=== PATIENT | female | born 1960 | race African-American/Black ===

== ENCOUNTER 2018-12-19 09:01 | Day surgery (SDC) | payer OTHER ==
--- OUTSIDE RECORDS SUMMARY | 2018-12-19 09:10 | XMS REPORT | Continuity of Care Document ---
:1960 Author Organization Interface Problems Problem Status Onset Classification Date Comments Source Date Reported FLU LIKE SYMPTOMS Active 018 [place] Discharge Diagnosis: 12/20/2016 Chest pain, 017 [facility] unspecified Discharge Diagnosis: 12/20/2016 Viral infection, 017 [facility] unspecified CHEST PAIN Active [place] [place] M54.12 - Active OPID "RADICULOPATHY, 016 [facility] CERVICAL REGION CHEST PAIN, ARMS Active [place] Final: Radiculopathy, 11/25/2015 [facility] cervical [facility] Final: Radiculopathy, 11/25/2015 [facility] lumbar region [facility] Chest pain Resolved Problem 12/20/2016 [facility] [place] Diabetes Resolved Problem 12/20/2016 [facility] FH: Resolved Problem 12/20/2016 [facility] Hypercholesterolemia [facility] Acid reflux Resolved Problem 12/20/2016 [facility] [place] History of stroke Resolved Problem 12/20/2016 [facility] HTN - Hypertension Resolved Problem 12/20/2016 [facility] Morbid obesity Active Problem 12/20/2016 [facility] [place] Neuropathy Resolved Problem 12/20/2016 [facility] [place] Sleep apnea Resolved Problem 12/20/2016 [facility] [place] Diabetes Resolved Problem 06/18/2016 [facility] [place] FH: Resolved Problem 06/18/2016 [facility] Hypercholesterolemia [facility] [place] History of stroke Resolved Problem 06/18/2016 [facility] [place] HTN - Hypertension Resolved Problem 06/18/2016 [facility] [place] Medications Medication Details Route Status Patient Ordering Order Source Instructions Provider Date Ketorolac 30 mg, 1 mL, Inactive Route: IVP, Drug 2016 form: INJ, ONCE, Dosing Weight 115.909, kg, Priority: STAT, Start date: 12/16/16 23:27:00 CDT, Stop date: 12/16/16 23:27:00 CDTNotes: (Same as:Toradol) IV bolus must be given >15 seconds. Give IM administration slowly and deeply into the muscle. Not for use > 4 days MEDICATION WASTE Product Size: 30 mg Product Wasted: ___ mg Aspirin 81 mg, 1 tab, No Longer [place] Route: PO, Drug Active 2015 [place] form: ECTAB, Daily, Dosing Weight 113.778, kg, Start date: 06/16/16 9:00:00 GAUGE MACHINE OPERATOR, Duration: 30 day, Stop date: 07/15/16 9:00:00 CSTNotes: Do not crush or chew. (Same As: Ecotrin) pantoprazole 40 40 mg=1 tab, PO, Active [place] MG Enteric Daily, # 30 tab, 2015 [place] Coated Tablet 0 Refill(s), [Protonix] Pharmacy: [facility] [id number] Aspirin 81 MG 81 mg, PO, Active [place] Enteric Coated Daily, # 30 tab, 2016 [place] Tablet 0 Refill(s), Pharmacy: [facility] [id number] amLODIPine 5 mg 5 mg=1 tab, PO, Active [place] oral tablet Daily, # 30 tab, 2015 [place] 0 Refill(s), Pharmacy: [facility] [id number] Nitroglycerin 0.4 mg, 1 tab, Inactive [place] 0.4 MG Route: SL, Drug 2015 [place] Sublingual form: TAB, Tablet Q5Min, Dosing Weight 113.778, kg, PRN Chest Pain, Start date: 06/15/16 14:11:00 GAUGE MACHINE OPERATOR, Duration: 30 day, Stop date: 07/15/16 14:10:00 GAUGE MACHINE OPERATOR Amlodipine 5 mg, 1 tab, Inactive [place] Route: PO, Drug 2015 [place] form: TAB, Daily, Dosing Weight 113.778, kg, Start date: 06/15/16 12:00:00 GAUGE MACHINE OPERATOR, Duration: 30 day, Stop date: 07/15/16 9:00:00 CSTNotes: (Same as: Norvasc) GI cocktail 30 ml, Route: Inactive [place] PO, Drug Form: 2016 [place] SUSP, Dosing Weight 113.778, kg, ONCE, Routine, Start date: 06/15/16 10:41:00 GAUGE MACHINE OPERATOR, Stop date: 06/15/16 10:41:00 CSTNotes: G.I. Cocktail=antacid with simethicone 22.5 mL - lidocaine viscous 7.5 mL Aspirin 325 MG 325 mg, 1 tab, Inactive [place] Enter[place] Coated Route: PO, Drug 2015 Tablet form: ECTAB, Daily, Dosing Weight 115.909, kg, Start date: 06/15/16 9:00:00 GAUGE MACHINE OPERATOR, Duration: 30 day, Stop date: 07/14/16 9:00:00 CSTNotes: (Do Not Crush) Do not crush or chew. Acetaminophen 1 tab, PO, Q6H, Active [place] 325 MG / PRN for pain, # 2016 [place] Hydrocodone 24 tab, 0 Bitartrate 10 Refill(s) MG Oral Tablet [[place] [address]] baclofen 20 mg 20 mg=1 tab, PO, Active [place] oral tablet BID, PRN Spasms, 2015 [place] # 60 tab, 0 Refill(s) dapagliflozin 1 TABLET, PO, Active [place] propanediol 5 Daily, 0 2015 [place] MG Oral Tablet Refill(s) [Farxiga] Alprazolam 1 MG 1 mg=1 tab, PO, Active [place] Oral Tablet TID, PRN 2016 [place] Anxiety, 0 Refill(s) gabapentin 600 600 mg=1 tab, Active [place] MG Oral Tablet PO, TID, # 270 2015 [place] tab, 0 Refill(s) solifenacin 5 mg=1 tab, PO, Active [place] succinate 5 MG Daily, # 90 tab, 2015 [place] Oral Tablet 0 Refill(s) [VESICARE] Saline Flush 10 ml, Route: No Longer [place] 0.9% IVP, Drug Form: Active [place] INJ, Dosing Weight 115.909, kg, Q12H, Start date: 06/14/16 21:00:00 GAUGE MACHINE OPERATOR, Duration: 30 day, Stop date: 07/14/16 9:00:00 CSTNotes: (Same as: BD Posiflush) Insulin, 6 unit, 0.06 mL, No Longer [place] Aspart, Human Route: SUB-Q, Active 2015 [facility] Drug form: SOLN, TID-Before Meals, Dosing Weight 115.909, kg, PRN Blood Glucose Results, Start date: 06/14/16 18:45:00 GAUGE MACHINE OPERATOR, Duration: 30 day, Stop date: 07/14/16 18:44:00 CSTNotes: Roll in palms of hands gently; Do not shake vigorously. (Same as: NovoLOG) "single patient use only" WASTE: F/P - Black; E - Municipal Trash Bin Stable for 28 days at room temperature. Expires in days from Da te Glucagon 1 mg, Route: IM, No Longer [place] Drug form: Active 2015 [place] PDR/INJ, PRN, Dosing Weight 115.909, kg, PRN Blood Glucose Results, Start date: 06/14/16 18:45:00 GAUGE MACHINE OPERATOR, Duration: 30 day, Stop date: 07/14/16 18:44:00 GAUGE MACHINE OPERATOR Dextrose 50% 25 gm, 50 mL, No Longer [place] Syringe Route: IVP, Drug Active 2015 [place] Form: INJ, Dosing Weight 115.909, kg, PRN, PRN Blood Glucose Results, Start date: 06/14/16 18:45:00 GAUGE MACHINE OPERATOR, Duration: 30 day, Stop date: 07/14/16 18:44:00 GAUGE MACHINE OPERATOR Saline Flush 10 ml, Route: No Longer [place] 0.9% IVP, Drug Form: Active 2015 [place] INJ, Dosing Weight 115.909, kg, PRN, PRN Line Flush, Start date: 06/14/16 18:41:00 GAUGE MACHINE OPERATOR, Duration: 30 day, Stop date: 07/14/16 18:40:00 CSTNotes: (Same as: BD Posiflush) Nitroglycerin 0.4 mg, 1 tab, No Longer [place] Route: SL, Drug Active 2015 [place] form: TAB, Q5Min, Dosing Weight 115.909, kg, PRN Chest Pain, Start date: 06/14/16 18:41:00 GAUGE MACHINE OPERATOR, Duration: 3 doses or times, Stop date: Limited # of timesNotes: (Same as:Nitroquick, Nitrostat) "Do Not Crush" Sublingual tablet Acetaminophen 650 mg, 2 tab, No Longer [place] Route: PO, Drug Active 2015 [place] form: TAB, Q4H, Dosing Weight 115.909, kg, PRN Pain 1-3/Temp > 100.4 F, Start date: 06/14/16 18:38:00 GAUGE MACHINE OPERATOR, Duration: 30 day, Stop date: 07/14/16 18:37:00 CSTNotes: Do not exceed 4 gm/day. (Same as: Tylenol) Ondansetron 4 mg, 2 mL, No Longer [place] Route: IVP, Drug Active 2015 [place] form: INJ, Q6H, Dosing Weight 115.909, kg, PRN Nausea & Vomiting, Start date: 06/14/16 18:38:00 GAUGE MACHINE OPERATOR, Duration: 30 day, Stop date: 07/14/16 18:37:00 CSTNotes: (Same as: Dariela) MEDICATION WASTE Product Size: 4 mg Product Wasted: ___ mg Morphine 2 mg, 1 mL, No Longer [place] Route: IVP, Drug Active 2015 [place] form: INJ, Q4H, Dosing Weight 115.909, kg, PRN Pain Score 7-10, Start date: 06/14/16 18:38:00 GAUGE MACHINE OPERATOR, Duration: 30 day, Stop date: 07/14/16 18:37:00 CSTNotes: (Same as:MORPhine Sulfate) Morphine 2 mg, 1 mL, Inactive [place] Route: IVP, Drug 2015 [place] form: INJ, ONCE, Dosing Weight 115.909, kg, Priority: STAT, Start date: 06/14/16 16:09:00 GAUGE MACHINE OPERATOR, Stop date: 06/14/16 16:09:00 CSTNotes: (Same as:MORPhine Sulfate) Nitroglycerin 0.4 mg, 1 tab, No Longer [place] Route: SL, Drug Active 2015 [place] form: TAB, Q5Min, Dosing Weight 115.909, kg, PRN Chest Pain, Start date: 06/14/16 16:09:00 GAUGE MACHINE OPERATOR, Duration: 3 doses or times, Stop date: Limited # of timesNotes: (Same as:Nitroquick, Nitrostat) "Do Not Crush" Sublingual tablet Saline Flush 10 mL, Route: No Longer [place] 0.9% IVP, Drug Form: Active [place] INJ, Dosing Weight 115.909, kg, PRN, PRN Line Flush, Start date: 06/14/16 16:09:00 GAUGE MACHINE OPERATOR, Duration: 30 day, Stop date: 07/14/16 16:08:00 CSTNotes: (Same as: BD Posiflush) Aspirin 324 mg, 4 tab, Inactive [place] Route: PO, Drug 2015 [place] form: CHEWTAB, ONCE, Dosing Weight 115.909, kg, Priority: STAT, Start date: 06/14/16 16:09:00 GAUGE MACHINE OPERATOR, Stop date: 06/14/16 16:09:00 CSTNotes: Take with food. Allergies, Adverse Reactions, Alerts Substance Category Reaction Severity Reaction Status Date Comments Source type Reported Immunizations Immunization Date Given Site Status Last Updated Comments Source Results Order Name Results Value Reference Date Interpretation Comments Source Range Chest 2 Chest 2 CHEST TWO VIEW 08/29 - views DX views - [facility] INDICATION: Cough and congestion. Patient having difficulty swallowing and breathing. Patient complains of a sore throat since yesterday Read by: Reyes Vail MD Dictated Date/time: 08/29/17 11:56 Electronically Signed by: Reyes Vail MD 08/29/17 11:57 FINAL REPORT COMPARISON: 06/14/2016 chest x-ray FINDINGS: The lungs are clear. The pleura, cardiomediastinal silhouette and bony thorax are normal. IMPRESSION: Negative. END IMPRESSION SL: [id number] CARDIAC BNP <2 pg/mL <=100 12/17 ENZYMES pg/mL /2016 [facility] ELECTROLYT Sodium Lvl 140 meq/L 135 - 145 12/17 ES [facility] ELECTROLYT Potassium 3.6 meq/L 3.5 - 5.1 12/17 ES Lvl [facility] ELECTROLYT Chloride Lvl 105 meq/L 95 - 109 12/17 [facility] ELECTROLYT CO2 26 meq/L 24 - 32 12/17 [facility] ELECTROLYT AGAP 12.6 meq/L 10.0 - 12/17 ES 20.0 [facility] ELECTROLYT Calcium Lvl 8.9 mg/dL 8.5 - 10.5 12/17 ES [facility] ELECTROLYT eGFR 115 12/17 Result Comment: The eGFR is calculated using the CKD-EPI formula. In most young, healthy individuals the eGFR will be >90 mL/ min/1.73m2. The eGFR declines with age. An eGFR of 60-89 may be normal in ES mL/min/1. some populations, particularly the elderly, for whom the CKD-EPI formula has not been extensively validated. Use of the eGFR is not recommended in the following populations: [place] [id number] Individuals with unstable creatinine concentrations, including patients and those with serious co-morbid conditions. Patients with extremes in muscle mass or diet. The data above are obtained from the National Kidney Disease Education Program (NKDEP) which additionally recommends that when the eGFR is used in patients with extremes of body mass index for purposes of drug dosing, the eGFR should be multiplied by the estimated BMI. ELECTROLYT Glucose Lvl 160 mg/dL 70 - 99 12/17 [facility] ELECTROLYT BUN 20 mg/dL 7 - 22 12/17 [facility] ELECTROLYT Creatinine 0.61 mg/dL 0.50 - 12/17 ES Lvl 1.40 [facility] CARDIAC Troponin-I null 0.00 - 12/17 EN[place]YMES 0.40 [facility] CHEM PANEL eGFR 97 12/17 Result Comment: The eGFR is calculated using the CKD-EPI formula. In most young, healthy individuals the eGFR will be >90 mL/ min/1.73m2. The eGFR declines with age. An eGFR of 60-89 may be normal in mL/min/1. some populations, particularly the elderly, for whom the CKD-EPI formula has not been extensively validated. Use of the eGFR is not recommended in the following populations: [place] [address] Individuals with unstable creatinine concentrations, including patients and those with serious co-morbid conditions. Patients with extremes in muscle mass or diet. The data above are obtained from the National Kidney Disease Education Program (NKDEP) which additionally recommends that when the eGFR is used in patients with extremes of body mass index for purposes of drug dosing, the eGFR should be multiplied by the estimated BMI. CHEM PANEL Potassium 5.2 meq/L 3.5 - 5.1 12/17 Result Lvl /2017 Comment: [facility] Specimen is hemolyzed. Recommend recollect if a more accurate quantificatio n of potassium is desired. SK at 12/16/2016 23:13 CHEM PANEL Sodium Lvl 137 meq/L 135 - 145 12/17 [facility] CHEM PANEL Creatinine 0.78 mg/dL 0.50 - 12/17 MH Lvl 1.40 [facility] CHEM PANEL BUN 19 mg/dL 7 - 22 12/17 [facility] CHEM PANEL Glucose Lvl 144 mg/dL 70 - 99 12/17 [facility] CHEM PANEL CO2 26 meq/L 24 - 32 12/17 [facility] CHEM PANEL AGAP 12.2 meq/L 10.0 - 12/17 MH 20.0 [facility] CHEM PANEL Chloride Lvl 104 meq/L 95 - 109 12/17 [facility] CHEM PANEL Calcium Lvl 9.1 mg/dL 8.5 - 10.5 12/17 [facility] HEMATOLOGY MCV 84.8 fL 80.0 - 12/17 98.0 /2016 [facility] HEMATOLOGY MCH 27.3 pg 27.0 - 12/17 31.0 /2016 [facility] HEMATOLOGY Platelet 211 K/CMM 133 - 450 12/17 [facility] HEMATOLOGY MPV 9.8 fL 7.4 - 10.4 12/17 [facility] HEMATOLOGY MCHC 32.2 g/dL 32.0 - 12/17 36.0 /2016 [facility] HEMATOLOGY RDW 14.2 % 11.5 - 12/17 MH 14.5 [facility] HEMATOLOGY Hgb 12.9 g/dL 12.0 - 12/17 16.0 [facility] HEMATOLOGY Hct 40.1 % 36.0 - 12/17 48.0 /2017 [facility] HEMATOLOGY RBC 4.73 M/CMM 4.20 - 12/17 MH 5.40 /2017 [facility] HEMATOLOGY WBC 11.4 K/CMM 3.7 - 10.4 12/17 [facility] HEMATOLOGY Eosinophils 0.1 K/CMM 0.0 - 0.5 12/17 MH # /2016 [facility] HEMATOLOGY Monocytes # 0.7 K/CMM 0.0 - 0.8 12/17 [facility] HEMATOLOGY Segs-Bands # 6.5 K/CMM 1.5 - 8.1 12/17 [facility] HEMATOLOGY Basophils 0.3 % 0.0 - 1.0 12/17 [facility] HEMATOLOGY Lymphocytes 3.7 K/CMM 1.0 - 5.5 12/17 # /2016 [facility] HEMATOLOGY Eosinophils 0.5 % 0.0 - 4.0 12/17 [facility] HEMATOLOGY Monocytes 6.6 % 2.0 - 12.0 12/17 [facility] HEMATOLOGY Segs 58.8 % 45.0 - 12/17 75.0 [facility] HEMATOLOGY Plt Morph Normal 12/17 [facility] (12/16/16 10:40 PM) HEMATOLOGY Lymphocytes 33.8 % 20.0 - 12/17 40.0 [facility] HEMATOLOGY RBC Morph Normal 12/17 [facility] (12/16/16 10:40 PM) Chest Chest 1view Clinical Indication: Dyspnea - sob cp 12/16 - 1view DX - [facility] Comparison: None Read by: Song Stevenson MD Dictated Date/time: 12/16/16 23:17 FINDINGS: Electronically Signed by: Song Stevenson MD 12/16/16 23:19 FINAL REPORT The frontal chest radiograph shows decreased lung volumes without interstitial or airspace opacities, pleural effusions or pneumothorax. The cardiomediastinal contours are borderline in size with mild pulmonary vascular congestion and with aortic tortuosity. There are postoperative changes in the cervical region. IMPRESSION: There is borderline cardiac enlargement with mild pulmonary vascular engorgement but no definite congestive failure is identified. SL: 82 CHEM PANEL Calcium Lvl 8.8 mg/dL 8.5 - 10.5 06/15 [place] CHEM PANEL Chloride Lvl 103 meq/L 95 - 109 06/15 [place] CHEM PANEL Sodium Lvl 140 meq/L 135 - 145 06/15 [place] CHEM PANEL Potassium 4.1 meq/L 3.5 - 5.1 06/15 [place] CHEM PANEL CO2 28 meq/L 24 - 32 06/15 [place] CHEM PANEL eGFR 108 06/15 Result Comment: The eGFR is calculated using the CKD-EPI formula. In most young, healthy individuals the eGFR will be >90 mL/ min/1.73m2. The eGFR declines with age. An eGFR of 60-89 may be normal in [place] mL/min/1.7 some populations, particularly the elderly, for whom the CKD-EPI formula has not been extensively validated. Use of the eGFR is not recommended in the following populations: [place] 3m2 Individuals with unstable creatinine concentrations, including patients and those with serious co-morbid conditions. Patients with extremes in muscle mass or diet. The data above are obtained from the National Kidney Disease Education Program (NKDEP) which additionally recommends that when the eGFR is used in patients with extremes of body mass index for purposes of drug dosing, the eGFR should be multiplied by the estimated BMI. CHEM PANEL BUN 25 mg/dL 7 - 22 06/15 MH [facility] CHEM PANEL Creatinine 0.72 mg/dL 0.50 - 06/15 [place] Lvl 1.40 [facility] CHEM PANEL Glucose Lvl 146 mg/dL 70 - 99 06/15 [place] CHEM PANEL AGAP 13.1 meq/L 10.0 - 06/15 MH [place] 20.0 [place] HEMATOLOGY WBC 9.3 K/CMM 3.7 - 10.4 06/15 [place] HEMATOLOGY Hgb 12.6 g/dL 12.0 - 06/15 MH [place] 16.0 [place] HEMATOLOGY Hct 39.8 % 36.0 - 06/15 MH [place] 48.0 /2015 [place] HEMATOLOGY RBC 4.69 M/CMM 4.20 - 06/15 MH [place] 5.40 [place] HEMATOLOGY MCH 26.9 pg 27.0 - 06/15 MH [place] 31.0 [place] HEMATOLOGY MCV 84.8 fL 80.0 - 06/15 MH [place] 98.0 /2015 [place] HEMATOLOGY MCHC 31.7 g/dL 32.0 - 06/15 MH [place] 36.0 [place] HEMATOLOGY RDW 14.7 % 11.5 - 06/15 MH [place] 14.5 [place] HEMATOLOGY Platelet 242 K/CMM 133 - 450 06/15 [place] HEMATOLOGY MPV 9.6 fL 7.4 - 10.4 06/15 [place] HEMATOLOGY Segs 54.6 % 45.0 - 06/15 MH [place] 75.0 /2015 [place] HEMATOLOGY Segs-Bands # 5.1 K/CMM 1.5 - 8.1 06/15 [place] HEMATOLOGY Basophils 0.6 % 0.0 - 1.0 11/11 MH [place] /2016 [place] HEMATOLOGY Monocytes 6.7 % 2.0 - 12.0 06/15 [place] /2016 [place] HEMATOLOGY Lymphocytes 37.6 % 20.0 - 06/15 [place] 40.0 /2016 [place] HEMATOLOGY Eosinophils 0.5 % 0.0 - 4.0 06/15 [place] /2016 [place] HEMATOLOGY Monocytes # 0.6 K/CMM 0.0 - 0.8 06/15 [place] /2016 [place] HEMATOLOGY Basophils # 0.1 K/CMM 0.0 - 0.2 06/15 [place] /2016 [place] HEMATOLOGY Eosinophils 0.0 K/CMM 0.0 - 0.5 06/15 [place] # /2016 [place] HEMATOLOGY Lymphocytes 3.5 K/CMM 1.0 - 5.5 06/15 [place] # /2016 [place] CARDIAC Troponin-I null 0.00 - 06/15 [place] 0.40 [place] CARDIAC Total CK 35 unit/L 12 - 191 06/15 [place] /2016 [place] CARDIAC Troponin-I null 0.00 - 06/15 [place] EN[place] 0.40 [place] CARDIAC Total CK 69 unit/L 12 - 191 06/15 [place] /2016 [place] LIPIDS HDL 53 mg/dL >=61 mg/dL 06/15 [place] /2016 [place] LIPIDS Chol 232 mg/dL <=199 06/15 [place] mg/dL /2016 [place] LIPIDS CHD Risk 4.38 3.90 - 06/15 [place] 5.80 /2015 [place] LIPIDS LDL 111 mg/dL <=99 mg/dL 06/15 [place] (Calculated) /2015 [place] LIPIDS VLDL 68 06/15 [place] /2015 [place] LIPIDS Trig 340 mg/dL <=149 06/15 [place] mg/dL /2016 [place] URINE AND UA RBC 1 /HPF 0 - 2 06/14 [place] STOOL /2016 [place] URINE AND UA Sq Epi Many /LPF Few /LPF 06/14 [place] STOOL 2016 [place] URINE AND UA Mucus Few /LPF None Seen 06/14 [place] STOOL /LPF /2015 [place] URINE AND UA WBC 6 /HPF 0 - 5 06/14 [place] STOOL /2016 [place] URINE AND UA Leuk Est Negative Negative 06/14 [place] STOOL /2016 [place] (06/14/16 5:36 PM) URINE AND UA Blood Negative Negative 06/14 [place] STOOL /2015 [place] (06/14/16 5:36 PM) URINE AND UA Nitrite Negative Negative 06/14 [place] (06/14/16 5:36 PM) URINE AND UA <=1.0 0.1 - 1.0 06/14 [place] STOOL Urobilinogen mg/dL [facility] URINE AND UA Ketones Negative Negative 06/14 [place] mg/dL mg/dL [facility] URINE AND UA Bili Negative Negative 06/14 [place] *NA* (06/14/16 5:36 PM) URINE AND UA Color Light Yellow Yellow 06/14 [place] *NA* (06/14/16 5:36 PM) URINE AND UA Turbidity Slight Clear 06/14 [place] *ABN* (06/14/16 5:36 PM) URINE AND UA Spec Grav 1.029 <=1.030 06/14 [place] STOOL [facility] URINE AND UA Glucose 500 mg/dL Negative 06/14 [place] STOOL mg/dL [facility] URINE AND UA pH 5.0 5.0 - 8.0 06/14 [place] STOOL [facility] URINE AND UA Protein Negative Negative 06/14 [place] STO[place] mg/dL mg/dL [facility] VIRAL - Influ A Negative Negative 06/14 [place] SEROLOGY [facility] (06/14/16 5:23 PM) VIRAL - Influ B Negative Negative 06/14 [place] SEROLOGY [facility] (06/14/16 5:23 PM) CARDIAC Total CK 81 unit/L 12 - 191 06/14 [place] ENZYMES [facility] CARDIAC Troponin-I null 0.00 - 06/14 [place] ENZYMES 0.40 [facility] CARDIAC CK MB 0.7 ng/mL 0.5 - 3.6 06/14 [place] ENZYMES [facility] CARDIAC CK MB Index 0.9 0.0 - 2.5 06/14 [place] ELECTROLYT AGAP 16.3 meq/L 10.0 - 06/14 [place] ES 20.0 /2015 [place] ELECTROLYT B/C Ratio 28 6 - 25 06/14 [place] ELECTROLYT eGFR 83 06/14 Result Comment: The eGFR is calculated using the CKD-EPI formula. In most young, healthy individuals the eGFR will be >90 mL/ min/1.73m2. The eGFR declines with age. An eGFR of 60-89 may be normal in [place] mL/min/1.7 /2016 some populations, particularly the elderly, for whom the CKD-EPI formula has not been extensively validated. Use of the eGFR is not recommended in the following populations: [place] 3m2 Individuals with unstable creatinine concentrations, including patients and those with serious co-morbid conditions. Patients with extremes in muscle mass or diet. The data above are obtained from the National Kidney Disease Education Program (NKDEP) which additionally recommends that when the eGFR is used in patients with extremes of body mass index for purposes of drug dosing, the eGFR should be multiplied by the estimated BMI. ELECTROLYT Alk Phos 104 unit/L 39 - 136 06/14 MH [place] ELECTROLYT Bili Total 0.2 mg/dL 0.2 - 1.3 06/14 [place] ELECTROLYT ALT 28 unit/L 0 - 65 06/14 [place] ELECTROLYT AST 18 unit/L 0 - 37 06/14 [place] ELECTROLYT A/G Ratio 0.9 0.7 - 1.6 06/14 [place] ELECTROLYT Globulin 4.3 g/dL 2.7 - 4.2 06/14 [place] ELECTROLYT Potassium 4.3 meq/L 3.5 - 5.1 06/14 [place] ES Lvl [place] ELECTROLYT Chloride Lvl 102 meq/L 95 - 109 06/14 [place] ELECTROLYT BUN 25 mg/dL 7 - 22 06/14 [place] ELECTROLYT Sodium Lvl 143 meq/L 135 - 145 06/14 [place] ELECTROLYT Creatinine 0.89 mg/dL 0.50 - 06/14 [place] ES Lvl 1.40 [place] ELECTROLYT Total 8.0 g/dL 6.4 - 8.4 06/14 [place] ES Protein [place] ELECTROLYT Albumin Lvl 3.7 g/dL 3.5 - 5.0 06/14 [place] ELECTROLYT Glucose Lvl 166 mg/dL 70 - 99 06/14 [place] ELECTROLYT CO2 29 meq/L 24 - 32 06/14 [place] ELECTROLYT Calcium Lvl 9.9 mg/dL 8.5 - 10.5 06/14 [place] HEMATOLOGY MCH 26.6 pg 27.0 - 06/14 [place] 31.0 /2015 [place] HEMATOLOGY WBC 12.1 K/CMM 3.7 - 10.4 06/14 [place] /2015 [place] HEMATOLOGY Hgb 14.4 g/dL 12.0 - 06/14 [place] 16.0 /2015 [place] HEMATOLOGY RBC 5.40 M/CMM 4.20 - 06/14 [place] 5.40 /2015 [place] HEMATOLOGY Hct 45.8 % 36.0 - 06/14 [place] 48.0 /2015 [place] HEMATOLOGY MCV 84.7 fL 80.0 - 06/14 [place] 98.0 /2015 [place] HEMATOLOGY MCHC 31.4 g/dL 32.0 - 06/14 [place] 36.0 /2015 [place] HEMATOLOGY Platelet 289 K/CMM 133 - 450 06/14 [place] HEMATOLOGY MPV 10.1 fL 7.4 - 10.4 06/14 /2015 [place] HEMATOLOGY RDW 15.0 % 11.5 - 06/14 [place] 14.5 /2015 [place] HEMATOLOGY Eosinophils 0.0 K/CMM 0.0 - 0.5 06/14 [place] # /2015 [place] HEMATOLOGY Basophils # 0.1 K/CMM 0.0 - 0.2 06/14 [place] HEMATOLOGY Large Plt Slight 06/14 [place] HEMATOLOGY Basophils 0.6 % 0.0 - 1.0 06/14 [place] HEMATOLOGY Segs-Bands # 7.6 K/CMM 1.5 - 8.1 06/14 [place] HEMATOLOGY Monocytes 5.7 % 2.0 - 12.0 06/14 [place] HEMATOLOGY Eosinophils 0.3 % 0.0 - 4.0 06/14 [place] HEMATOLOGY Lymphocytes 3.7 K/CMM 1.0 - 5.5 06/14 [place] # /2016 [place] HEMATOLOGY Lymphocytes 30.6 % 20.0 - 06/14 [place] 40.0 /2016 [place] HEMATOLOGY Monocytes # 0.7 K/CMM 0.0 - 0.8 06/14 [place] HEMATOLOGY Segs 62.8 % 45.0 - 06/14 [place] 75.0 /2015 [place] HEMATOLOGY Plt Morph Normal 06/14 [place] (06/14/16 4:29 PM) HEMATOLOGY RBC Morph Normal 06/14 [place] (06/14/16 4:29 PM) Chest Chest 1view Exam: Chest x-ray, one view 06/14 [place] 1[place] DX Reason for Exam: Chest pain Read by: Raj Enriquez MD Dictated Date/time: 06/14/16 16:47 Electronically Signed by: Raj Enriquez MD 06/14/16 16:47 FINAL REPORT Comparison Exam: Mid chest pain Discussion: Cardiomediastinal silhouette is within normal limits. Both hemidiaphragms well visualized. No pulmonary edema or pleural effusions. No focal lung consolidations. No acute bony abnormalities. Impression: 1. No acute cardiopulmonary abnormalities. Spine Spine lumbar MRI LUMBAR SPINE WITHOUT AND WITH CONTRAST 11/21 OPI lumbar w/ [facility] w/ contrast MRI [place] contrast MRI TECHNIQUE: Sagittal T1, sagittal T2 with fat saturation, axial T1 and axial T2 images were obtained. Intravenous gadolinium was given. Read by : Gregg Yoder MD Dictated Date/time: 11/23/15 09:48 Electronically Signed by: Gregg Yoder MD 11/23/15 09:56 FINAL REPORT COMPARISON: No prior exam. FINDINGS: The paravertebral soft tissues are normal. The conus medullaris terminates at the L1-L2 level. T11-T12 moderate facet osteoarthritis is seen with moderate right foraminal stenosis and mild central canal stenosis. T12-L1: Unremarkable. L1-L2: Unremarkable. L2-L3: Unremarkable. L3-L4: 2.4 mm right paracentral shallow disc protrusion is present with small annular fissure with mild central canal stenosis. No foraminal stenosis. L4-L5: Moderate facet osteoarthritis and ligamenta flava redundancy is present. Left intracanalicular subligamentous synovial cyst measuring 4 mm is present. Mild central canal stenosis is present. No significant foraminal stenosis. L5-S1: Severe bilateral facet osteoarthritis is present with facet joint fluid. No intracanalicular synovial cyst is seen. Left posterior extracanalicular 7 mm synovial cyst is present. There is desicca tion is seen with 3.5 mm disc bulge and mild thecal sac stenosis. There is severe right foraminal stenosis and moderate left foraminal stenosis due to the facet osteoarthritis and foraminal osteophytes. No abnormal enhancement is seen. IMPRESSION: 1. Multilevel disc degenerative disease and spondylosis. 2. T11-T12 moderate right foraminal stenosis and mild central canal stenosis due to posterior element degenerative changes. 3. L3-L4 mild central canal stenosis 4. L4-L5 mild central canal stenosis. Left intracanalicular synovial cyst is present as above. 5. L5-S1 severe facet osteoarthritis with mild central canal stenosis, severe right foraminal stenosis, moderate left foraminal stenosis. Spine Spine MRI CERVICAL SPINE WITHOUT AND WITH CONTRAST 11/21 - [facility] cervical cervical /2015 - [facility] w/wo w/ [place] contrast contrast MRI MRI TECHNIQUE: Multiplanar multisequence imaging of the cervical spine was performed without and with administration of intravenous gadolinium. Read by: Gregg Yoder MD Dictated Date/time: 11/23/15 09:26 Electronically Signed by: Gregg Yoder MD 11/23/15 09:45 FINAL REPORT COMPARISON: No prior exam. FINDINGS: Multilevel disc desiccation is seen.Mild cervical spine kyphosis is present , likely due to muscle spasm or patient positioning. C3-C7 laminectomies have been performed. No pseudomeningocele is identified. C2-C3: Unremarkable. C3-C4: Left paracentral broad base 3 mm disc protrusion is seen, without central canal stenosis due to the laminectomy. Mild indentation of the left anterior cord margin is present. No foraminal stenosis. C4-C5: Left asymmetric posterior disc osteophyte complex measuring 3.6 mm is present. No central canal stenosis due to the laminectomy. Mild cord indentation is present. Bilateral foraminal osteophytes and uncovertebral joint arthrosis are present with mild bilateral foraminal stenosis. C5-C6: Left paracentral broad-based 5 mm disc protrusion is present. No central canal stenosis. Mild cord indentation is present. Severe left foraminal stenosis is present due to left foraminal osteophy vinod and UVJ arthrosis. Mild right foraminal stenosis is present. C6-C7: 2.8 mm posterior disc osteophyte complex is seen. No central canal stenosis or cord indentation due to the laminectomy. Eoki-po-[id number] bilateral foraminal stenosis is present. C7-T1: Unremarkable. The cervical cord signal is unremarkable without MRI evidence of myelomalacia. No abnormal enhancement is identified. IMPRESSION: 1. Multilevel disc degenerative disease and spondylosis. C3-C7 laminectomies. No pseudomeningocele. 2. Multiple level left paracentral or central disc osteophyte complexes or protrusions with mild cord indentation. No MRI evidence of cervical cord myelomalacia or edema. No central canal stenosis due to the laminectomies. 3. C5-C6 severe left foraminal stenosis. C6-C7 mild to moderate bilateral foraminal stenosis. Other levels of mild mild foraminal stenosis are present. Lung Lung NUCLEAR MEDICINE VENTILATION PERFUSION SCAN 03/03 [facility] ventilatio ventilation/ /2014 n/perfusio perfusion n scan NM scan NM DATE: March 03, 2015 11:12:45 AM Read by: Alex Oropeza MD Dictated Date/time: 03/03/15 11:22 Electronically Signed by: Alex Oropeza MD 03/03/15 12:02 FINAL REPORT INDICATION:Chest pain rule out PE COMPARISON: The single view chest and nondiagnostic CTA of the chest as well as lower extremity Doppler from yesterday TECHNIQUE: After the inhalation of 12 mCi of xenon-133, initial single breath image followed by equilibrium and washout images were obtained of the chest in the anterior-posterior projections. After the intravenous administration of 6.3 mCi of Tc 99m MAA, images of the thorax were obtained in the anterior, posterior, anterior oblique, posterior oblique, and lateral projections. FINDINGS: PERFUSION: There is homogeneous radiotracer activity in both lungs. There are no segmental or subsegmental defects. The cardiac silhouette is normal in size. VENTILATION: Normal homogeneous radiotracer activity in both lungs. The wash out is normal. No evidence of air trapping. IMPRESSION: Very low probability for acute pulmonary embolism. Findings and evaluation discussed with Dr. Vero Wood of nuclear medicine, who concurred. Knee 1-2 Knee 1-2 EXAM: Left Knee AP and lateral 03/03 [facility] Views Views /2014 unilateral unilateral HISTORY: Pain and swelling DX DX COMPARISON: None Read by: Alvin Crabtree MD Dictated Date/time: 03/03/15 01:22 Electronically Signed by: Alvin Crabtree MD 03/03/15 01:22 FINAL REPORT FINDINGS: There is no fracture or dislocation. There is tricompartmental joint space narrowing with subchondral sclerosis and marginal osteophytes. There is no significant joint effusion. IMPRESSION: No fracture or dislocation Ext Lower Ext Lower LOWER EXTREMITY VENOUS DOPPLER 03/02 [facility] Venous Venous /2014 Doppler Doppler Unilat US Unilat US CLINICAL HISTORY: Read by: Alvin Crabtree MD Dictated Date/time: 03/02/15 23:45 Lower extremity pain and swelling. Electronically Signed by: Alvin Crabtree MD 03/02/15 23:45 FINAL REPORT TECHNIQUE: The left deep venous system was evaluated with membreno scale, color Doppler, and spectral Doppler sonography. FINDINGS: The veins of the left lower extremity show no evidence of filling defect. There is normal respiratory phasicity on spectral doppler imaging and normal compressibility. IMPRESSION: No evidence of DVT. Brain wo Brain wo CT BRAIN WITHOUT CONTRAST 03/02 [facility] contrast contrast CT /2014 CT COMPARISON: No prior exam. Read by: Alvin Crabtree MD Dictated Date/time: 03/02/15 23:38 Electronically Signed by: Alvin Crabtree MD 03/02/15 23:39 FINAL REPORT COMMENTS: Coronal and sagittal reformatted images are also submitted for interpretation. The DLP is 777 mGy - cm. There is no acute infarct, hemorrhage, mass, edema, hydrocephalus, or extra -axial fluid collection. The paranasal sinuses and mastoid air cells are clear. There is no fracture. IMPRESSION: No acute intracranial abnormality. Chest Chest CHEST CTA 03/02 [facility] Pulmonary Pulmonary /2014 Embolism Embolism CTA CTA CLINICAL HISTORY: Read by: Alvin Crabtree MD Dictated Date/time: 03/02/15 23:40 Chest pain. Electronically Signed by: Alvin Crabtree MD 03/02/15 23:43 FINAL REPORT TECHNIQUE: A volumetric CT was acquired with IV contrast and displayed in multiplanar reconstructions. Data were acquired during maximal opacification of the main pulmonary artery. DLP is 745 mGy-cm. COMPARISON IMAGING: None. FINDINGS: Pulmonary Arteries: Please note that the quality of this study's contrast bolus for the detection of emboli is nondiagnostic due to poor opacification of the pulmonary arteries (145 tonsil units). Mediastinum: Visualized lymph nodes are within normal limits for CT size criteria. No acute aortic abnormality, pericardial effusion, or mediastinal mass. Upper Abdomen: Visualized segments of the abdominal organs are unremarkable. Lungs: Pleural surfaces are unremarkable. There is no suspicious pulmonary nodularity, consolidation, or interstitial thickening. Bones: No suspicious bone lesion is seen. IMPRESSION: The exam is nondiagnostic for the evaluation of pulmonary embolisms due to poor opacification of the pulmonary arteries. No acute findings. Chest Chest [facility] Clinical History: See Clinic Indication 03/02 - [facility] DX /2014 - [place] Exam: CHEST Mar 02, 2015 10:34:00 PM Read by: Alvin Crabtree MD Dictated Date/time: 03/02/15 22:56 Electronically Signed by: Alvin Crabtree MD 03/02/15 22:56 FINAL REPORT Comparison: No previous exam. Findings: The lungs are clear. The heart is normal in size. There is no pneumothorax or pleural effusion. There is no acute fracture. IMPRESSION: No acute cardiopulmonary abnormality. Vital Signs Vital Sign Value Date Comments Source Heart Rate 80 12/17/2016 [facility] [place] Oral (F) 98.2 F 12/17/2016 [facility] [place] Systolic (mm Hg) 125 12/17/2016 [facility] [place] Diastolic (mm Hg) 70 12/17/2016 [facility] [place] Respitory Rate 15 12/17/2016 [facility] [place] Heart Rate 77 12/17/2016 [facility] [place] Systolic (mm Hg) 129 12/17/2016 [facility] [place] Diastolic (mm Hg) 73 12/17/2016 [facility] [place] Temperature Oral (F) 98.3 F 12/17/2016 [facility] [place] Respitory Rate 17 12/17/2016 [facility] [place] Heart Rate 84 12/17/2016 [facility] [place] Systolic (mm Hg) 129 12/17/2016 [facility] [place] Diastolic (mm Hg) 69 12/17/2016 [facility] [place] Temperature Oral (F) 98.2 F 12/17/2016 [facility] [place] Respitory Rate 18 12/17/2016 [facility] [place] BMI Calculated 42.52 12/17/2016 [facility] [place] Weight 115.909 12/17/2016 [facility] [place] Height 165.1 cm 12/17/2016 [facility] [place] Respitory Rate 18 06/15/2016 [place] Heart Rate 74 06/15/2016 [place] Temperature Oral (F) 97.7 F 06/15/2016 [place] Systolic (mm Hg) 113 06/15/2016 [place] Diastolic (mm Hg) 76 06/15/2016 [place] Systolic (mm Hg) 106 06/15/2016 [place] Diastolic (mm Hg) 68 06/15/2016 [place] Respitory Rate 18 06/15/2016 [place] Heart Rate 95 06/15/2016 [place] Temperature Oral (F) 98.0 F 06/15/2016 [place] Respitory Rate 19 06/15/2016 [place] Heart Rate 97 06/15/2016 [place] Systolic (mm Hg) 109 06/15/2016 [place] Diastolic (mm Hg) 66 06/15/2016 [place] Temperature Oral (F) 97.6 F 06/15/2016 [place] Weight 113.778 06/15/2016 [place] BMI Calculated 41.74 06/15/2016 [place] Height 165.1 cm 06/15/2016 [place] Height 165.1 cm 06/14/2016 [place] Weight 115.909 06/14/2016 [place] BMI Calculated 42.52 06/14/2016 [place] Encounters Location Location Encounter Encounter Reason Attending ADM DC Status Source Details Type Number For Provider Date Date Visit [facility] Outpt Diag [id number] Apollo Raygoza 11/21 11/22 [facility] [id number] No 06/14 06/16 [place] 1 Abdelhamid /2015 [facility] [place] [facility] [id number] LAYNE 08/17 [facility] 0 [facility] Emergency [id number] Shawna 12/17 12/17 [place] 0 [facility] /2016 [facility] Outpatient [id number] LAY[place] 12/18 [facility] 1 [place] Procedures Procedure Code Date Perfomer Comments Source Hysterectomy [id number] [facility] Operative procedure [id number] [facility] on spine [facility] Tonsillectomy [id number] [facility] Hysterectomy [id number] [place] replacement [id number] [place] Operative procedure [id number] [place] T[facility]lectomy [id number] [place] Hyste[place] [id number] [place] Knee replacement [id number] [place] Operative procedure [id number] [place] Tonsillectomy [id number] [place]
--- OUTSIDE RECORDS SUMMARY | 2018-12-19 09:11 | XMS REPORT ---
:1960 Author Organization [employer] Care Team Providers Name Role Phone Gely, Sia Provider Role Unavailable Allergies No Known Allergies Problems Problem Type Condition Code Onset Dates Condition Status Problem DDD (degenerative disc disease), M51.37 Active lumbosacral Problem Osteoarthritis of knee, unspecified M17.10 Active laterality, unspecified osteoarthritis type Problem Incontinence R32 Active Problem Candidiasis of vagina B37.3 Active Problem Osteoarthritis of multiple joints M15.9 Active Problem Unsteady gait R26.81 Active Assessment Seasonal allergies J30.2 Active Problem Rheumatoid arthritis M06.9 Active Problem Diabetes E11.9 Active Problem Benign essential HTN I10 Active Problem Back pain M54.9 Active Problem Mixed hyperlipidemia E78.2 Active Problem Hyperglycemia R73.9 Active Problem Morbid obesity E66.01 Active Problem Acute vaginitis N76.0 Active Problem Uncontrolled type 2 diabetes E11.65 Active mellitus without complication, without long-term current use of insulin Problem Other specified bacterial agents as B96.89 Active the cause of diseases classified elsewhere Problem Neuropathy G62.9 Active Problem Primary osteoarthritis of knee, M17.10 Active unspecified laterality Problem History of fall Z91.81 Active Problem Pain in left shoulder M25.512 Active Problem Vitamin D deficiency E55.9 Active Problem Seasonal allergies J30.2 Active Problem Other chronic pain G89.29 Active Problem Bronchitis J40 Active Problem Daytime somnolence R40.0 Active Problem Chest pain, unspecified type R07.9 Active Assessment Pharyngitis, unspecified etiology J02.9 Active Problem 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 Assessment Yeast UTI B37.49 Active Problem Obstructive sleep apnea G47.33 Active Problem Encounter for screening for Z12.31 Active malignant neoplasm of breast Problem Itching with irritation L29.9 Active Problem Obesity due to excess calories E66.09 Active Problem Scabies B86 Active Problem Chills with fever R50.9 Active Problem Acute pain of left shoulder M25.512 Active Problem Influenza-like illness R69 Active Problem Arthritis M19.90 Active Problem Anxiety F41.9 Active Problem Primary osteoarthritis of both M17.0 Active knees Problem Nephrolithiasis N20.0 Active Problem Abnormal urine odor R82.90 Active Problem Gastroesophageal reflux disease K21.0 Active with esophagitis Problem Controlled type 2 diabetes mellitus E11.9 Active without complication, without long-term current use of insulin Medications Medication Code Code Instructions Start End Status Dosage System Date Date Metoprolol [facility] 96756026108 25 Orally once Active 1 tablet with Tartrate a day food Tradjenta [facility] 38901408951 5 MG Orally Active 1 tablet Once a day Fluconazole [facility] 63928390895 150 MG Orally Active 1 tablet one tab a week today and december repeat one tab in 1 week if no improvement Amlodipine ND 40669753507 10 Orally Once Active 1 tablet Besylate a day Ventolin HFA [facility] 78184919578 108 (90 Base) Active 2 puffs as MCG/ACT needed Inhalation every 6 hrs Protonix [facility] 02925029720 40 MG Active 1 TAB(S) ONCE A DAY ORALLY Nystatin [facility] 53241962112 278867 UNIT/GM Active APPLY TO AFFTED AREA TWICE A DAY Cetirizine HCl [facility] 15651937730 10 MG Orally February Active 1 tablet Once a day 2017 Omeprazole ND 92956228644 40 Orally Once Active 1 capsule a day Ripplemead [facility] 49320173200 10-325 MG Active 1 tablet as Orally every 6 needed hrs Victoza [facility] 26993900997 18 MG/3ML February Active as directed Subcutaneous 26, 0.6mg x 3 2017 days, then 1.2mg x 3 days, then 1.8 mg daily Fluconazole [facility] 96918519935 150 MG Orally February Active 1 tablet one tab a week , , and december 20172018 repeat one tab in 1 week if no improvement Saxenda [facility] 91736079338 18 MG/3ML Active not defined Subcutaneous Norvasc [facility] 41726881059 5 MG Active 1 EACH ONCE A DAY ORALLY Xanax [facility] 39685269357 1 MG Orally Active 1 tablet Twice a day Gabapentin ND 56906603428 300 MG Orally Active 1 capsule Twice a day Amlodipine [facility] 22323695363 10 MG Orally Active 1 tablet Besylate Once a day Lipitor [facility] 33446706676 40 MG Orally Active 1 tablet Once a day Amlodipine [facility] 80548555381 5 MG Orally Active 1 tablet Besylate Once a day Clonidine HCl ND 98451409576 0.1 MG Orally Active one tablet Once a day every 8 hours hold if BP less than 150/90 Flomax ND 95099988913 0.4 MG Orally Active 1 capsule Once a day Augmentin [facility] 02942714225 875-125 MG Jun 24, Active 1 tablet Orally every 2017 12 hrs Triamcinolone ND 79916863735 0.1 % Aug 20, Active 1 application Acetonide Externally 2019 to affected Twice a day area Losartan ND 74658343164 100 MG Orally Active 1 tablet Potassium Once a day Metformin HCl ND 01966548638 1000 MG Orally Mar 05, Active 1 tablet with twice a day 2018 a meal Losartan ND 87605282298 100 Orally Active 1 tablet Potassium Once a day Augmentin [facility] 65160362794 875-125 MG Aug 20, Active 1 tablet Orally every 2018 12 hrs Tradjenta [facility] 30146612213 5 Orally Once Active 1 tablet a day Tamiflu [facility] 34250381609 75 MG Orally Sep 05, Active 1 capsule Twice a day 2017 Tamiflu [facility] 77444345317 75 MG Orally Active 1 capsule Twice a day Omeprazole ND 88317079480 40 MG Orally Active 1 capsule Once a day Augmentin [facility] 09281997784 500-125 MG Active not defined Orally Zithromax [place] ND 88815997155 250 MG Orally October Active 2 tablets on Once a day , 25, the first 20182018, then 1 tablet daily for 4 days Cheratussin AC [facility] 28304903329 100-10 MG/5ML Active 5 ml Orally every 6 hrs Augmentin [facility] 65724464914 875-125 MG Active 1 tablet Orally every 12 hrs Combivent [facility] 52221093958 20-100 MCG/ACT Active 1 puff Respimat Inhalation Four times a day Clonidine HCl [facility] 09054969351 0.1 MG Orally Active one tablet Once a day every 8 hours hold if BP less than 150/90 Macrobid [facility] 76796398984 100 MG Orally Active 1 capsule every 12 hrs with food VESIcare [facility] 68009011532 10 MG Orally Active 1 tablet Once a day Metoprolol [facility] 30292881946 25 MG Orally Active 1 tablet with Tartrate once a day food Results No Known Results Summary Purpose [employer] Submission
--- OUTSIDE RECORDS SUMMARY | 2018-12-19 09:12 | XMS REPORT ---
:1960 Author Organization [employer] Care Team Providers Name Role Phone Erika Eaton Provider Role Unavailable Allergies, Adverse Reactions, Alerts Substance Reaction Event Type Ibuprofen Info Not Available Drug Allergy Problems Problem Type Condition Code Onset Dates Condition Status Problem Unsteady gait R26.81 Active Problem Osteoarthritis of multiple joints M15.9 Active Problem Diabetes E11.9 Active Problem Rheumatoid arthritis M06.9 Active Assessment Stress incontinence N39.3 Active Assessment Kidney stone N20.0 Active Problem Benign essential HTN I10 Active Problem Back pain M54.9 Active Problem Bronchitis J40 Active Problem Morbid obesity E66.01 Active Problem Pain in left shoulder M25.512 Active Problem Other chronic pain G89.29 Active Problem History of fall Z91.81 Active Problem Uncontrolled type 2 diabetes E11.65 Active mellitus without complication, without long-term current use of insulin Problem Chest pain, unspecified type R07.9 Active Problem Acute pain of left shoulder M25.512 Active Problem 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 Problem Obstructive sleep apnea G47.33 Active Problem Daytime somnolence R40.0 Active Problem Seasonal allergies J30.2 Active Problem Kidney stone N20.0 Active Problem Gastroesophageal reflux disease K21.0 Active with esophagitis Problem Scabies B86 Active Problem Influenza-like illness R69 Active Problem Stress incontinence N39.3 Active Problem Arthritis M19.90 Active Problem Chills with fever R50.9 Active Problem Primary osteoarthritis of knee, M17.10 Active unspecified laterality Problem Nephrolithiasis N20.0 Active Problem Neuropathy G62.9 Active Problem Anxiety F41.9 Active Problem Type 2 diabetes, controlled, with E11.40 Active neuropathy Problem Vitamin D deficiency E55.9 Active Problem Screening for malignant neoplasm of Z12.11 Active colon Problem Incontinence R32 Active Problem Primary osteoarthritis of both M17.0 Active knees Problem Obesity due to excess calories E66.09 Active Problem Abnormal urine odor R82.90 Active Problem DDD (degenerative disc disease), M51.37 Active lumbosacral Problem Controlled type 2 diabetes mellitus E11.9 Active without complication, without long-term current use of insulin Problem Candidiasis of vagina B37.3 Active Problem Itching with irritation L29.9 Active Problem Encounter for screening for Z12.31 Active malignant neoplasm of breast Problem Acute vaginitis N76.0 Active Problem Osteoarthritis of knee, unspecified M17.10 Active laterality, unspecified osteoarthritis type Problem Other specified bacterial agents as B96.89 Active the cause of diseases classified elsewhere Problem Hyperglycemia R73.9 Active Problem Mixed hyperlipidemia E78.2 Active Medications Medication Code Code Instructions Start End Status Dosage System Date Date Omeprazole [facility] 00545576595 40 Orally Once Active 1 capsule a day Lipitor ND 99416854414 40 MG Orally Active 1 tablet Once a day Losartan [facility] 62974089261 100 Orally Once Active 1 tablet Potassium a day Triamcinolone [facility] 06214911139 0.1 % Aug 20, Active 1 application Acetonide Externally 2018 to affected Twice a day area Tamiflu [facility] 20063925354 75 MG Orally Active 1 capsule Twice a day [place] [facility] 02147909142 10-325 MG Active 1 tablet as Orally every 6 needed hrs Tamiflu [facility] 42334550987 75 MG Orally Sep 05, Active 1 capsule Twice a day 2017 Metoprolol [facility] 75117907820 25 MG Orally Active 1 tablet with Tartrate once a day food Augmentin [facility] 08531848941 500-125 MG Active not defined Orally Tradjenta [facility] 57634779952 5 Orally Once a Active 1 tablet day Augmentin [facility] 42807111772 875-125 MG Aug 20, Active 1 tablet Orally every 12 2019 hrs Flomax [facility] 78101834845 0.4 MG Orally Active 1 capsule Once a day Nystatin [facility] 65812636144 430171 UNIT/GM Active APPLY TO AFFTED AREA TWICE A DAY Amlodipine [facility] 89529940145 10 Orally Once Active 1 tablet Besylate a day Clonidine HCl [facility] 88521953461 0.1 MG Orally Active one tablet Once a day every 8 hours hold if BP less than 150/90 Fluconazole [facility] 77271612595 150 MG Orally Active 1 tablet one tab a week today and may repeat one tab in 1 week if no improvement Norvasc [facility] 27174271106 5 MG Active 1 EACH ONCE A DAY ORALLY Protonix [facility] 43189378336 40 MG Active 1 TAB(S) ONCE A DAY ORALLY VESIcare [facility] 45887754455 10 MG Orally Oct Active 1 tablet Once a day 2018 Omeprazole ND 75477168736 40 MG Orally Active 1 capsule Once a day Augmentin [facility] 25269798793 875-125 MG Active 1 tablet Orally every 12 hrs Gabapentin ND 63702837182 300 MG Orally Active 1 capsule Twice a day FreeStyle Jonatan [facility] 06556586708 - [place] daily November Active as directed 14 Day Sensor 2018 Clonidine HCl [facility] 87927357162 0.1 MG Orally Active one tablet Once a day every 8 hours hold if BP less than 150/90 Saxenda ND 98036386282 18 MG/3ML Active not defined Subcutaneous Cheratussin AC [facility] 44031880338 100-10 MG/5ML Active 5 ml Orally every 6 hrs Augmentin [facility] 14867269073 875-125 MG Jun 24, Active 1 tablet Orally every 12 2018 hrs Amlodipine [facility] 43526477133 10 MG Orally Active 1 tablet Besylate Once a day Flonase [facility] 09688707496 50 MCG/ACT November Active 2 spray in Nasally Once a , each nostril 2018 Ventolin HFA [facility] 64487927003 108 (90 Base) Active 2 puffs as MCG/ACT needed Inhalation every 6 hrs FreeStyle Jonatan [facility] 95730585318 - daily November Active as directed 14 Day [place] 2018 Cetirizine HCl ND 57292061997 10 MG Orally Active 1 tablet Once a day Metformin HCl ND 56807429308 1000 MG Orally Mar 05, Active 1 tablet with twice a day 2018 a meal Metoprolol ND 16780742421 25 Orally once Active 1 tablet with Tartrate a day food Losartan ND 97897731075 100 MG Orally Active 1 tablet Potassium Once a day Combivent ND 18134428215 20-100 MCG/ACT Active 1 puff Respimat Inhalation Four times a day Silvadene [facility] 64076699620 1 % Externally November Active 1 application twice a day , to affected 2019 area Xanax [facility] 42358752381 1 MG Orally Active 1 tablet Twice a day Amlodipine ND 51233867768 5 MG Orally Active 1 tablet Besylate Once a day Tradjenta ND 90253150230 5 MG Orally Active 1 tablet Once a day Victoza [facility] 20249579795 18 MG/3ML February Active as directed Subcutaneous 26, 0.6mg x 3 days, 2017 then 1.2mg x 3 days, then 1.8 mg daily Macrobid [facility] 54625414189 100 MG Orally Active 1 capsule every 12 hrs with food Results No Known Results Summary Purpose [employer]Works Submission
--- OUTSIDE RECORDS SUMMARY | 2018-12-19 09:12 | XMS REPORT ---
:1960 Author Organization [employer] Care Team Providers Name Role Phone Hong, Sia Provider Role Unavailable Allergies, Adverse Reactions, Alerts Substance Reaction Event Type Ibuprofen Info Not Available Drug Allergy Problems Problem Type Condition Code Onset Dates Condition Status Problem Unsteady gait R26.81 Active Problem Osteoarthritis of multiple joints M15.9 Active Problem Diabetes E11.9 Active Problem Rheumatoid arthritis M06.9 Active Problem Benign essential HTN I10 Active Problem Back pain M54.9 Active Problem Morbid obesity E66.01 Active Problem Pain in left shoulder M25.512 Active Problem Other chronic pain G89.29 Active Problem History of fall Z91.81 Active Problem Acute pain of left shoulder M25.512 Active Problem Gastroesophageal reflux disease K21.0 Active with esophagitis Problem Scabies B86 Active Problem Arthritis M19.90 Active Problem Primary osteoarthritis of both M17.0 Active knees Problem Abnormal urine odor R82.90 Active Problem Controlled type 2 diabetes E11.9 Active mellitus without complication, without long-term current use of insulin Problem Itching with irritation L29.9 Active Problem Acute vaginitis N76.0 Active Problem Other specified bacterial agents B96.89 Active as the cause of diseases classified elsewhere Problem Hyperglycemia R73.9 Active Problem Mixed hyperlipidemia E78.2 Active Assessment Screening for malignant neoplasm Z12.11 Active of colon Assessment Mixed hyperlipidemia E78.2 Active Assessment Tachycardia R00.0 Active Assessment Anxiety F41.9 Active Assessment Nephrolithiasis N20.0 Active Assessment Neuropathy G62.9 Active Assessment Superficial burn of left thigh, T24.112A Active initial encounter Assessment Obstructive sleep apnea G47.33 Active Assessment Primary osteoarthritis of knee, M17.10 Active unspecified laterality Assessment Benign essential HTN I10 Active Assessment Type 2 diabetes, controlled, with E11.40 Active neuropathy Problem Bronchitis J40 Active Problem Uncontrolled type 2 diabetes E11.65 Active mellitus without complication, without long-term current use of insulin Assessment Seasonal allergies J30.2 Active Problem Chest pain, unspecified type R07.9 Active Problem 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 Problem Obstructive sleep apnea G47.33 Active Problem Daytime somnolence R40.0 Active Problem Seasonal allergies J30.2 Active Problem Kidney stone N20.0 Active Problem Stress incontinence N39.3 Active Problem Influenza-like illness R69 Active Problem Primary osteoarthritis of knee, M17.10 Active unspecified laterality Problem Chills with fever R50.9 Active Problem Neuropathy G62.9 Active Problem Nephrolithiasis N20.0 Active Problem Type 2 diabetes, controlled, with E11.40 Active neuropathy Problem Anxiety F41.9 Active Problem Screening for malignant neoplasm Z12.11 Active of colon Problem Vitamin D deficiency E55.9 Active Problem Incontinence R32 Active Problem Obesity due to excess calories E66.09 Active Problem DDD (degenerative disc disease), M51.37 Active lumbosacral Problem Candidiasis of vagina B37.3 Active Problem Encounter for screening for Z12.31 Active malignant neoplasm of breast Problem Osteoarthritis of knee, M17.10 Active unspecified laterality, unspecified osteoarthritis type Medications Medication Code Code Instructions Start End Status Dosage System Date Date Tamiflu [facility] 83726201562 75 MG Orally Active 1 capsule Twice a day Augmentin [facility] 57927310013 500-125 MG Active not defined Orally Saxenda [facility] 58815110152 18 MG/3ML Active not defined Subcutaneous Amlodipine ND 15723615167 5 MG Orally Active 1 tablet Besylate Once a day Cetirizine HCl ND 42089032184 10 MG Orally Active 1 tablet Once a day Silvadene [facility] 59643367315 1 % Externally November Active 1 application twice a day , to affected 2018 area Amlodipine [facility] 70765450927 10 MG Orally Active 1 tablet Besylate Once a day Triamcinolone ND 91588795482 0.1 % Aug 20, Active 1 application Acetonide Externally 2019 to affected Twice a day area Gabapentin [facility] 19925446329 300 MG Orally Active 1 capsule Twice a day VESIcare [facility] 63602859823 10 MG Orally Active 1 tablet Once a day Fluconazole ND 05182273596 150 MG Orally Active 1 tablet one tab a week today and may repeat one tab in 1 week if no improvement Omeprazole ND 54248430509 40 Orally Once Active 1 capsule a day Cheratussin AC [facility] 28187639268 100-10 MG/5ML Active 5 ml Orally every 6 hrs Protonix [facility] 70966829054 40 MG Active 1 TAB(S) ONCE A DAY ORALLY Metoprolol ND 66576658113 25 MG Orally Active 1 tablet with Tartrate once a day food Xanax [facility] 49189736493 1 MG Orally Active 1 tablet Twice a day Losartan ND 83800148863 100 MG Orally Active 1 tablet Potassium Once a day Flomax ND 14028477268 0.4 MG Orally Active 1 capsule Once a day Losartan ND 33228694191 100 Orally Once Active 1 tablet Potassium a day Macrobid [facility] 73696493215 100 MG Orally Active 1 capsule every 12 hrs with food [place] [facility] 28616944527 10-325 MG Active 1 tablet as Orally every 6 needed hrs Omeprazole ND 07288378602 40 MG Orally Active 1 capsule Once a day Metformin HCl ND 94757123060 1000 MG Orally Mar 05, Active 1 tablet with twice a day 2018 a meal Augmentin [facility] 31811659962 875-125 MG Jun 24, Active 1 tablet Orally every 12 2017 hrs Combivent [facility] 30099960246 20-100 MCG/ACT Active 1 puff Respimat Inhalation Four times a day Clonidine HCl ND 30381944336 0.1 MG Orally Active one tablet Once a day every 8 hours hold if BP less than 150/90 Tradjenta [facility] 27956411595 5 MG Orally Active 1 tablet Once a day Augmentin [facility] 39925530561 875-125 MG Active 1 tablet Orally every 12 hrs Victoza [facility] 92813092263 18 MG/3ML February Active as directed Subcutaneous 26, 0.6mg x 3 days, 2017 then 1.2mg x 3 days, then 1.8 mg daily FreeStyle Jonatan [facility] 09492191271 - daily November Active as directed 14 Day [place] 2018 Lipitor ND 03619896407 40 MG Orally Active 1 tablet Once a day Amlodipine ND 94532645838 10 Orally Once Active 1 tablet Besylate a day Norvasc [facility] 85483470234 5 MG Active 1 EACH ONCE A DAY ORALLY Metoprolol ND 31201408214 25 Orally once Active 1 tablet with Tartrate a day food Tradjenta [facility] 23189313957 5 Orally Once a Active 1 tablet day Nystatin [facility] 47441869160 998293 UNIT/GM Active APPLY TO AFFTED AREA TWICE A DAY Ventolin HFA ND 51283141862 108 (90 Base) Active 2 puffs as MCG/ACT needed Inhalation every 6 hrs Augmentin ND 41784491763 875-125 MG Aug 20, Active 1 tablet Orally every 12 2019 hrs Flonase ND 02679431028 50 MCG/ACT November Active 2 spray in Nasally Once a 11, each nostril day 2018 Tamiflu ND 42167017462 75 MG Orally Sep 05, Active 1 capsule Twice a day 2017 FreeStyle Jonatan [facility] 24747041766 - [place] daily November Active as directed 14 Day Sensor 2018 Clonidine HCl [facility] 86517924890 0.1 MG Orally Active one tablet Once a day every 8 hours hold if BP less than 150/90 Results No Known Results Summary Purpose eClinicalWorks Submission
--- OUTSIDE RECORDS SUMMARY | 2018-12-19 09:12 | XMS REPORT ---
:1960 Author Organization [employer] Care Team Providers Name Role Phone Erika Eaton Provider Role Unavailable Allergies, Adverse Reactions, Alerts Substance Reaction Event Type Ibuprofen Info Not Available Drug Allergy Problems Problem Type Condition Code Onset Dates Condition Status Problem Rheumatoid arthritis M06.9 Active Problem Osteoarthritis of knee, unspecified M17.10 Active laterality, unspecified osteoarthritis type Problem Incontinence R32 Active Problem Candidiasis of vagina B37.3 Active Problem DDD (degenerative disc disease), M51.37 Active lumbosacral Problem Unsteady gait R26.81 Active Problem Diabetes E11.9 Active Problem Benign essential HTN I10 Active Problem Back pain M54.9 Active Problem Morbid obesity E66.01 Active Problem Hyperglycemia R73.9 Active Problem Other specified bacterial agents as B96.89 Active the cause of diseases classified elsewhere Problem Other chronic pain G89.29 Active Problem Acute vaginitis N76.0 Active Problem Chest pain, unspecified type R07.9 Active Problem Uncontrolled type 2 diabetes E11.65 Active mellitus without complication, without long-term current use of insulin Problem Kidney stone N20.0 Active Problem Neuropathy G62.9 Active Problem Acute pain of left shoulder M25.512 Active Problem History of fall Z91.81 Active Problem Anxiety F41.9 Active Problem Seasonal allergies J30.2 Active Problem Pain in left shoulder M25.512 Active Problem Vitamin D deficiency E55.9 Active Problem Daytime somnolence R40.0 Active Problem Bronchitis J40 Active Problem Obstructive sleep apnea G47.33 Active Problem Primary osteoarthritis of knee, M17.10 Active unspecified laterality Assessment Kidney stone N20.0 Active Problem 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 Problem Osteoarthritis of multiple joints M15.9 Active Problem Gastroesophageal reflux disease K21.0 Active with esophagitis Problem Obesity due to excess calories E66.09 Active Problem Controlled type 2 diabetes mellitus E11.9 Active without complication, without long-term current use of insulin Problem Influenza-like illness R69 Active Problem Arthritis M19.90 Active Problem Encounter for screening for Z12.31 Active malignant neoplasm of breast Problem Scabies B86 Active Problem Nephrolithiasis N20.0 Active Problem Primary osteoarthritis of both M17.0 Active knees Problem Chills with fever R50.9 Active Problem Mixed hyperlipidemia E78.2 Active Problem Itching with irritation L29.9 Active Problem Abnormal urine odor R82.90 Active Medications Medication Code Code Instructions Start End Status Dosage System Date Date [facility] [place] 82052954629 10-325 MG Active 1 tablet as Orally every 6 needed hrs Tamiflu [facility] 79308373469 75 MG Orally Active 1 capsule Twice a day Cheratussin AC [facility] 22764215284 100-10 MG/5ML Active 5 ml Orally every 6 hrs Metoprolol [facility] 12737879777 25 Orally once Active 1 tablet with Tartrate a day food Gabapentin [facility] 48252587153 300 MG Orally Active 1 capsule Twice a day Lipitor [facility] 63719964177 40 MG Orally Active 1 tablet Once a day Clonidine HCl [facility] 64711207025 0.1 MG Orally Active one tablet Once a day every 8 hours hold if BP less than 150/90 [address]ro[address] [facility] 79334919476 100 MG Orally Active 1 capsule every 12 hrs with food Fluconazole [facility] 16814223301 150 MG Orally Active 1 tablet one tab a week today and may repeat one tab in 1 week if no improvement Zithromax [place] [facility] 58190658983 250 MG Orally October Active 2 tablets on Once a day , the first 20182018, then 1 tablet daily for 4 days Omeprazole [facility] 00664464182 40 Orally Once Active 1 capsule a day Amlodipine [facility] 60929391070 5 MG Orally Active 1 tablet Besylate Once a day Omeprazole [facility] 66190213709 40 MG Orally Active 1 capsule Once a day Tradjenta [facility] 26768938585 5 Orally Once Active 1 tablet a day Losartan [facility] 03262492292 100 Orally Active 1 tablet Potassium Once a day Ventolin HFA [facility] 00065167713 108 (90 Base) Active 2 puffs as MCG/ACT needed Inhalation every 6 hrs Tradjenta [facility] 56452817266 5 MG Orally Active 1 tablet Once a day Losartan [facility] 89428260919 100 MG Orally Active 1 tablet Potassium Once a day Fluconazole [facility] 15952590868 150 MG Orally February Active 1 tablet one tab a week , 21, and december 20172018 repeat one tab in 1 week if no improvement Cetirizine HCl ND 13514858125 10 MG Orally February Active 1 tablet Once a day [address] [facility] 74901887898 40 MG Active 1 TAB(S) ONCE A DAY ORALLY Metoprolol ND 73059401700 25 MG Orally Active 1 tablet with Tartrate once a day food Norvasc [facility] 31474715263 5 MG Active 1 EACH ONCE A DAY ORALLY Metformin HCl ND 83916088089 1000 MG Orally Mar 05, Active 1 tablet with twice a day 2018 a meal Nystatin [facility] 89439708962 875032 UNIT/GM Active APPLY TO AFFTED AREA TWICE A DAY Amlodipine [facility] 32754775594 10 MG Orally Active 1 tablet Besylate Once a day Tamiflu ND 14875826187 75 MG Orally Sep 05, Active 1 capsule Twice a day 2017 Xanax ND 56992188055 1 MG Orally Active 1 tablet Twice a day Triamcinolone [facility] 06723194158 0.1 % Aug 20, Active 1 application Acetonide Externally 2018 to affected Twice a day area Combivent [facility] 35827791149 20-100 MCG/ACT Active 1 puff Respimat Inhalation Four times a day Clonidine HCl [facility] 13782470641 0.1 MG Orally Active one tablet Once a day every 8 hours hold if BP less than 150/[address] [facility] 38653544946 875-125 MG Jun 24, Active 1 tablet Orally every 2017 12 hrs Saxenda ND 26698916457 18 MG/3ML Active not defined Subcutaneous Augmentin [facility] 25257261411 500-125 MG Active not defined Orally Flomax [facility] 05727199750 0.4 MG Orally Active 1 capsule Once a day VESIcare [facility] 96025099182 10 MG Orally Active 1 tablet Once a day Victoza ND 32200651237 18 MG/3ML February Active as directed Subcutaneous , 0.6mg x 3 2017 days, then 1.2mg x 3 days, then 1.8 mg daily Augmentin [facility] 99422485495 875-125 MG Aug 20, Active 1 tablet Orally every 2018 12 hrs Augmentin [facility] 33156014590 875-125 MG Active 1 tablet Orally every 12 hrs Amlodipine ND 97792617150 10 Orally Once Active 1 tablet Besylate a day Results Name Result Date Reference Range Unit Abnormality Flag URINALYSIS AUTO W/O SCOPE (87701) ----NIT neg 20181023 ----URO 0.2 20181023 ----PROTEIN 1+ 20181023 ----pH 5.5 20181023 ----BLO neg 20181023 ----GLUCOSE 2+ 20181023 ----YESENIA 1+ 20181023 ----BILIRUBIN neg 20181023 ----KETONES 1+ 20181023 ----SPECIFIC GRAVITY 1.020 20181023 PVR ----PVR 0 20181023 Summary Purpose eClinicalWorks Submission
--- OUTSIDE RECORDS SUMMARY | 2018-12-19 09:13 | XMS REPORT ---
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 Problem Obstructive [...] Start End Status Dosage System Date Date Cheratussin AC [facility] 65556326414 100-10 MG/5ML Active 5 ml Orally every 6 hrs VESIcare [facility] 42805234815 10 MG Orally Active 1 tablet Once a day Macrobid [facility] 64278005072 100 MG Orally Active 1 capsule every 12 hrs with food Ventolin HFA [facility] 39136699853 108 (90 Base) Active 2 puffs as MCG/ACT needed Inhalation every 6 hrs Clonidine HCl [facility] 62518238826 0.1 MG Orally Active one tablet Once a day every 8 hours hold if BP less than 150/90 Gabapentin [facility] 05130810960 300 MG Orally Active 1 capsule Twice a day Flonase [facility] 70601699411 50 MCG/ACT November Active 2 spray in Nasally Once a , each nostril 2018 Metoprolol [facility] 01888984784 25 Orally once Active 1 tablet with Tartrate a day food Silvadene [facility] 45087735260 1 % Externally November Active 1 application twice a day , to affected 2018 area Saxenda [facility] 08055997942 18 MG/3ML Active not defined Subcutaneous Tradjenta [facility] 04649194852 5 MG Orally Active 1 tablet Once a day Combivent [facility] 63673661014 20-100 MCG/ACT Active 1 puff Respimat Inhalation Four times a day Nystatin [facility] 87858011508 135930 UNIT/GM Active APPLY TO AFFTED AREA TWICE A DAY Protonix [facility] 07702275779 40 MG Active 1 TAB(S) ONCE A DAY ORALLY Amlodipine [facility] 51072204121 10 MG Orally Active 1 tablet Besylate Once a day Metoprolol [facility] 31439416085 25 MG Orally Active 1 tablet with Tartrate once a day food Cetirizine HCl [facility] 21709851066 10 MG Orally Active 1 tablet Once a day FreeStyle Jonatan [facility] 96053420326 - daily November Active as directed 14 Day Eustis 2018 Lipitor ND 18739344022 40 MG Orally Active 1 tablet Once a day Amlodipine ND 25981729451 5 MG Orally Active 1 tablet Besylate Once a day [place] [facility] 63018560612 10-325 MG Active 1 tablet as Orally every 6 needed hrs Augmentin ND 01793510185 875-125 MG Jun 24, Active 1 tablet Orally every 12 2018 hrs Losartan ND 76967230046 100 Orally Once Active 1 tablet Potassium a day Augmentin [facility] 50437023674 875-125 MG Aug 20, Active 1 tablet Orally every 12 2018 hrs FreeStyle Jonatan [facility] 29856281175 - [place] daily November Active as directed 14 Day Sensor 2018 Metformin HCl ND 57152163423 1000 MG Orally Mar 05, Active 1 tablet with twice a day 2018 a meal Fluconazole ND 41448980379 150 MG Orally Active 1 tablet one tab a week today and may repeat one tab in 1 week if no improvement Triamcinolone [facility] 85700007082 0.1 % Aug 20, Active 1 application Acetonide Externally 2019 to affected Twice a day area Amlodipine ND 60980400206 10 Orally Once Active 1 tablet Besylate a day Tamiflu ND 67706625006 75 MG Orally Sep 05, Active 1 capsule Twice a day 2017 Omeprazole ND 04444999560 40 MG Orally Active 1 capsule Once a day Tradjenta ND 63862453601 5 Orally Once a Active 1 tablet day Norvasc [facility] 75153073289 5 MG Active 1 EACH ONCE A DAY ORALLY Tamiflu [facility] 05578158522 75 MG Orally Active 1 capsule Twice a day Augmentin [facility] 16765006764 875-125 MG Active 1 tablet Orally every 12 hrs Flomax ND 90570582092 0.4 MG Orally Active 1 capsule Once a day Victoza ND 62497061959 18 MG/3ML February Active as directed Subcutaneous 26, 0.6mg x 3 days, 2018 then 1.2mg x 3 days, then 1.8 mg daily Omeprazole ND 86621615230 40 Orally Once Active 1 capsule a day Clonidine HCl ND 58571759662 0.1 MG Orally Active one tablet Once a day every 8 hours hold if BP less than 150/90 Augmentin [facility] 85504923468 500-125 MG Active not defined Orally Xanax [facility] 24416254969 1 MG Orally Active 1 tablet Twice a day Losartan [facility] 41709956781 100 MG Orally Active 1 tablet Potassium Once a day Results Name Result Date Reference Range Unit Abnormality Flag URINALYSIS AUTO W/O SCOPE (21407) ----NIT neg [id number] ----URO 0.2 [id number] ----PROTEIN neg [id number] ----pH 5.5 [id number] ----BLO neg [id number] ----GLUCOSE 2+ [id number] ----YESENIA neg [id number] ----BILIRUBIN neg [id number] ----KETONES neg [id number] ----SPECIFIC GRAVITY 1.025 [id number] Summary Purpose [employer] Submission
[2018-12-19] MEDS ORDERED: NA CHLORIDE 0.9% 1,000 ML ONE (09:39)
[2018-12-19] MEDS ORDERED: PROPOFOL 200 MG/20 ML VIAL IV ONE ×2 (09:55→09:57)
[2018-12-19] MEDS ORDERED: LIDOCAINE 1% MPF 5 ML VIAL ONE (09:55)
--- NOTE | 2018-12-19 10:19 | ENDO RPT ---
[address], [address] COLONOSCOPY PROCEDURE REPORT EXAM DATE: 12/19/2018 PATIENT NAME: Walt Nguyễn MR #: [id number] BIRTHDATE: 1960 ATTENDING: Jerson Chow DR STATUS: outpatient OIL CHANGER: Anna Duque and Yahaira Lomeli RN INDICATIONS: The patient is a 58 yr old Female here for a colonoscopy due to family history of colon polyps and colon cancer screening PROCEDURE PERFORMED: Colonoscopy with biopsy MEDICATIONS: Per Anesthesia. ESTIMATED BLOOD LOSS: None CONSENT: The patient understands the risks and benefits of the procedure and understands that these risks include, but are not limited to: sedation, allergic reaction, infection, perforation and/or bleeding. Alternative means of evaluation and treatment include, among others: physical exam, x-rays, and/or surgical intervention. The patient elects to proceed with this endoscopic procedure. DESCRIPTION OF PROCEDURE: During intra-op preparation period all mechanical medical equipment was checked for proper function. Hand hygiene and appropriate measures for infection prevention was taken. Procedure, possible complications, alternatives including, but not limited to possibility of bleeding, perforation, tear, infection, sepsis, need for surgery, need for blood transfusion, were explained to the patient. After the risks, benefits and alternatives of the procedure were thoroughly explained, Informed consent was verified, confirmed and timeout was successfully executed by the treatment team. The patient was placed in the left lateral position. A digital rectal exam was performed and revealed internal hemorrhoids, A digital rectal exam was performed and revealed external hemorrhoids, and A digital rectal exam was performed and revealed several skin tags. After appropriate level of anesthesia, the scope was passed. The [id number] ([id number]) endoscope was introduced through the anus and advanced to the cecum, which was identified by both the appendix and ileocecal valve. The quality of the prep was poor. The instrument was then slowly withdrawn as the colon was fully examined. Scope withdrawal time was 10 minutes. COLON FINDINGS: Multiple small non-bleeding, round and punctate erosions and shallow ulcers were found throughout the entire examined colon, the rectum was spared however of any erosions or ulceration. Biopsies were taken at the center of the ulcers. Mild diverticulosis was noted in the sigmoid colon. No bleeding was noted from the diverticulosis. Moderate sized internal and external hemorrhoids were found. Retroflexed views revealed no abnormalities. The scope was then completely withdrawn from the patient and the procedure terminated. ADVERSE EVENTS: There were no complications. IMPRESSIONS: 1. Multiple small ulcers were found throughout the entire examined colon; biopsies were taken 2. Mild diverticulosis was noted in the sigmoid colon 3. Moderate sized internal and external hemorrhoids RECOMMENDATIONS: 1. avoid NSAIDS for 2 weeks 2. await biopsy results 3. follow-up: office 2 week(s) 4. Monitor for any evidence of rectal bleeding. 5. hemorrhoidal hygiene 6. yearly hemoquant 7. increase dietary water 8. low fiber / diverticular diet RECALL: for Colonoscopy, pending biopsy results. Jerson Chow DR eSigned: Jerson Chow DR 12/19/2018 10:19 AM cc: CPT CODES: ICD9 CODES: PATIENT NAME: Walt Nguyễn MR#: [id number]
== END 2018-12-19 11:30 | disposition home health service (06) ==
LOC: OR 09:01
PROVIDERS: ATTEND Surgery
PROC: 0DBH8ZX Excision of Cecum, Via Natural or Artificial Opening Endoscopic, Diagnostic (ICD-10-PCS; principal; 2018-12-19 10:00)
DX: Z12.11 Encounter for screening for malignant neoplasm of colon (principal); K52.9 Noninfective gastroenteritis and colitis, unspecified; K63.3 Ulcer of intestine; K64.8 Other hemorrhoids; K64.4 Residual hemorrhoidal skin tags; K57.30 Diverticulosis of large intestine without perforation or abscess without bleeding; E11.9 Type 2 diabetes mellitus without complications; I10 Essential (primary) hypertension; M15.9 Polyosteoarthritis, unspecified; M51.37 Other intervertebral disc degeneration, lumbosacral region; M06.9 Rheumatoid arthritis, unspecified; Z79.899 Other long term (current) drug therapy
CPT/HCPCS: 45380; 82962 ×2; 88305; J2704 ×2; J7030

== ENCOUNTER 2019-01-15 06:25 | Day surgery (SDC) | payer OTHER ==
[2019-01-13 14:51] LABS: Absolute Lymphocytes (CBC) 2.7 K/uL (0.7-4.9); Absolute Monocytes 0.7 K/uL (0.1-1.3); Absolute Neutrophil 8.1 K/uL (1.8-8.0); Basophils % 0.7 % (0-1.3); Hematocrit 42.1 % (36.0-45.0); Lymphocytes % 23.2 % (15.3-44.8); MPV 10.1 fL (7.6-11.3); RBC Red Blood Cell Count 4.79 M/uL (3.86-4.86)
[2019-01-13 14:56] LABS: BUN Blood Urea Nitrogen 20 mg/dL (7-18); Bicarbonate 26 mmol/L (21-32); Glucose Level 275 mg/dL (74-106); Potassium 3.6 mmol/L (3.5-5.1); Sodium Level 141 mmol/L (136-145)
[2019-01-13 15:01] LABS: Protime INR 0.99
--- NOTE | 2019-01-13 15:17 | RAD REPORT ---
EXAM DESCRIPTION: RAD - Chest Pa And Lat (2 Views) - 01/13/2019 2:36 pm CLINICAL HISTORY: Preop chest, pending cardiac catheterization COMPARISON: None. TECHNIQUE: PA and lateral views of the chest were obtained. FINDINGS: The lungs are clear. Heart size is normal and central vasculature is within normal limit s. No pleural effusion or pneumothorax seen. No acute bony finding noted. No aortic abnormality. IMPRESSION: No acute cardiopulmonary process.
--- OUTSIDE RECORDS SUMMARY | 2019-01-15 06:30 | XMS REPORT | Continuity of Care Document ---
:1960 Author Organization Interface Problems Problem Status Onset Classification Date Comments Source Date Reported FLU LIKE SYMPTOMS Active 018 [place] Discharge Diagnosis: 12/20/2016 Chest pain, 017 [place] unspecified Discharge Diagnosis: 12/20/2016 Viral infection, 017 [facility] unspecified CHEST PAIN Active [place] 017 [place],[facility] M54.12 - Active [facility] "RADICULOPATHY, 016 [facility] CERVICAL REGION CHEST PAIN, ARMS Active [place] Final: Radiculopathy, 11/25/2015 [facility] cervical [facility] Final: Radiculopathy, 11/25/2015 [facility] lumbar region [facility] Chest pain Resolved Problem 12/20/2016 [facility], [facility] Diabetes Resolved Problem 12/20/2016 [facility] FH: Resolved Problem 12/20/2016 [facility] Hypercholesterolemia [facility] Acid reflux Resolved Problem 12/20/2016 [facility] History of stroke Resolved Problem 12/20/2016 [facility] HTN - Hypertension Resolved Problem 12/20/2016 [facility] Morbid obesity Active Problem 12/20/2016 [facility] Neuropathy Resolved Problem 12/20/2016 [facility] Sleep apnea Resolved Problem 12/20/2016 [facility] Diabetes Resolved Problem 06/18/2016 [facility] Centre FH: Resolved Problem 06/18/2016 [facility] Hypercholesterolemia [facility] History of stroke Resolved Problem 06/18/2016 [facility] HTN - Hypertension Resolved Problem 06/18/2016 [facility] Medications Medication Details Route Status Patient Ordering [...] Weight 113.778, kg, Start date: 06/16/16 9:00:00 STUDY LEAD, Duration: 30 day, Stop date: 07/15/16 9:00:00 CSTNotes: Do not crush or chew. (Same As: Ecotrin) pantoprazole 40 40 mg=1 tab, PO, Active Sugar MG Enteric Daily, # 30 tab, 2015 [place] Coated Tablet 0 Refill(s), [Protonix] Pharmacy: [facility] [id number] Aspirin 81 MG 81 mg, PO, Active Sugar Enteric Coated Daily, # 30 tab, 2016 [place] Tablet 0 Refill(s), Pharmacy: [facility] [id number] amLODIPine 5 mg 5 mg=1 tab, PO, Active Sugar oral tablet Daily, # 30 tab, 2015 [place] 0 Refill(s), Pharmacy: [facility] [id number] Nitroglycerin 0.4 mg, 1 tab, Inactive Sugar 0.4 MG Route: SL, Drug 2015 [place] Sublingual form: TAB, Tablet Q5Min, Dosing Weight 113.778, kg, PRN Chest Pain, Start date: 06/15/16 14:11:00 STUDY LEAD, Duration: 30 day, Stop date: 07/15/16 14:10:00 STUDY LEAD Amlodipine 5 mg, 1 tab, Inactive [place] Route: PO, Drug 2015 [place] form: TAB, Daily, Dosing Weight 113.778, kg, Start date: 06/15/16 12:00:00 STUDY LEAD, Duration: 30 day, Stop date: 07/15/16 9:00:00 CSTNotes: (Same as: Norvasc) GI cocktail 30 ml, Route: Inactive [place] PO, Drug Form: 2016 [place] SUSP, Dosing Weight 113.778, kg, ONCE, Routine, Start date: 06/15/16 10:41:00 STUDY LEAD, Stop date: 06/15/16 10:41:00 CSTNotes: G.I. Cocktail=antacid with simethicone 22.5 mL - lidocaine viscous 7.5 mL Aspirin 325 MG 325 mg, 1 tab, Inactive [place] Enteric Coated Route: PO, Drug 2015 Tablet form: ECTAB, Daily, Dosing Weight 115.909, kg, Start date: 06/15/16 9:00:00 STUDY LEAD, Duration: 30 day, Stop date: 07/14/16 9:00:00 CSTNotes: (Do Not Crush) Do not crush or chew. Acetaminophen 1 tab, PO, Q6H, Active [place] 325 MG / PRN for pain, # 2016 [place] Hydrocodone 24 tab, 0 Bitartrate 10 Refill(s) MG Oral Tablet [[place] [address]] baclofen 20 mg 20 mg=1 tab, [...] 115.909, kg, Q12H, Start date: 06/14/16 21:00:00 STUDY LEAD, Duration: 30 day, Stop date: 07/14/16 9:00:00 CSTNotes: (Same as: BD Posiflush) Insulin, 6 unit, 0.06 mL, No Longer Sugar Aspart, Human Route: SUB-Q, Active 2015 [facility] Drug form: SOLN, TID-Before Meals, Dosing Weight 115.909, kg, PRN Blood Glucose Results, Start date: 06/14/16 18:45:00 STUDY LEAD, Duration: 30 day, Stop date: 07/14/16 18:44:00 [...] Blood Glucose Results, Start date: 06/14/16 18:45:00 STUDY LEAD, Duration: 30 day, Stop date: 07/14/16 18:44:00 STUDY LEAD Dextrose 50% 25 gm, 50 mL, No Longer Sugar Syringe Route: IVP, Drug Active 2015 [place] Form: INJ, Dosing Weight 115.909, kg, PRN, PRN Blood Glucose Results, Start date: 06/14/16 18:45:00 STUDY LEAD, Duration: 30 day, Stop date: 07/14/16 18:44:00 STUDY LEAD Saline Flush 10 ml, Route: No Longer Sugar 0.9% IVP, Drug Form: Active 2015 [place] INJ, Dosing Weight 115.909, kg, PRN, PRN Line Flush, Start date: 06/14/16 18:41:00 STUDY LEAD, Duration: 30 day, Stop date: 07/14/16 18:40:00 CSTNotes: (Same as: BD Posiflush) Nitroglycerin 0.4 mg, 1 tab, No Longer Sugar Route: SL, Drug Active 2015 [place] form: TAB, Q5Min, Dosing Weight 115.909, kg, PRN Chest Pain, Start date: 06/14/16 18:41:00 STUDY LEAD, Duration: 3 doses or times, Stop date: Limited # of timesNotes: (Same as:Nitroquick, Nitrostat) "Do Not Crush" Sublingual tablet Acetaminophen 650 mg, 2 tab, No Longer [place] Route: PO, Drug Active 2015 [place] form: TAB, Q4H, Dosing Weight 115.909, kg, PRN Pain 1-3/Temp > 100.4 F, Start date: 06/14/16 18:38:00 STUDY LEAD, Duration: 30 day, Stop date: 07/14/16 18:37:00 CSTNotes: Do not exceed 4 gm/day. (Same as: Tylenol) Ondansetron 4 mg, 2 mL, No Longer Sugar Route: IVP, Drug Active 2015 [place] form: INJ, Q6H, Dosing Weight 115.909, kg, PRN Nausea & Vomiting, Start date: 06/14/16 18:38:00 STUDY LEAD, Duration: 30 day, Stop date: 07/14/16 18:37:00 CSTNotes: (Same as: Dariela) MEDICATION WASTE Product Size: 4 mg Product Wasted: ___ mg Morphine 2 mg, 1 mL, No Longer [place] Route: IVP, Drug Active 2015 [place] form: INJ, Q4H, Dosing Weight 115.909, kg, PRN Pain Score 7-10, Start date: 06/14/16 18:38:00 STUDY LEAD, Duration: 30 day, Stop date: 07/14/16 18:37:00 CSTNotes: (Same as:MORPhine Sulfate) Morphine 2 mg, 1 mL, Inactive [place] Route: IVP, Drug 2015 [place] form: INJ, ONCE, Dosing Weight 115.909, kg, Priority: STAT, Start date: 06/14/16 16:09:00 STUDY LEAD, Stop date: 06/14/16 16:09:00 CSTNotes: (Same as:MORPhine Sulfate) Nitroglycerin 0.4 mg, 1 tab, No Longer Sugar Route: SL, Drug Active 2015 [place] form: TAB, Q5Min, Dosing Weight 115.909, kg, PRN Chest Pain, Start date: 06/14/16 16:09:00 STUDY LEAD, Duration: 3 doses or times, Stop date: Limited # of timesNotes: (Same as:Nitroquick, Nitrostat) "Do Not Crush" Sublingual tablet Saline Flush 10 mL, Route: No Longer Sugar 0.9% IVP, Drug Form: Active 2015 [place] INJ, Dosing Weight 115.909, kg, PRN, PRN Line Flush, Start date: 06/14/16 16:09:00 STUDY LEAD, Duration: 30 day, Stop date: 07/14/16 16:08:00 CSTNotes: (Same as: BD Posiflush) Aspirin 324 mg, 4 tab, Inactive Sugar Route: PO, Drug 2015 [place] form: CHEWTAB, ONCE, Dosing Weight 115.909, kg, Priority: STAT, Start date: 06/14/16 16:09:00 STUDY LEAD, Stop date: 06/14/16 16:09:00 CSTNotes: Take with food. Allergies, Adverse Reactions, Alerts Substance Category Reaction Severity Reaction Status Date Comments Source type Reported Immunizations Immunization Date Given Site Status Last Updated Comments Source Results Order Name Results Value Reference Date Interpretation Comments Source Range Chest 2 Chest 2 CHEST TWO VIEW 08/29 - views DX views - [facility] INDICATION: Cough and congestion. Patient having difficulty swallowing and breathing. Patient complains of a sore throat since yesterday Read by: Reyes Vail MD Dictated Date/time: 08/29/17 11:56 Electronically Signed by: Reyes Vail MD 08/29/17 11:57 FINAL REPORT COMPARISON: 06/14/2016 chest x-ray FINDINGS: The lungs are clear. The pleura, cardiomediastinal silhouette and bony thorax are normal. IMPRESSION: Negative. END IMPRESSION SL: [id number] CARDIAC BNP <2 pg/mL <=100 12/17 ENZYMES pg/mL /2016 [facility] ELECTROLYT Sodium Lvl 140 meq/L 135 - 145 12/17 ES [facility] ELECTROLYT Potassium 3.6 meq/L 3.5 - 5.1 12/17 ES Lvl [facility] ELECTROLYT Chloride Lvl 105 meq/L 95 - 109 12/17 [facility] ELECTROLYT CO2 26 meq/L 24 - 32 12/17 [facility] ELECTROLYT AGAP 12.6 meq/L 10.0 - 12/17 ES 20.0 [facility] ELECTROLYT Calcium Lvl 8.9 mg/dL 8.5 - 10.5 12/17 ES [facility] ELECTROLYT eGFR 115 12/17 Result Comment: The [...] is not recommended in the following populations: [place] [id number] Individuals with unstable creatinine concentrations, including patients [...] Lvl 160 mg/dL 70 - 99 12/17 [facility] ELECTROLYT BUN 20 mg/dL 7 - 22 12/17 [facility] ELECTROLYT Creatinine 0.61 mg/dL 0.50 - 12/17 ES Lvl 1.40 [facility] CARDIAC Troponin-I null 0.00 - 12/17 ENZYMES 0.40 [facility] CHEM PANEL eGFR 97 12/17 Result Comment: [...] is not recommended in the following populations: [place] [address] Individuals with unstable creatinine concentrations, including patients [...] - 5.1 12/17 Result Lvl /2017 Comment: [facility] Specimen is hemolyzed. Recommend recollect if a more accurate quantificatio n of potassium is desired. SK at 12/16/2016 23:13 CHEM PANEL Sodium Lvl 137 meq/L 135 - 145 12/17 [facility] CHEM PANEL Creatinine 0.78 mg/dL 0.50 - 12/17 MH Lvl 1.40 [facility] CHEM PANEL BUN 19 mg/dL 7 - 22 12/17 [facility] CHEM PANEL Glucose Lvl 144 mg/dL 70 - 99 12/17 [facility] CHEM PANEL CO2 26 meq/L 24 - 32 12/17 [facility] CHEM PANEL AGAP 12.2 meq/L 10.0 - 12/17 MH 20.0 [facility] CHEM PANEL Chloride Lvl 104 meq/L 95 - 109 12/17 [facility] CHEM PANEL Calcium Lvl 9.1 mg/dL 8.5 - 10.5 12/17 [facility] HEMATOLOGY MCV 84.8 fL 80.0 - 12/17 98.0 /2016 [facility] HEMATOLOGY MCH 27.3 pg 27.0 - 12/17 31.0 /2016 [facility] HEMATOLOGY Platelet 211 K/CMM 133 - 450 12/17 [facility] HEMATOLOGY MPV 9.8 fL 7.4 - 10.4 12/17 [facility] HEMATOLOGY MCHC 32.2 g/dL 32.0 - 12/17 36.0 /2016 [facility] HEMATOLOGY RDW 14.2 % 11.5 - 12/17 MH 14.5 [facility] HEMATOLOGY Hgb 12.9 g/dL 12.0 - 12/17 16.0 [facility] HEMATOLOGY Hct 40.1 % 36.0 - 12/17 48.0 /2017 [facility] HEMATOLOGY RBC 4.73 M/CMM 4.20 - 12/17 MH 5.40 /2017 [facility] HEMATOLOGY WBC 11.4 K/CMM 3.7 - 10.4 12/17 [facility] HEMATOLOGY Eosinophils 0.1 K/CMM 0.0 - 0.5 12/17 MH # /2016 [facility] HEMATOLOGY Monocytes # 0.7 K/CMM 0.0 - 0.8 12/17 [facility] HEMATOLOGY Segs-Bands # 6.5 K/CMM 1.5 - 8.1 12/17 [facility] HEMATOLOGY Basophils 0.3 % 0.0 - 1.0 12/17 [facility] HEMATOLOGY Lymphocytes 3.7 K/CMM 1.0 - 5.5 12/17 # /2016 [facility] HEMATOLOGY Eosinophils 0.5 % 0.0 - 4.0 12/17 [facility] HEMATOLOGY Monocytes 6.6 % 2.0 - 12.0 12/17 [facility] HEMATOLOGY Segs 58.8 % 45.0 - 12/17 75.0 [facility] HEMATOLOGY Plt Morph Normal 12/17 [facility] (12/16/16 10:40 PM) HEMATOLOGY Lymphocytes 33.8 % 20.0 - 12/17 40.0 [facility] HEMATOLOGY RBC Morph Normal 12/17 [facility] (12/16/16 10:40 PM) Chest Chest 1view Clinical Indication: Dyspnea - sob cp 12/16 - 1view DX - [facility] Comparison: None Read by: Song Stevenson MD [...] 25 mg/dL 7 - 22 06/15 MH [facility] CHEM PANEL Creatinine 0.72 mg/dL 0.50 - 06/15 [place] Lvl 1.40 [facility] CHEM PANEL Glucose Lvl 146 mg/dL 70 [...] - 1.0 06/14 [place] STOOL Urobilinogen mg/dL [facility] URINE AND UA Ketones Negative Negative 06/14 [place] STOOL mg/dL mg/dL [facility] URINE AND UA Bili Negative Negative 06/14 [place] *NA* (06/14/16 5:36 PM) URINE AND UA Color Light Yellow Yellow 06/14 [place] *NA* (06/14/16 5:36 PM) URINE AND UA Turbidity Slight Clear 06/14 [place] *ABN* (06/14/16 5:36 PM) URINE AND UA Spec Grav 1.029 <=1.030 06/14 [place] STOOL [facility] URINE AND UA Glucose 500 mg/dL Negative 06/14 [place] STOOL mg/dL [facility] URINE AND UA pH 5.0 5.0 - 8.0 06/14 [place] STOOL [facility] URINE AND UA Protein Negative Negative 06/14 [place] STOOL mg/dL mg/dL [facility] VIRAL - Influ A Negative Negative 06/14 [place] SEROLOGY [facility] (06/14/16 5:23 PM) VIRAL - Influ B Negative Negative 06/14 [place] SEROLOGY [facility] (06/14/16 5:23 PM) CARDIAC Total CK 81 unit/L 12 - 191 06/14 [place] ENZYMES [facility] CARDIAC Troponin-I null 0.00 - 06/14 [place] ENZYMES 0.40 [facility] CARDIAC CK MB 0.7 ng/mL 0.5 - 3.6 06/14 [place] ENZYMES [facility] CARDIAC CK MB Index 0.9 0.0 - [...] AND WITH CONTRAST 11/21 OPI lumbar w/ [facility] w/ contrast MRI [place] contrast MRI [...] 11/21 - [facility] cervical cervical /2015 - [facility] w/wo w/ [place] contrast contrast MRI [...] or cord indentation due to the laminectomy. [id number] bilateral foraminal stenosis is present. C7-T1: Unremarkable. [...] Ext Lower LOWER EXTREMITY VENOUS DOPPLER 03/02 [facility] Venous Venous /2014 Doppler Doppler Unilat US [...] Brain wo CT BRAIN WITHOUT CONTRAST 03/02 [facility] contrast contrast CT /2014 CT COMPARISON: No [...] intracranial abnormality. Chest Chest CHEST CTA 03/02 [facility] Pulmonary Pulmonary /2014 Embolism Embolism CTA CTA [...] Date Comments Source Heart Rate 80 12/17/2016 [facility] Temperature Oral (F) 98.2 F 12/17/2016 [facility] Systolic (mm Hg) 125 12/17/2016 [facility] Diastolic (mm Hg) 70 12/17/2016 [facility] Respitory Rate 15 12/17/2016 [facility] Heart Rate 77 12/17/2016 [facility] Systolic (mm Hg) 129 12/17/2016 [facility] Diastolic (mm Hg) 73 12/17/2016 [facility] Temperature Oral (F) 98.3 F 12/17/2016 [facility] Respitory Rate 17 12/17/2016 [facility] Heart Rate 84 12/17/2016 [facility] Systolic (mm Hg) 129 12/17/2016 [facility] Diastolic (mm Hg) 69 12/17/2016 [facility] Temperature Oral (F) 98.2 F 12/17/2016 [facility] Respitory Rate 18 12/17/2016 [facility] BMI Calculated 42.52 12/17/2016 [facility] Weight 115.909 12/17/2016 [facility] Height 165.1 cm 12/17/2016 [facility] Respitory Rate 18 06/15/2016 [facility] Heart Rate 74 06/15/2016 [facility] Temperature Oral (F) 97.7 F 06/15/2016 [facility] Systolic (mm Hg) 113 06/15/2016 [facility] Diastolic (mm Hg) 76 06/15/2016 [facility] Systolic (mm Hg) 106 06/15/2016 [facility] Diastolic (mm Hg) 68 06/15/2016 [facility] Respitory Rate 18 06/15/2016 [facility] Heart Rate 95 06/15/2016 [facility] Temperature Oral (F) 98.0 F 06/15/2016 [facility] Respitory Rate 19 06/15/2016 [facility] Heart Rate 97 06/15/2016 [facility] Systolic (mm Hg) 109 06/15/2016 [facility] Diastolic (mm Hg) 66 06/15/2016 [facility] Temperature Oral (F) 97.6 F 06/15/2016 [facility] Weight 113.778 06/15/2016 [facility] BMI Calculated 41.74 06/15/2016 [facility] Height 165.1 cm 06/15/2016 [facility] Height 165.1 cm 06/14/2016 [facility] Weight 115.909 06/14/2016 [facility] BMI Calculated 42.52 06/14/2016 [facility] Encoun[facility] Location Location Encounter Encounter Reason Attending ADM DC Status Source Details Type Number For Provider Date Date Visit [facility] Outpt Diag [id number] Apolol Raygoza 11/21 11/22 [facility] Outpatient Services [facility] Observation [id number] No 06/14 06/16 [place] 1 Abdelhamid /2015 [facility] Outpatient [id number] LAYNE 08/17 [facility] 0 [facility] Emergency [id number] Shawna 12/17 12/17 [place] 0 [place] /2016 [facility] Outpatient [id number] LAYNE 12/18 [facility] 1 [place] Procedures Procedure Code Date Perfomer Comments Source Hysterectomy [id number] OP[facility] Operative procedure [id number] [facility] on spine [facility] Tonsillectomy [id number] [facility] Hysterectomy [id number] [place] Knee replacement [id number] [facility] Operative procedure [id number] [place] on spine Tonsillectomy [id number] [place] Hysterectomy [id number] [facility] Knee replacement [id number] [facility] Operative procedure [id number] [facility] on spine Tonsillectomy [id number] [facility]
--- OUTSIDE RECORDS SUMMARY | 2019-01-15 06:31 | XMS REPORT ---
:1960 Author Organization [employer] Care Team Providers Name Role Phone Hong, Na Provider Role Unavailable Allergies, Adverse Reactions, Alerts Substance Reaction Event Type Ibuprofen Info Not Available Drug Allergy Problems Problem Type Condition Code Onset Dates Condition Status Problem Vitamin D deficiency E55.9 Active Problem Anxiety F41.9 Active Problem Chills with fever R50.9 Active Problem Nephrolithiasis N20.0 Active Problem Influenza-like illness R69 Active Problem Encounter for screening for Z12.31 Active malignant neoplasm of breast Problem Osteoarthritis of knee, unspecified M17.10 Active laterality, unspecified osteoarthritis type Problem Osteoarthritis of multiple joints M15.9 Active Problem Obesity due to excess calories E66.09 Active Problem Arthritis M19.90 Active Problem DDD (degenerative disc disease), M51.37 Active lumbosacral Problem Scabies B86 Active Problem Unsteady gait R26.81 Active Problem Controlled type 2 diabetes mellitus E11.9 Active without complication, without long-term current use of insulin Problem Gastroesophageal reflux disease K21.0 Active with esophagitis Problem Itching with irritation L29.9 Active Problem Mixed hyperlipidemia E78.2 Active Problem Other specified bacterial agents as B96.89 Active the cause of diseases classified elsewhere Problem Benign essential HTN I10 Active Problem Incontinence R32 Active Assessment Anxiety F41.9 Active Problem Hyperglycemia R73.9 Active Problem Candidiasis of vagina B37.3 Active Assessment Acute vaginitis N76.0 Active Problem Abnormal urine odor R82.90 Active Assessment Gastroesophageal reflux disease K21.0 Active with esophagitis Problem Primary osteoarthritis of both M17.0 Active knees Problem Acute vaginitis N76.0 Active Problem Uncontrolled type 2 diabetes E11.65 Active mellitus without complication, without long-term current use of insulin Problem Back pain M54.9 Active Problem Bronchitis J40 Active Problem Morbid obesity E66.01 Active Assessment Hyperglycemia R73.9 Active Problem Rheumatoid arthritis M06.9 Active Assessment Uncontrolled type 2 diabetes E11.65 Active mellitus without complication, without long-term current use of insulin Problem Diabetes E11.9 Active Assessment Benign essential HTN I10 Active Problem Acute pain of left shoulder M25.512 Active Assessment Mixed hyperlipidemia E78.2 Active Problem History of fall Z91.81 Active Problem Other chronic pain G89.29 Active Problem Pain in left shoulder M25.512 Active Medications Medication Code Code Instructions Start End Status Dosage System Date Date Tradpaulnta [facility] 82342038808 5 MG Orally Active 1 tablet Once a day Tradjenta [facility] 42691991137 5 Orally Once a Active 1 tablet day Omeprazole [facility] 19306095563 40 MG Orally Active 1 capsule Once a day Xanax [facility] 01264990797 1 MG Orally Active 1 tablet Twice a day Nystatin [facility] 37292804816 257149 UNIT/GM Active 1 application Externally to affected Twice a day area Saxenda [facility] 66418997088 18 MG/3ML Active not defined Subcutaneous Augmentin [facility] 45846397170 500-125 MG Active not defined Orally Metformin HCl [facility] 22844132627 1000 MG Orally Mar 05, Active 1 tablet with twice a day 2017 a meal Protonix [facility] 15784313251 40 MG Active 1 TAB(S) ONCE A DAY ORALLY Clonidine HCl [facility] 57686689421 0.1 MG Orally Active one tablet Once a day every 8 hours hold if BP less than 150/90 Farxiga [facility] 66708462306 10mg By Mouth Mar Inactive 1 Daily 2017 VESIcare [facility] 53785485927 10 MG Orally Active 1 tablet Once a day Ventolin HFA [facility] 96515229820 108 (90 Base) Sep 05, Active 2 puffs as MCG/ACT 2017 needed Inhalation every 6 hrs Tamiflu [facility] 55952453539 75 MG Orally Sep 05, Active 1 capsule Twice a day 2017 Fluconazole [facility] 82948445549 150 MG Orally Active 1 tablet one tab a week and december repeat one tab in 1 week if no improvement Fluconazole [facility] 77641826424 150 MG Orally February Active 1 tablet one tab a week and december 2017 repeat one tab in 1 week if no improvement Norvasc [facility] 04544355782 5 MG Active 1 EACH ONCE A DAY ORALLY Lipitor [facility] 42037819230 40 MG Orally Active 1 tablet Once a day Victoza [facility] 69146339305 18 MG/3ML February Active as directed Subcutaneous , 0.6mg x 3 days2017 then 1.2mg x 3 days, then 1.8 mg daily Losartan [facility] 50931618678 100 MG Orally December 27, Active 1 tablet Potassium Once a day 2017 Amlodipine [facility] 90577134678 5 MG Orally Active 1 tablet Besylate Once a day Macrobid [facility] 52649901233 100 MG Orally Active 1 capsule every 12 hrs with food Clonidine HCl [facility] 69993437260 0.1 MG Orally Active one tablet Once a day every 8 hours hold if BP less than 150/90 Amlodipine [facility] 48045509257 10 MG Orally Active 1 tablet Besylate Once a day Bloomer [facility] 84594861992 10-325 MG Active 1 tablet as Orally every 6 needed hrs Results No Known Results Summary Purpose eClinicalWorks Submission
--- OUTSIDE RECORDS SUMMARY | 2019-01-15 06:31 | XMS REPORT ---
:1960 Author Organization e[employer]Works Care Team Providers Name Role Phone Gely, Sia Provider Role Unavailable Allergies No Known Allergies Problems Problem Type Condition Code Onset Dates Condition Status Problem Chills with fever R50.9 Active Problem Anxiety F41.9 Active Problem Influenza-like illness R69 Active Problem Bronchitis J40 Active Problem Vitamin D deficiency E55.9 Active Problem Nephrolithiasis N20.0 Active Problem Unsteady gait R26.81 Active Problem Candidiasis of vagina B37.3 Active Problem History of fall Z91.81 Active Problem Incontinence R32 Active Problem Acute pain of left shoulder M25.512 Active Problem Benign essential HTN I10 Active Problem Arthritis M19.90 Active Problem Controlled type 2 diabetes mellitus E11.9 Active without complication, without long-term current use of insulin Problem Scabies B86 Active Problem Acute vaginitis N76.0 Active Problem Uncontrolled type 2 diabetes E11.65 Active mellitus without complication, without long-term current use of insulin Problem Back pain M54.9 Active Problem Diabetes E11.9 Active Problem Other specified bacterial agents as B96.89 Active the cause of diseases classified elsewhere Problem Rheumatoid arthritis M06.9 Active Problem Gastroesophageal reflux disease K21.0 Active with esophagitis Problem Itching with irritation L29.9 Active Problem Abnormal urine odor R82.90 Active Problem Primary osteoarthritis of both M17.0 Active knees Problem Osteoarthritis of multiple joints M15.9 Active Problem Obesity due to excess calories E66.09 Active Problem Encounter for screening for Z12.31 Active malignant neoplasm of breast Problem Osteoarthritis of knee, unspecified M17.10 Active laterality, unspecified osteoarthritis type Problem Morbid obesity E66.01 Active Problem Other chronic pain G89.29 Active Problem DDD (degenerative disc disease), M51.37 Active lumbosacral Problem Pain in left shoulder M25.512 Active Medications Medication Code Code Instructions Start End Date Status Dosage System Date Metformin HCl [facility] 30470085446 1000 MG Orally February 27, Active 1 tablet twice a day 2017 with a meal Results No Known Results Summary Purpose eClinicalWorks Submission
--- OUTSIDE RECORDS SUMMARY | 2019-01-15 06:31 | XMS REPORT ---
[...] Start End Date Status Dosage System Date Cetirizine HCl [facility] 92417783256 10 MG Orally March 04, Aug 31, Active 1 tablet Once a day 2017 2018 Metoprolol ND 37876628959 25 MG Orally March 04, Active 1 tablet Tartrate once a day 2017 with food Diflucan [facility] 98494275268 150 MG Orally March 04Mar 08, Active 1 tablet Take one tablet 2017 2017 po now and repeat other in one weel Results No Known Results Summary Purpose eClinicalWorks Submission
--- OUTSIDE RECORDS SUMMARY | 2019-01-15 06:32 | XMS REPORT ---
[...] HTN I10 Active Problem Incontinence R32 Active Problem Hyperglycemia R73.9 Active Problem Candidiasis of vagina B37.3 Active Problem Abnormal urine odor R82.90 Active Problem Primary osteoarthritis of both M17.0 Active knees Problem Acute vaginitis N76.0 Active Problem Uncontrolled type 2 diabetes E11.65 Active mellitus without complication, without long-term current use of insulin Problem Back pain M54.9 Active Problem Bronchitis J40 Active Problem Morbid obesity E66.01 Active Assessment Yeast vaginitis B37.3 Active Problem Rheumatoid arthritis M06.9 Active Assessment Anxiety F41.9 Active Problem Diabetes E11.9 Active Problem Acute pain of left shoulder M25.512 Active Problem History of fall Z91.81 Active Problem Other chronic pain G89.29 Active Problem Pain in left shoulder M25.512 Active Medications Medication Code Code Instructions Start End Status Dosage System Date Date Metformin HCl [facility] 53546675672 1000 MG Orally Mar 05, Active 1 tablet with twice a day 2017 a meal Tradjenta [facility] 37393445246 5 Orally Once a Active 1 tablet day Cetirizine HCl [facility] 91058594674 10 MG Orally March 04, Aug 31, Active 1 tablet Once a day 2017 2018 Diflucan ND 53762153529 150 MG Orally Apr 02Apr Active 1 tablet today and one 2017 08, tablet tomorrow 2017 and repeat other in one week [place] [facility] 35364596915 10-325 MG Active 1 tablet as Orally every 6 needed hrs Norvasc [facility] 81777039754 5 MG Active 1 EACH ONCE A DAY ORALLY Nystatin [facility] 13298753797 177218 UNIT/GM Active 1 application Externally to affected Twice a day area Metoprolol ND 67466421965 25 MG Orally March 04, Active 1 tablet with Tartrate once a day 2017 food Omeprazole ND 14887944116 40 MG Orally Active 1 capsule Once a day Fluconazole [facility] 24539309234 150 MG Orally Active 1 tablet one tab a week today and may repeat one tab in 1 week if no improvement Macrobid [facility] 51446926482 100 MG Orally Active 1 capsule every 12 hrs with food VESIcare [facility] 72978665476 10 MG Orally Active 1 tablet Once a day Tamiflu ND 74481730180 75 MG Orally Sep 05, Active 1 capsule Twice a day 2017 Augmentin [facility] 83799985094 500-125 MG Active not defined Orally Victoza [facility] 64422802424 18 MG/3ML February 27, Active as directed Subcutaneous 2017 0.6mg x 3 days, then 1.2mg x 3 days, then 1.8 mg daily Lipitor ND 52917094386 40 MG Orally Active 1 tablet Once a day Xanax [facility] 68866876240 1 MG Orally Active 1 tablet Twice a day Saxenda ND 31985402970 18 MG/3ML Active not defined Subcutaneous Fluconazole ND 68461074045 150 MG Orally February 27, Active 1 tablet one tab a week 2018 today and may repeat one tab in 1 week if no improvement Clonidine HCl [facility] 63564748632 0.1 MG Orally Active one tablet Once a day every 8 hours hold if BP less than 150/90 Losartan ND 20298316585 100 MG Orally May 25, Active 1 tablet Potassium Once a day 2017 Ventolin HFA [facility] 37660685516 108 (90 Base) Active 2 puffs as MCG/ACT needed Inhalation every 6 hrs Protonix [facility] 79327708126 40 MG Active 1 TAB(S) ONCE A DAY ORALLY Clonidine HCl ND 31623275402 0.1 MG Orally Active one tablet Once a day every 8 hours hold if BP less than 150/90 Amlodipine [facility] 83329888179 10 MG Orally Active 1 tablet Besylate Once a day Tradjenta ND 07668422213 5 MG Orally Active 1 tablet Once a day Amlodipine ND 68269078246 5 MG Orally Active 1 tablet Besylate Once a day Results No Known Results Summary Purpose eClinicalWorks Submission
--- OUTSIDE RECORDS SUMMARY | 2019-01-15 06:32 | XMS REPORT ---
:1960 Author Organization e[employer]Works Care Team Providers Name Role Phone Hong, Na Provider Role Unavailable Allergies No Known Allergies [...] Active Problem Morbid obesity E66.01 Active Problem Rheumatoid arthritis M06.9 Active Problem Diabetes E11.9 Active Problem Acute pain of left shoulder M25.512 Active Problem History of fall Z91.81 Active Problem Other chronic pain G89.29 Active Problem Pain in left shoulder M25.512 Active Medications Medication Code Code Instructions Start End Date Status Dosage System Date Cetirizine HCl [facility] 41806756313 10 MG Orally Quynh Aug 31, Active 1 tablet Once a day 2017 2018 Results No Known Results Summary Purpose eClinicalWorks Submission
--- OUTSIDE RECORDS SUMMARY | 2019-01-15 06:32 | XMS REPORT ---
[...] Active Problem Morbid obesity E66.01 Active Assessment Acute back pain M54.9 Active Problem Rheumatoid arthritis M06.9 Active Assessment Anxiety F41.9 Active Problem Diabetes E11.9 Active Problem Acute pain of left shoulder M25.512 Active Assessment Uncontrolled type 2 diabetes E11.65 Active mellitus without complication, without long-term current use of insulin Problem History of fall Z91.81 Active Problem Other chronic pain G89.29 Active Problem Pain in left shoulder M25.512 Active Medications Medication Code Code Instructions Start End Status Dosage System Date Date Metformin HCl [facility] 88354315210 1000 MG Orally Mar 05, Active 1 tablet with twice a day 2018 a meal Losartan ND 13162325142 100 MG Orally December 27, Active 1 tablet Potassium Once a day 2017 Lipitor ND 39498969561 40 MG Orally Active 1 tablet Once a day Cetirizine HCl [facility] 30787910606 10 MG Orally March 04Aug 31, Active 1 tablet Once a day 2017 2018 Nystatin [facility] 20540590524 399087 UNIT/GM Active 1 application Externally to affected Twice a day area Tamiflu ND 48998512204 75 MG Orally Sep 05, Active 1 capsule Twice a day 2017 Xanax [facility] 46736154139 1 MG Orally Active 1 tablet Twice a day Ventolin HFA [facility] 62138368396 108 (90 Base) Active 2 puffs as MCG/ACT needed Inhalation every 6 hrs Omeprazole [facility] 37600575183 40 MG Orally Active 1 capsule Once a day Clonidine HCl [facility] 83624557221 0.1 MG Orally Active one tablet Once a day every 8 hours hold if BP less than 150/90 Augmentin [facility] 49095988723 500-125 MG Active not defined Orally Saxenda [facility] 70971210924 18 MG/3ML Active not defined Subcutaneous Tradjenta [facility] 55186805304 5 Orally Once a Active 1 tablet day Protonix [facility] 57131822150 40 MG Active 1 TAB(S) ONCE A DAY ORALLY Amlodipine [facility] 30583341187 10 MG Orally Active 1 tablet Besylate Once a day Victoza [facility] 32678903364 18 MG/3ML February 27, Active as directed Subcutaneous 2017 0.6mg x 3 days, then 1.2mg x 3 days, then 1.8 mg daily Norvasc [facility] 36515243966 5 MG Active 1 EACH ONCE A DAY ORALLY Fluconazole ND 75337142878 150 MG Orally February 27, Active 1 tablet one tab a week 2018 today and may repeat one tab in 1 week if no improvement Metoprolol ND 14194557667 25 MG Orally March 04, Active 1 tablet with Tartrate once a day 2017 food Basco [facility] 10068010248 10-325 MG Active 1 tablet as Orally every 6 needed hrs Amlodipine [facility] 72890350158 5 MG Orally Active 1 tablet Besylate Once a day Clonidine HCl [facility] 20188947406 0.1 MG Orally Active one tablet Once a day every 8 hours hold if BP less than 150/90 Macrobid [facility] 28784556878 100 MG Orally Active 1 capsule every 12 hrs with food Fluconazole [facility] 03395182796 150 MG Orally Active 1 tablet one tab a week today and may repeat one tab in 1 week if no improvement Tradjenta [facility] 57169415585 5 MG Orally Active 1 tablet Once a day VESIcare [facility] 32636833651 10 MG Orally Active 1 tablet Once a day Results No Known Results Summary Purpose eClinicalWorks Submission
--- OUTSIDE RECORDS SUMMARY | 2019-01-15 06:32 | XMS REPORT ---
:1960 Author Organization eClinicalWorks Care Team Providers Name Role Phone Hong, Na Provider Role Unavailable Allergies No Known Allergies Problems Problem Type Condition Code Onset Dates Condition Status Problem Unsteady gait R26.81 Active Problem Nephrolithiasis N20.0 Active Problem Incontinence R32 Active Problem Candidiasis of vagina B37.3 Active Problem Benign essential HTN I10 Active Problem Rheumatoid arthritis M06.9 Active Problem Diabetes E11.9 Active Problem Back pain M54.9 Active Problem Encounter for screening for Z12.31 Active malignant neoplasm of breast Problem Osteoarthritis of knee, unspecified M17.10 Active laterality, unspecified osteoarthritis type Problem Itching with irritation L29.9 Active Problem Abnormal urine odor R82.90 Active Problem Osteoarthritis of multiple joints M15.9 Active Problem Primary osteoarthritis of both M17.0 Active knees Problem Mixed hyperlipidemia E78.2 Active Problem Hyperglycemia R73.9 Active Problem Chest pain, unspecified type R07.9 Active Problem 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 Problem Pain in left shoulder M25.512 Active Problem DDD (degenerative disc disease), M51.37 Active lumbosacral Problem Obstructive sleep apnea G47.33 Active Problem Obesity due to excess calories E66.09 Active Problem Other specified bacterial agents as B96.89 Active the cause of diseases classified elsewhere Problem Acute vaginitis N76.0 Active Problem Daytime somnolence R40.0 Active Problem Uncontrolled type 2 diabetes E11.65 Active mellitus without complication, without long-term current use of insulin Problem Anxiety F41.9 Active Problem Acute pain of left shoulder M25.512 Active Problem Vitamin D deficiency E55.9 Active Problem History of fall Z91.81 Active Problem Influenza-like illness R69 Active Problem Morbid obesity E66.01 Active Problem Bronchitis J40 Active Problem Other chronic pain G89.29 Active Problem Controlled type 2 diabetes mellitus E11.9 Active without complication, without long-term current use of insulin Problem Chills with fever R50.9 Active Problem Gastroesophageal reflux disease K21.0 Active with esophagitis Problem Arthritis M19.90 Active Problem Scabies B86 Active Medications Medication Code Code Instructions Start End Status Dosage System Date [facility] [id number] 2.5 % Rectal Jul 31, Sep 29, Active 1 application Twice a day 2017 2018 to affected area Results No Known Results Summary Purpose eClinicalWorks Submission
--- OUTSIDE RECORDS SUMMARY | 2019-01-15 06:33 | XMS REPORT ---
:1960 Author Organization eClinicalWorks Care Team Providers Name Role Phone Hong, Na Provider Role Unavailable Allergies, Adverse Reactions, Alerts Substance Reaction Event Type Ibuprofen Info Not Available Drug Allergy Problems Problem Type Condition Code Onset Dates Condition Status Problem Osteoarthritis of knee, unspecified M17.10 Active laterality, unspecified osteoarthritis type Problem Obesity due to excess calories E66.09 Active Problem Candidiasis of vagina B37.3 Active Problem DDD (degenerative disc disease), M51.37 Active lumbosacral Assessment Eczema, unspecified type L30.9 Active Problem Incontinence R32 Active Assessment Viral upper respiratory illness J06.9 Active Problem Osteoarthritis of multiple joints M15.9 Active Assessment Anxiety F41.9 Active Problem Unsteady gait R26.81 Active Problem Rheumatoid arthritis M06.9 Active Problem Diabetes E11.9 Active Problem Benign essential HTN I10 Active Problem Abnormal urine odor R82.90 Active Problem Hyperglycemia R73.9 Active Problem Back pain M54.9 Active Problem Mixed hyperlipidemia E78.2 Active Problem Other specified bacterial agents as B96.89 Active the cause of diseases classified elsewhere Problem Acute vaginitis N76.0 Active Problem Primary osteoarthritis of knee, M17.10 Active unspecified laterality Problem 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 Problem Pain in left shoulder M25.512 Active Problem Other chronic pain G89.29 Active Problem Bronchitis J40 Active Problem Neuropathy G62.9 Active Problem Morbid obesity E66.01 Active Problem Chest pain, unspecified type R07.9 Active Assessment Acute non-recurrent sinusitis, J01.90 Active unspecified location Problem Uncontrolled type 2 diabetes E11.65 Active mellitus without complication, without long-term current use of insulin Assessment Fever, unspecified fever cause R50.9 Active Problem Obstructive sleep apnea G47.33 Active Assessment Flu-like symptoms R68.89 Active Problem Daytime somnolence R40.0 Active Problem Influenza-like illness R69 Active Problem Arthritis M19.90 Active Problem Encounter for screening for Z12.31 Active malignant neoplasm of breast Problem Itching with irritation L29.9 Active Problem Nephrolithiasis N20.0 Active Problem History of fall Z91.81 Active Problem Chills with fever R50.9 Active Problem Acute pain of left shoulder M25.512 Active Problem Vitamin D deficiency E55.9 Active Problem Controlled type 2 diabetes mellitus E11.9 Active without complication, without long-term current use of insulin Problem Anxiety F41.9 Active Problem Primary osteoarthritis of both M17.0 Active knees Problem Scabies B86 Active Problem Gastroesophageal reflux disease K21.0 Active with esophagitis Medications Medication Code Code Instructions Start End Status Dosage System Date Date Metformin HCl [facility] 62100468936 1000 MG Orally Mar 05, Active 1 tablet with twice a day 2017 a meal Victoza [facility] 05702566582 18 MG/3ML February Active as directed Subcutaneous , 0.6mg x 3 days, 2017 then 1.2mg x 3 days, then 1.8 mg daily Procto-Med HC [facility] 01355816826 2.5 % Rectal Jul 31Sep Active 1 application Twice a day 2017, to affected 2019 area Anusol-HC [facility] 05289254804 25 MG Rectal Jul 23Aug Active 1 suppository Three times a 2017 VESIcare [facility] 32461884141 10 MG Orally Active 1 tablet Once a day Tamiflu [facility] 40501786145 75 MG Orally Sep 05, Active 1 capsule Twice a day 2017 Augmentin [facility] 84866287857 875-125 MG Aug 20, Active 1 tablet Orally every 12 2019 hrs Cetirizine HCl ND 82545967932 10 MG Orally February Active 1 tablet Once a day 2017 2019 Losartan [facility] 12083028750 100 Orally Once Active 1 tablet Potassium a day Amlodipine ND 17667630885 5 MG Orally Active 1 tablet Besylate Once a day Augmentin [facility] 90190331136 500-125 MG Active not defined Orally [place] [facility] 75736305370 10-325 MG Active 1 tablet as Orally every 6 needed hrs Protonix [facility] 24784792398 40 MG Active 1 TAB(S) ONCE A DAY ORALLY Norvasc [facility] 93279955401 5 MG Active 1 EACH ONCE A DAY ORALLY Metoprolol [facility] 84024071537 25 MG Orally Active 1 tablet with Tartrate once a day food Fluconazole [facility] 66060426066 150 MG Orally Quynh Active 1 tablet one tab a week and december 2017 repeat one tab in 1 week if no improvement Amlodipine ND 65524335500 10 Orally Once Active 1 tablet Besylate a day Nystatin ND 80892819849 414465 UNIT/GM Active APPLY TO AFFTED AREA TWICE A DAY Tamiflu ND 65643673570 75 MG Orally Active 1 capsule Twice a day Lipitor ND 31579840766 40 MG Orally Active 1 tablet Once a day Triamcinolone ND 47165932211 0.1 % Aug 20, Active 1 application Acetonide Externally 2018 to affected Twice a day area Xanax ND 89940850204 1 MG Orally Active 1 tablet Twice a day Amlodipine ND 00748168010 10 MG Orally Active 1 tablet Besylate Once a day Tradjenta ND 42670606337 5 Orally Once a Active 1 tablet day Losartan ND 96466078477 100 MG Orally Active 1 tablet Potassium Once a day Ventolin HFA [facility] 38325489494 108 (90 Base) Active 2 puffs as MCG/ACT needed Inhalation every 6 hrs Augmentin [facility] 89148669052 875-125 MG Active 1 tablet Orally every 12 hrs Clonidine HCl [facility] 89988608288 0.1 MG Orally Active one tablet Once a day every 8 hours hold if BP less than 150/90 Clonidine HCl ND 66791486866 0.1 MG Orally Active one tablet Once a day every 8 hours hold if BP less than 150/90 Augmentin [facility] 97816251560 875-125 MG Jun 24, Active 1 tablet Orally every 12 2018 hrs Omeprazole ND 11039500568 40 MG Orally Active 1 capsule Once a day Cheratussin AC [facility] 41682103965 100-10 MG/5ML Active 5 ml Orally every 6 hrs Macrobid [facility] 67095272862 100 MG Orally Active 1 capsule every 12 hrs with food Tradjenta ND 59889824710 5 MG Orally Active 1 tablet Once a day Fluconazole ND 69134205168 150 MG Orally Active 1 tablet one tab a week today and december repeat one tab in 1 week if no improvement Saxenda ND 16691811283 18 MG/3ML Active not defined Subcutaneous Results No Known Results Summary Purpose eClinicalWorks Submission
--- OUTSIDE RECORDS SUMMARY | 2019-01-15 06:33 | XMS REPORT ---
:1960 Author Organization e[employer]Works Care Team Providers Name Role Phone Hong, Na Provider Role Unavailable Allergies, Adverse Reactions, Alerts Substance Reaction Event Type Ibuprofen Info Not Available Drug Allergy Ibuprofen Info Not Available Drug Allergy Problems Problem Type Condition Code Onset Dates Condition Status Problem Unsteady gait R26.81 Active Problem Nephrolithiasis N20.0 Active Problem Incontinence R32 Active Problem Candidiasis of vagina B37.3 Active Problem Benign essential HTN I10 Active Problem Rheumatoid arthritis M06.9 Active Assessment Daytime somnolence R40.0 Active Problem Diabetes E11.9 Active Problem Back [...] R07.9 Active Problem 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 Problem Pain in left shoulder M25.512 Active Problem DDD (degenerative disc disease), M51.37 Active lumbosacral Assessment Hemorrhoids, unspecified hemorrhoid K64.9 Active type Problem Obstructive sleep apnea G47.33 Active Problem Obesity due to excess calories E66.09 Active Assessment Anxiety F41.9 Active Problem Other specified bacterial agents as B96.89 Active the cause of diseases classified elsewhere Assessment Benign essential HTN I10 Active Problem Acute vaginitis N76.0 Active Assessment Obstructive sleep apnea G47.33 Active Problem Daytime somnolence R40.0 Active Assessment Snoring R06.83 Active Problem Uncontrolled type 2 diabetes E11.65 [...] Start End Status Dosage System Date Date Fluconazole [facility] 60033063524 150 MG Orally February 27, Active 1 tablet one tab a week 2018 today and may repeat one tab in 1 week if no improvement Victoza [facility] 69569765709 18 MG/3ML February 27, Active as directed Subcutaneous 2018 0.6mg x 3 days, then 1.2mg x 3 days, then 1.8 mg daily Tradjenta [facility] 87042498544 5 Orally Once a Active 1 tablet day Clonidine HCl [facility] 71666106471 0.1 MG Orally Active one tablet Once a day every 8 hours hold if BP less than 150/[address] [place] [facility] 73438095281 10-325 MG Active 1 tablet as Orally every 6 needed hrs Protonix [facility] 23452667152 40 MG Active 1 TAB(S) ONCE A DAY ORALLY Anusol-HC [facility] 07237494779 25 MG Rectal Jul 23, Aug 22, Active 1 suppository Three times a 2017 [address] [facility] 87840578128 10 MG Orally Active 1 tablet Besylate Once a day Metoprolol [facility] 29849810301 25 MG Orally Active 1 tablet with Tartrate once a day food Metformin HCl [facility] 05131045028 1000 MG Orally Mar 05, Active 1 tablet with twice a day 2018 a meal Saxenda [facility] 36585815114 18 MG/3ML Active not defined Subcutaneous Amlodipine ND 62755977619 5 MG Orally Active 1 tablet Besylate Once a day Norvasc [facility] 88428228827 5 MG Active 1 EACH ONCE A DAY ORALLY Tamiflu [facility] 55080667395 75 MG Orally Sep 05, Active 1 capsule Twice a day [address] [facility] 62079246853 875-125 MG Active 1 tablet Orally every [address] [facility] 96181903628 10 Orally Once Active 1 tablet Besylate a day Cetirizine HCl [facility] 42958710050 10 MG Orally March 04Aug 31, Active 1 tablet Once a day 2017 2018 Augmentin ND 95197892346 875-125 MG Jun 24, Active 1 tablet Orally every 12 [address] [facility] 31683509651 500-125 MG Active not defined Orally Lipitor ND 74374243996 40 MG Orally Active 1 tablet Once a day Losartan ND 08974251574 100 MG Orally Active 1 tablet Potassium Once a day Nystatin [facility] 79870299008 359051 UNIT/GM Active APPLY TO AFFTED AREA TWICE A DAY Fluconazole ND 93865589087 150 MG Orally Active 1 tablet one tab a week today and may repeat one tab in 1 week if no improvement Xanax [facility] 26039434533 1 MG Orally Active 1 tablet Twice a day Ventolin HFA [facility] 82095908496 108 (90 Base) Active 2 puffs as MCG/ACT needed Inhalation every 6 hrs Omeprazole ND 02528340063 40 MG Orally Active 1 capsule Once a day VESIcare [facility] 17049700194 10 MG Orally Active 1 tablet Once a day Tradjenta [facility] 02250372443 5 MG Orally Active 1 tablet Once a day Clonidine HCl ND 84937865326 0.1 MG Orally Active one tablet Once a day every 8 hours hold if BP less than 150/[address] [facility] 20790302952 100 MG Orally Active 1 capsule every 12 hrs with food Results No Known Results Summary Purpose eClinicalWorks Submission
--- OUTSIDE RECORDS SUMMARY | 2019-01-15 06:33 | XMS REPORT ---
:1960 Author Organization e[employer]Works Care Team Providers Name Role Phone Sia Hong Provider Role Unavailable Allergies No Known Allergies Problems Problem Type Condition Code Onset Dates Condition Status Problem Osteoarthritis of knee, unspecified M17.10 Active laterality, unspecified osteoarthritis type Problem Obesity due to excess calories E66.09 Active Problem Candidiasis of vagina B37.3 Active Problem DDD (degenerative disc disease), M51.37 Active lumbosacral Problem Incontinence R32 Active Problem Osteoarthritis of multiple joints M15.9 Active Problem Unsteady gait R26.81 Active Problem [...] unspecified laterality Problem 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
--- OUTSIDE RECORDS SUMMARY | 2019-01-15 06:33 | XMS REPORT ---
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
--- OUTSIDE RECORDS SUMMARY | 2019-01-15 06:33 | XMS REPORT ---
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 Problem Pain in left shoulder M25.512 Active Problem DDD (degenerative disc disease), M51.37 Active lumbosacral Assessment History of kidney stones Z87.442 Active Problem Obstructive sleep apnea G47.33 Active Problem Obesity due to excess calories E66.09 Active Assessment Other specified bacterial agents as B96.89 Active the cause of diseases classified elsewhere Problem Other specified bacterial agents as B96.89 Active the cause of diseases classified elsewhere Assessment Acute pharyngitis due to other J02.8 Active specified organisms Problem Acute vaginitis N76.0 Active Assessment Urinary tract infection without N39.0 Active hematuria, site unspecified Problem Daytime somnolence R40.0 Active Assessment Anxiety F41.9 Active Problem Uncontrolled type 2 diabetes E11.65 [...] Start End Status Dosage System Date Date Ventolin HFA [facility] 98689367915 108 (90 Base) Active 2 puffs as MCG/ACT needed Inhalation every 6 hrs Tradjenta [facility] 01899251095 5 MG Orally Active 1 tablet Once a day Amlodipine [facility] 79756183929 10 MG Orally Active 1 tablet Besylate Once a day Fluconazole [facility] 58872021280 150 MG Orally February 27, Active 1 tablet one tab a week 2018 today and may repeat one tab in 1 week if no improvement Augmentin [facility] 97834105866 875-125 MG Jun 24, Active 1 tablet Orally every 12 2018 hrs Augmentin [facility] 85039021870 875-125 MG Active 1 tablet Orally every 12 hrs Omeprazole [facility] 77820224406 40 MG Orally Active 1 capsule Once a day Metformin HCl [facility] 48431477968 1000 MG Orally Mar 05, Active 1 tablet with twice a day 2018 a meal Amlodipine [facility] 09727275934 10 Orally Once Active 1 tablet Besylate a day VESIcare [facility] 23877715006 10 MG Orally Active 1 tablet Once a day Norvasc [facility] 68969655381 5 MG Active 1 EACH ONCE A DAY ORALLY Protonix [facility] 98798498280 40 MG Active 1 TAB(S) ONCE A DAY ORALLY Nystatin [facility] 73449189811 451277 UNIT/GM Active APPLY TO AFFTED AREA TWICE A DAY Tradjenta [facility] 67201724843 5 Orally Once a Active 1 tablet day Clonidine HCl [facility] 09683558570 0.1 MG Orally Active one tablet Once a day every 8 hours hold if BP less than 150/90 Fluconazole [facility] 57334014951 150 MG Orally Active 1 tablet one tab a week today and may repeat one tab in 1 week if no improvement Metoprolol [facility] 83624461794 25 MG Orally March 04, Active 1 tablet with Tartrate once a day 2017 food Xanax [facility] 85123705201 1 MG Orally Active 1 tablet Twice a day Cetirizine HCl ND 70486754077 10 MG Orally March 04Aug 31, Active 1 tablet Once a day 2017 2018 Victoza [facility] 14676554216 18 MG/3ML February 27, Active as directed Subcutaneous 2018 0.6mg x 3 days, then 1.2mg x 3 days, then 1.8 mg daily Losartan ND 59299806509 100 MG Orally December 27, Active 1 tablet Potassium Once a day 2017 [place] [facility] 52907046803 10-325 MG Active 1 tablet as Orally every 6 needed hrs Lipitor ND 13204587679 40 MG Orally Active 1 tablet Once a day Saxenda [facility] 22049310446 18 MG/3ML Active not defined Subcutaneous Clonidine HCl [facility] 64443886832 0.1 MG Orally Active one tablet Once a day every 8 hours hold if BP less than 150/90 Augmentin [facility] 15613290667 500-125 MG Active not defined Orally Amlodipine [facility] 01239615898 5 MG Orally Active 1 tablet Besylate Once a day Macrobid [facility] 61950784473 100 MG Orally Active 1 capsule every 12 hrs with food Tamiflu [facility] 56105368173 75 MG Orally Sep 05, Active 1 capsule Twice a day 2017 Results No Known Results Summary Purpose eClinicalWorks Submission
--- OUTSIDE RECORDS SUMMARY | 2019-01-15 06:34 | XMS REPORT ---
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
--- OUTSIDE RECORDS SUMMARY | 2019-01-15 06:34 | XMS REPORT ---
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 Assessment Yeast [...] End Status Dosage System Date Date Metoprolol [facility] 52893471447 25 Orally once Active 1 tablet with Tartrate a day food Tradjenta [facility] 33449644452 5 MG Orally Active 1 tablet Once a day Fluconazole [facility] 20148181194 150 MG Orally Active 1 tablet one tab a week today and december repeat one tab in 1 week if no improvement Amlodipine ND 26857972979 10 Orally Once Active 1 tablet Besylate a day Ventolin HFA [facility] 89805609737 108 (90 Base) Active 2 puffs as MCG/ACT needed Inhalation every 6 hrs Protonix [facility] 86876749947 40 MG Active 1 TAB(S) ONCE A DAY ORALLY Nystatin [facility] 95982360298 932685 UNIT/GM Active APPLY TO AFFTED AREA TWICE A DAY Cetirizine HCl [facility] 31679472819 10 MG Orally February Active 1 tablet Once a day 2017 Omeprazole ND 15494857491 40 Orally Once Active 1 capsule a day [place] [facility] 37679481746 10-325 MG Active 1 tablet as Orally every 6 needed hrs Victoza [facility] 00728087311 18 MG/3ML February Active as directed Subcutaneous 26, 0.6mg x 3 2017 days, then 1.2mg x 3 days, then 1.8 mg daily Fluconazole [facility] 15165913054 150 MG Orally February Active 1 tablet one tab a week , , and december 20172018 repeat one tab in 1 week if no improvement Saxenda [facility] 64488095765 18 MG/3ML Active not defined Subcutaneous Norvasc [facility] 93724620111 5 MG Active 1 EACH ONCE A DAY ORALLY Xanax [facility] 93901124171 1 MG Orally Active 1 tablet Twice a day Gabapentin ND 88672654890 300 MG Orally Active 1 capsule Twice a day Amlodipine [facility] 60942937789 10 MG Orally Active 1 tablet Besylate Once a day Lipitor [facility] 96656319810 40 MG Orally Active 1 tablet Once a day Amlodipine [facility] 04195830225 5 MG Orally Active 1 tablet Besylate Once a day Clonidine HCl ND 08194666285 0.1 MG Orally Active one tablet Once a day every 8 hours hold if BP less than 150/90 Flomax ND 65271590223 0.4 MG Orally Active 1 capsule Once a day Augmentin [facility] 30369388595 875-125 MG Jun 24, Active 1 tablet Orally every 2017 12 hrs Triamcinolone ND 93814961680 0.1 % Aug 20, Active 1 application Acetonide Externally 2019 to affected Twice a day area Losartan ND 97126028045 100 MG Orally Active 1 tablet Potassium Once a day Metformin HCl ND 10648848353 1000 MG Orally Mar 05, Active 1 tablet with twice a day 2018 a meal Losartan ND 43261750312 100 Orally Active 1 tablet Potassium Once a day Augmentin [facility] 97311884914 875-125 MG Aug 20, Active 1 tablet Orally every 2018 12 hrs Tradjenta [facility] 71198224236 5 Orally Once Active 1 tablet a day Tamiflu [facility] 82632628375 75 MG Orally Sep 05, Active 1 capsule Twice a day 2017 Tamiflu [facility] 71775981521 75 MG Orally Active 1 capsule Twice a day Omeprazole ND 56250959489 40 MG Orally Active 1 capsule Once a day Augmentin [facility] 15822904171 500-125 MG Active not defined Orally Zithromax [place] ND 25534106087 250 MG Orally October Active 2 tablets on Once a day , 25, the first 20182018, then 1 tablet daily for 4 days Cheratussin AC [facility] 00685046530 100-10 MG/5ML Active 5 ml Orally every 6 hrs Augmentin [facility] 03734661357 875-125 MG Active 1 tablet Orally every 12 hrs Combivent [facility] 05179038891 20-100 MCG/ACT Active 1 puff Respimat Inhalation Four times a day Clonidine HCl [facility] 24648809781 0.1 MG Orally Active one tablet Once a day every 8 hours hold if BP less than 150/90 Macrobid [facility] 85643328216 100 MG Orally Active 1 capsule every 12 hrs with food VESIcare [facility] 79630187972 10 MG Orally Active 1 tablet Once a day Metoprolol [facility] 74114736838 25 MG Orally Active 1 tablet with Tartrate once a day food Results No Known Results Summary Purpose eClinicalWorks Submission
--- OUTSIDE RECORDS SUMMARY | 2019-01-15 06:34 | XMS REPORT ---
:1960 Author Organization eClinicalWorks Care Team Providers Name Role Phone Hong, Na Provider Role Unavailable Allergies, Adverse Reactions, Alerts Substance Reaction Event Type Ibuprofen Info Not Available Drug Allergy Problems Problem Type Condition Code Onset Dates Condition Status Problem Osteoarthritis of knee, M17.10 Active unspecified laterality, unspecified osteoarthritis type Problem Obesity due to excess calories E66.09 Active Problem Candidiasis of vagina B37.3 Active Problem DDD (degenerative disc disease), M51.37 Active lumbosacral Problem Incontinence R32 Active Problem Osteoarthritis of multiple joints M15.9 Active Problem Unsteady gait R26.81 Active Problem Rheumatoid arthritis M06.9 Active Problem Diabetes E11.9 Active Problem Benign essential HTN I10 Active Problem Back pain M54.9 Active Problem Pain in left shoulder M25.512 Active Problem Other chronic pain G89.29 Active Problem Morbid obesity E66.01 Active Problem Arthritis M19.90 Active Problem Itching with irritation L29.9 Active Problem History of fall Z91.81 Active Problem Acute pain of left shoulder M25.512 Active Problem Controlled type 2 diabetes E11.9 Active mellitus without complication, without long-term current use of insulin Problem Primary osteoarthritis of both M17.0 Active knees Problem Scabies B86 Active Problem Gastroesophageal reflux disease K21.0 Active with esophagitis Assessment Superficial burn of left forearm, T22.112A Active initial encounter Assessment Neuropathy G62.9 Active Assessment Daytime somnolence R40.0 Active Assessment Snoring R06.83 Active Assessment Acute vaginitis N76.0 Active Assessment Obstructive sleep apnea G47.33 Active Problem Abnormal urine odor R82.90 Active Assessment Primary osteoarthritis of knee, M17.10 Active unspecified laterality Problem Hyperglycemia R73.9 Active Problem Mixed hyperlipidemia E78.2 Active Problem Other specified bacterial agents B96.89 Active as the cause of diseases classified elsewhere Problem Acute vaginitis N76.0 Active Problem Primary osteoarthritis of knee, M17.10 Active unspecified laterality Problem 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 Problem Neuropathy G62.9 Active Problem Bronchitis J40 Active Problem Chest pain, unspecified type R07.9 Active Problem Uncontrolled type 2 diabetes E11.65 Active mellitus without complication, without long-term current use of insulin Assessment Benign essential HTN I10 Active Problem Obstructive sleep apnea G47.33 Active Assessment Anxiety F41.9 Active Problem Daytime somnolence R40.0 Active Assessment Nephrolithiasis N20.0 Active Problem Influenza-like illness R69 Active Problem Encounter for screening for Z12.31 Active malignant neoplasm of breast Problem Nephrolithiasis N20.0 Active Problem Chills with fever R50.9 Active Problem Vitamin D deficiency E55.9 Active Problem Anxiety F41.9 Active Medications Medication Code Code Instructions Start End Status Dosage System Date Date Combivent [facility] 77473764498 20-100 MCG/ACT Active 1 puff Respimat Inhalation Four times a day Victoza [facility] 13984787099 18 MG/3ML February Active as directed Subcutaneous , 0.6mg x 3 days, 2017 then 1.2mg x 3 days, then 1.8 mg daily Metformin HCl [facility] 17258915892 1000 MG Orally Mar 05, Active 1 tablet with twice a day 2017 a meal Omeprazole [facility] 11486387552 40 MG Orally Active 1 capsule Once a day Lipitor [facility] 23125131515 40 MG Orally Active 1 tablet Once a day Tamsulosin HCl [facility] 56058912754 0.4 MG Orally Sep 15Sep Active 1 capsule Once a day 2018 Norvasc [facility] 53553497802 5 MG Active 1 EACH ONCE A DAY ORALLY Fluconazole [facility] 92337793471 150 MG Orally Sep 15Sep Active 1 tablet one tab a week 2018 and december 2018 repeat one tab in 1 week if no improvement Tamiflu [facility] 43545962734 75 MG Orally Sep 05, Active 1 capsule Twice a day 2017 Fluconazole [facility] 32715082869 150 MG Orally February Active 1 tablet one tab a week and december 2017 repeat one tab in 1 week if no improvement Losartan [facility] 30015986088 100 Orally Once Active 1 tablet Potassium a day Flomax [facility] 10953506405 0.4 MG Orally Active 1 capsule Once a day Clonidine HCl [facility] 62921996987 0.1 MG Orally Active one tablet Once a day every 8 hours hold if BP less than 150/90 [place] [facility] 28171474597 18 MG/3ML Active not defined Subcutaneous Macrobid [facility] 43513358342 100 MG Orally Active 1 capsule every 12 hrs with food Silvadene ND 70382048988 1 % Externally Sep 15Sep Active 1 application Once a day 2018, to affected 2019 area Protonix ND 45429954738 40 MG Active 1 TAB(S) ONCE A DAY ORALLY Amlodipine ND 77861094028 10 MG Orally Active 1 tablet Besylate Once a day Amlodipine ND 67382590931 10 Orally Once Active 1 tablet Besylate a day Procto-Med HC [facility] 82430001247 2.5 % Rectal Jul 31Sep Active 1 application Twice a day 2017, to affected 2018 area Tamiflu ND 58321572707 75 MG Orally Active 1 capsule Twice a day Augmentin [facility] 65769725506 875-125 MG Jun 24, Active 1 tablet Orally every 12 2017 hrs Xanax ND 71179607008 1 MG Orally Active 1 tablet Twice a day Augmentin [facility] 74922358517 500-125 MG Active not defined Orally Augmentin [facility] 26390108001 875-125 MG Active 1 tablet Orally every 12 hrs Tradjenta [facility] 29142513185 5 Orally Once a Active 1 tablet day Metoprolol ND 07303543296 25 MG Orally Active 1 tablet with Tartrate once a day food Clonidine HCl ND 93829912606 0.1 MG Orally Active one tablet Once a day every 8 hours hold if BP less than 150/90 Tradjenta [facility] 84257420852 5 MG Orally Active 1 tablet Once a day Cheratussin AC [facility] 78982305141 100-10 MG/5ML Active 5 ml Orally every 6 hrs Losartan ND 09232455741 100 MG Orally Active 1 tablet Potassium Once a day Amlodipine ND 64214684537 5 MG Orally Active 1 tablet Besylate Once a day Nystatin [facility] 07190386523 094052 UNIT/GM Active APPLY TO AFFTED AREA TWICE A DAY Augmentin [facility] 14242038418 875-125 MG Aug 20, Active 1 tablet Orally every 12 2018 hrs Triamcinolone ND 48347778179 0.1 % Aug 20, Active 1 application Acetonide Externally 2019 to affected Twice a day area Gabapentin ND 62176194511 300 MG Orally Active 1 capsule Twice a day VESIcare [facility] 48925323199 10 MG Orally Active 1 tablet Once a day Fluconazole [facility] 65466281459 150 MG Orally Active 1 tablet one tab a week today and may repeat one tab in 1 week if no improvement Ventolin HFA [facility] 00925271577 108 (90 Base) Active 2 puffs as MCG/ACT needed Inhalation every 6 hrs [place] [facility] 74232127613 10-325 MG Active 1 tablet as Orally every 6 needed hrs Results No Known Results Summary Purpose eClinicalWorks Submission
--- OUTSIDE RECORDS SUMMARY | 2019-01-15 06:35 | XMS REPORT ---
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 Problem Obstructive [...] End Status Dosage System Date Date Tamiflu [facility] 28670706505 75 MG Orally Active 1 capsule Twice a day Augmentin [facility] 24648090094 500-125 MG Active not defined Orally Saxenda [facility] 00801587797 18 MG/3ML Active not defined Subcutaneous Amlodipine ND 34432568347 5 MG Orally Active 1 tablet Besylate Once a day Cetirizine HCl ND 53858791265 10 MG Orally Active 1 tablet Once a day Silvadene [facility] 33506737766 1 % Externally November Active 1 application twice a day , to affected 2018 area Amlodipine [facility] 69404924176 10 MG Orally Active 1 tablet Besylate Once a day Triamcinolone ND 91158837840 0.1 % Aug 20, Active 1 application Acetonide Externally 2019 to affected Twice a day area Gabapentin [facility] 46687088942 300 MG Orally Active 1 capsule Twice a day VESIcare [facility] 27081310418 10 MG Orally Active 1 tablet Once a day Fluconazole ND 90038589651 150 MG Orally Active 1 tablet one tab a week today and may repeat one tab in 1 week if no improvement Omeprazole ND 72850671832 40 Orally Once Active 1 capsule a day Cheratussin AC [facility] 94573584052 100-10 MG/5ML Active 5 ml Orally every 6 hrs Protonix [facility] 00047228585 40 MG Active 1 TAB(S) ONCE A DAY ORALLY Metoprolol ND 16492179878 25 MG Orally Active 1 tablet with Tartrate once a day food Xanax [facility] 33415158467 1 MG Orally Active 1 tablet Twice a day Losartan ND 59150884273 100 MG Orally Active 1 tablet Potassium Once a day Flomax ND 37488215730 0.4 MG Orally Active 1 capsule Once a day Losartan ND 03455079239 100 Orally Once Active 1 tablet Potassium a day Macrobid [facility] 17996403411 100 MG Orally Active 1 capsule every 12 hrs with food [place]aft [facility] 53472483425 10-325 MG Active 1 tablet as Orally every 6 needed hrs Omeprazole ND 80396437801 40 MG Orally Active 1 capsule Once a day Metformin HCl ND 72449798492 1000 MG Orally Mar 05, Active 1 tablet with twice a day 2018 a meal Augmentin [facility] 82990323968 875-125 MG Jun 24, Active 1 tablet Orally every 12 2017 hrs Combivent [facility] 71219340894 20-100 MCG/ACT Active 1 puff Respimat Inhalation Four times a day Clonidine HCl ND 93668564091 0.1 MG Orally Active one tablet Once a day every 8 hours hold if BP less than 150/90 Tradjenta [facility] 94589400224 5 MG Orally Active 1 tablet Once a day Augmentin [facility] 22976777463 875-125 MG Active 1 tablet Orally every 12 hrs Victoza [facility] 92107433221 18 MG/3ML February Active as directed Subcutaneous 26, 0.6mg x 3 days, 2017 then 1.2mg x 3 days, then 1.8 mg daily FreeStyle Jonatan [facility] 21576430753 - daily November Active as directed 14 Day [place] 2018 Lipitor ND 94228113135 40 MG Orally Active 1 tablet Once a day Amlodipine ND 09746024955 10 Orally Once Active 1 tablet Besylate a day Norvasc [facility] 34346001028 5 MG Active 1 EACH ONCE A DAY ORALLY Metoprolol ND 76574142763 25 Orally once Active 1 tablet with Tartrate a day food Tradjenta [facility] 40809623294 5 Orally Once a Active 1 tablet day Nystatin [facility] 76421273682 691986 UNIT/GM Active APPLY TO AFFTED AREA TWICE A DAY Ventolin HFA ND 82265592880 108 (90 Base) Active 2 puffs as MCG/ACT needed Inhalation every 6 hrs Augmentin ND 92880866765 875-125 MG Aug 20, Active 1 tablet Orally every 12 2019 hrs Flonase ND 60774957587 50 MCG/ACT November Active 2 spray in Nasally Once a 11, each nostril day 2018 Tamiflu ND 19431774078 75 MG Orally Sep 05, Active 1 capsule Twice a day 2017 FreeStyle Jonatan [facility] 63203066111 - [place] daily November Active as directed 14 Day [place] 2018 Clonidine HCl [facility] 67569236929 0.1 MG Orally Active one tablet Once a day every 8 hours hold if BP less than 150/90 Results No Known Results Summary Purpose eClinicalWorks Submission
--- OUTSIDE RECORDS SUMMARY | 2019-01-15 06:35 | XMS REPORT ---
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 Problem Obstructive [...] End Status Dosage System Date Date Omeprazole [facility] [place] 48019284619 40 Orally Once Active 1 capsule a day Lipitor ND 28469720485 40 MG Orally Active 1 tablet Once a day Losartan [facility] [place] 38642956893 100 Orally Once Active 1 tablet Potassium a day Triamcinolone [facility] [place] 25790048872 0.1 % Aug 20, Active 1 application Acetonide Externally 2018 to affected Twice a day area Tamiflu [facility] [place] 72363100684 75 MG Orally Active 1 capsule Twice a day [place] [facility] [place] 36506415367 10-325 MG Active 1 tablet as Orally every 6 needed hrs Tamiflu [facility] [place] 72214533700 75 MG Orally Sep 05, Active 1 capsule Twice a day 2017 Metoprolol [facility] [place] 66778054697 25 MG Orally Active 1 tablet with Tartrate once a day food Augmentin [facility] [place] 44977206986 500-125 MG Active not defined Orally Tradjenta [facility] [place] 66014185861 5 Orally Once a Active 1 tablet day Augmentin [facility] [place] 25681417401 875-125 MG Aug 20, Active 1 tablet Orally every 12 2019 hrs Flomax [facility] [place] 16594989597 0.4 MG Orally Active 1 capsule Once a day Nystatin [facility] [place] 07898894039 234096 UNIT/GM Active APPLY TO AFFTED AREA TWICE A DAY Amlodipine [facility] [place] 78008236360 10 Orally Once Active 1 tablet Besylate a day Clonidine HCl [facility] [place] 19437436576 0.1 MG Orally Active one tablet Once a day every 8 hours hold if BP less than 150/90 Fluconazole [facility] [place] 75975903809 150 MG Orally Active 1 tablet one tab a week today and may repeat one tab in 1 week if no improvement Norvasc [facility] [place] 93758146782 5 MG Active 1 EACH ONCE A DAY ORALLY Protonix [facility] [place] 43459214305 40 MG Active 1 TAB(S) ONCE A DAY ORALLY VESIcare [facility] [place] 96132566773 10 MG Orally Oct Active 1 tablet Once a day 2018 Omeprazole ND 38087950354 40 MG Orally Active 1 capsule Once a day Augmentin [facility] [place] 17157673758 875-125 MG Active 1 tablet Orally every 12 hrs Gabapentin ND 40048404674 300 MG Orally Active 1 capsule Twice a day FreeStyle Jonatan [facility] [place] 33458058054 - [place] daily November Active as directed 14 Day [place] 2018 Clonidine HCl [facility] [place] 39325207006 0.1 MG Orally Active one tablet Once a day every 8 hours hold if BP less than 150/90 Saxenda ND 96140321091 18 MG/3ML Active not defined Subcutaneous Cheratussin AC [facility] [place] 97691291421 100-10 MG/5ML Active 5 ml Orally every 6 hrs Augmentin [facility] [place] 62119034987 875-125 MG Jun 24, Active 1 tablet Orally every 12 2018 hrs Amlodipine [facility] [place] 60977827307 10 MG Orally Active 1 tablet Besylate Once a day Flonase [facility] [place] 35982832168 50 MCG/ACT November Active 2 spray in Nasally Once a , each nostril 2018 Ventolin HFA [facility] [place] 02940417193 108 (90 Base) Active 2 puffs as MCG/ACT needed Inhalation every 6 hrs FreeStyle Jonatan [facility] [place] 23409640099 - daily November Active as directed 14 Day [place] 2018 Cetirizine HCl ND 18994713177 10 MG Orally Active 1 tablet Once a day Metformin HCl ND 09721504065 1000 MG Orally Mar 05, Active 1 tablet with twice a day 2018 a meal Metoprolol ND 27096650826 25 Orally once Active 1 tablet with Tartrate a day food Losartan ND 70949961245 100 MG Orally Active 1 tablet Potassium Once a day Combivent ND 71471211070 20-100 MCG/ACT Active 1 puff Respimat Inhalation Four times a day Silvadene [facility] [place] 15103002036 1 % Externally November Active 1 application twice a day , to affected 2019 area Xanax [facility] [place] 87909607779 1 MG Orally Active 1 tablet Twice a day Amlodipine ND 13119634620 5 MG Orally Active 1 tablet Besylate Once a day Tradjenta ND 16162902753 5 MG Orally Active 1 tablet Once a day Victoza [facility] [place] 89186089853 18 MG/3ML February Active as directed Subcutaneous 26, 0.6mg x 3 days, 2017 then 1.2mg x 3 days, then 1.8 mg daily Macrobid [facility] [place] 10212885691 100 MG Orally Active 1 capsule every 12 hrs with food Results No Known Results Summary Purpose eClinicalWorks Submission
--- OUTSIDE RECORDS SUMMARY | 2019-01-15 06:35 | XMS REPORT ---
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 Problem Osteoarthritis [...] Start End Status Dosage System Date Date [facility] 88679735468 10-325 MG Active 1 tablet as Orally every 6 needed hrs Tamiflu [facility] 10349372682 75 MG Orally Active 1 capsule Twice a day Cheratussin AC [facility] 20107090709 100-10 MG/5ML Active 5 ml Orally every 6 hrs Metoprolol [facility] 39017190881 25 Orally once Active 1 tablet with Tartrate a day food Gabapentin [facility] 53490538460 300 MG Orally Active 1 capsule Twice a day Lipitor [facility] 16045873843 40 MG Orally Active 1 tablet Once a day Clonidine HCl [facility] 20777602947 0.1 MG Orally Active one tablet Once a day every 8 hours hold if BP less than 150/90 Macrobid [facility] 95470021733 100 MG Orally Active 1 capsule every 12 hrs with food Fluconazole [facility] 73631953622 150 MG Orally Active 1 tablet one tab a week today and may repeat one tab in 1 week if no improvement Zithromax [place] [facility] 25845637134 250 MG Orally October Active 2 tablets on Once a day , the first 20182018, then 1 tablet daily for 4 days Omeprazole [facility] 26071253763 40 Orally Once Active 1 capsule a day Amlodipine [facility] 41368144107 5 MG Orally Active 1 tablet Besylate Once a day Omeprazole [facility] 34802492612 40 MG Orally Active 1 capsule Once a day Tradjenta [facility] 40491259810 5 Orally Once Active 1 tablet a day Losartan [facility] 07108846797 100 Orally Active 1 tablet Potassium Once a day Ventolin HFA [facility] 40354691100 108 (90 Base) Active 2 puffs as MCG/ACT needed Inhalation every 6 hrs Tradjenta [facility] 73423357306 5 MG Orally Active 1 tablet Once a day Losartan [facility] 30417499812 100 MG Orally Active 1 tablet Potassium Once a day Fluconazole [facility] 29738659786 150 MG Orally February Active 1 tablet one tab a week , 21, and december 20172018 repeat one tab in 1 week if no improvement Cetirizine HCl ND 49250895000 10 MG Orally February Active 1 tablet Once a day 2017 Protonix [facility] 23174928568 40 MG Active 1 TAB(S) ONCE A DAY ORALLY Metoprolol ND 04091328572 25 MG Orally Active 1 tablet with Tartrate once a day food Norvasc [facility] 17824321539 5 MG Active 1 EACH ONCE A DAY ORALLY Metformin HCl ND 26105807914 1000 MG Orally Mar 05, Active 1 tablet with twice a day 2018 a meal Nystatin [facility] 31040471476 455783 UNIT/GM Active APPLY TO AFFTED AREA TWICE A DAY Amlodipine [facility] 49877298875 10 MG Orally Active 1 tablet Besylate Once a day Tamiflu ND 10803184564 75 MG Orally Sep 05, Active 1 capsule Twice a day 2017 Xanax ND 77783205350 1 MG Orally Active 1 tablet Twice a day Triamcinolone [facility] 80053962988 0.1 % Aug 20, Active 1 application Acetonide Externally 2018 to affected Twice a day area Combivent [facility] 00106911852 20-100 MCG/ACT Active 1 puff Respimat Inhalation Four times a day Clonidine HCl [facility] 82816481637 0.1 MG Orally Active one tablet Once a day every 8 hours hold if BP less than 150/90 Augmentin [facility] 28753799693 875-125 MG Jun 24, Active 1 tablet Orally every 2017 12 hrs Saxenda ND 06488124291 18 MG/3ML Active not defined Subcutaneous Augmentin [facility] 78861132603 500-125 MG Active not defined Orally Flomax [facility] 85103411574 0.4 MG Orally Active 1 capsule Once a day VESIcare [facility] 98367346929 10 MG Orally Active 1 tablet Once a day Victoza ND 52327729855 18 MG/3ML February Active as directed Subcutaneous , 0.6mg x 3 2017 days, then 1.2mg x 3 days, then 1.8 mg daily Augmentin [facility] 71906189898 875-125 MG Aug 20, Active 1 tablet Orally every 2018 12 hrs Augmentin [facility] 98126171257 875-125 MG Active 1 tablet Orally every 12 hrs Amlodipine ND 85245774872 10 Orally Once Active 1 tablet Besylate a day Results Name Result Date Reference Range Unit Abnormality Flag URINALYSIS AUTO W/O SCOPE (71736) ----NIT neg [id number] ----URO 0.2 20181023 ----PROTEIN 1+ 20181023 ----pH 5.5 20181023 ----BLO neg [id number] ----GLUCOSE 2+ 20181023 ----YESENIA 1+ 20181023 ----BILIRUBIN neg 20181023 ----KETONES 1+ 20181023 ----SPECIFIC GRAVITY 1.020 20181023 PVR ----PVR 0 [id number] Summary Purpose eClinicalWorks Submission
--- OUTSIDE RECORDS SUMMARY | 2019-01-15 06:36 | XMS REPORT ---
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 Problem Obstructive [...] Status Dosage System Date Date Cheratussin AC [facility] 28511422577 100-10 MG/5ML Active 5 ml Orally every 6 hrs VESIcare [facility] 57520116641 10 MG Orally Active 1 tablet Once a day Macrobid [facility] 70167229153 100 MG Orally Active 1 capsule every 12 hrs with food Ventolin HFA [facility] 66924495665 108 (90 Base) Active 2 puffs as MCG/ACT needed Inhalation every 6 hrs Clonidine HCl [facility] 65586622892 0.1 MG Orally Active one tablet Once a day every 8 hours hold if BP less than 150/90 Gabapentin [facility] 88662326373 300 MG Orally Active 1 capsule Twice a day Flonase [facility] 74952400414 50 MCG/ACT November Active 2 spray in Nasally Once a , each nostril 2018 Metoprolol [facility] 89427957190 25 Orally once Active 1 tablet with Tartrate a day food Silvadene [facility] 45320099173 1 % Externally November Active 1 application twice a day , to affected 2018 area Saxenda [facility] 49965192365 18 MG/3ML Active not defined Subcutaneous Tradjenta [facility] 45778011848 5 MG Orally Active 1 tablet Once a day Combivent [facility] 26523532900 20-100 MCG/ACT Active 1 puff Respimat Inhalation Four times a day Nystatin [facility] 85721783895 994487 UNIT/GM Active APPLY TO AFFTED AREA TWICE A DAY Protonix [facility] 19455625793 40 MG Active 1 TAB(S) ONCE A DAY ORALLY Amlodipine [facility] 01069736106 10 MG Orally Active 1 tablet Besylate Once a day Metoprolol [facility] 32256115562 25 MG Orally Active 1 tablet with Tartrate once a day food Cetirizine HCl [facility] 34579331102 10 MG Orally Active 1 tablet Once a day FreeStyle Jonatan [facility] 08362053822 - daily November Active as directed 14 Day [place] 2018 Lipitor ND 71458740241 40 MG Orally Active 1 tablet Once a day Amlodipine ND 74320962188 5 MG Orally Active 1 tablet Besylate Once a day [place]red [facility] 50571060187 10-325 MG Active 1 tablet as Orally every 6 needed hrs Augmentin ND 57686068827 875-125 MG Jun 24, Active 1 tablet Orally every 12 2018 hrs Losartan ND 34689001730 100 Orally Once Active 1 tablet Potassium a day Augmentin [facility] 46490959597 875-125 MG Aug 20, Active 1 tablet Orally every 12 2018 hrs FreeStyle Jonatan [facility] 69331125488 - [place] daily November Active as directed 14 Day [place] 2018 Metformin HCl ND 72349848086 1000 MG Orally Mar 05, Active 1 tablet with twice a day 2018 a meal Fluconazole ND 86973756041 150 MG Orally Active 1 tablet one tab a week today and may repeat one tab in 1 week if no improvement Triamcinolone [facility] 81220405586 0.1 % Aug 20, Active 1 application Acetonide Externally 2019 to affected Twice a day area Amlodipine ND 14951328977 10 Orally Once Active 1 tablet Besylate a day Tamiflu ND 64160667813 75 MG Orally Sep 05, Active 1 capsule Twice a day 2017 Omeprazole ND 64012731969 40 MG Orally Active 1 capsule Once a day Tradjenta ND 76583110062 5 Orally Once a Active 1 tablet day Norvasc [facility] 44879703187 5 MG Active 1 EACH ONCE A DAY ORALLY Tamiflu [facility] 62026857594 75 MG Orally Active 1 capsule Twice a day Augmentin [facility] 85812207460 875-125 MG Active 1 tablet Orally every 12 hrs Flomax ND 16598665410 0.4 MG Orally Active 1 capsule Once a day Victoza ND 79468373489 18 MG/3ML February Active as directed Subcutaneous 26, 0.6mg x 3 days, 2018 then 1.2mg x 3 days, then 1.8 mg daily Omeprazole ND 85329134665 40 Orally Once Active 1 capsule a day Clonidine HCl ND 10630149635 0.1 MG Orally Active one tablet Once a day every 8 hours hold if BP less than 150/90 Augmentin [facility] 53645806683 500-125 MG Active not defined Orally Xanax [facility] 54275737623 1 MG Orally Active 1 tablet Twice a day Losartan [facility] 30124159926 100 MG Orally Active 1 tablet Potassium Once a day Results Name Result Date Reference Range Unit Abnormality Flag URINALYSIS AUTO W/O SCOPE (44456) ----NIT neg [id number] ----URO 0.2 [id number] ----PROTEIN neg [id number] ----pH 5.5 20181126 ----BLO neg [id number] ----GLUCOSE 2+ 20181126 ----YESENIA neg [id number] ----BILIRUBIN neg [id number] ----KETONES neg [id number] ----SPECIFIC GRAVITY 1.025 [id number] Summary Purpose eClinicalWorks Submission
--- OUTSIDE RECORDS SUMMARY | 2019-01-15 06:36 | XMS REPORT ---
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 Problem Obstructive [...] Start End Status Dosage System Date Date Clonidine HCl [facility] 57877184444 0.1 MG Orally Active one tablet Once a day every 8 hours hold if BP less than 150/90 FreeStyle Jonatan [facility] 23445884283 - daily November Active as directed 14 Day [place] 2018 Gabapentin ND 88171729591 300 MG Orally Active 1 capsule Twice a day Omeprazole ND 34602652928 40 Orally Once Active 1 capsule a day Xanax ND 12594742798 1 MG Orally Active 1 tablet Twice a day Amlodipine ND 44154819695 10 Orally Once Active 1 tablet Besylate a day Tamiflu ND 71451745507 75 MG Orally Active 1 capsule Twice a day Augmentin [facility] 37435744161 875-125 MG Active 1 tablet Orally every 12 hrs Ventolin HFA [facility] 95194285710 108 (90 Base) Active 2 puffs as MCG/ACT needed Inhalation every 6 hrs Triamcinolone ND 28044042689 0.1 % Aug 20, Active 1 application Acetonide Externally 2019 to affected Twice a day area Amlodipine [facility] 10364304046 10 MG Orally Active 1 tablet Besylate Once a day Metoprolol ND 51474024841 25 MG Orally Active 1 tablet with Tartrate once a day food Metformin HCl ND 33347635094 1000 MG Orally Mar 05, Active 1 tablet with twice a day 2018 a meal Fluconazole ND 20279574840 150 MG Orally Active 1 tablet one tab a week today and may repeat one tab in 1 week if no improvement FreeStyle Jonatan [facility] 81750243516 - [place] daily November Active as directed 14 Day [place] 2018 Losartan ND 92745098725 100 Orally Once Active 1 tablet Potassium a day Augmentin [facility] 30785787319 875-125 MG Aug 20, Active 1 tablet Orally every 12 2019 hrs Augmentin [facility] 00372970220 875-125 MG Jun 24, Active 1 tablet Orally every 12 2018 hrs Omeprazole ND 06126727555 40 MG Orally Active 1 capsule Once a day Combivent [facility] 07108789512 20-100 MCG/ACT Active 1 puff Respimat Inhalation Four times a day Clonidine HCl ND 47332136998 0.1 MG Orally Active one tablet Once a day every 8 hours hold if BP less than 150/90 Losartan ND 42927333757 100 MG Orally Active 1 tablet Potassium Once a day VESIcare [facility] 40760910353 10 MG Orally Active 1 tablet Once a day Flomax ND 69533943206 0.4 MG Orally Active 1 capsule Once a day [place] [facility] 42693591300 10-325 MG Active 1 tablet as Orally every 6 needed hrs Fluconazole ND 16702934162 150 MG Orally December 17, Active 1 tablet one tablet now, 2019 1 tablet in 1 week Nystatin [facility] 46080288244 091616 UNIT/GM Active APPLY TO AFFTED AREA TWICE A DAY Metoprolol [facility] 19644671714 25 Orally once Active 1 tablet with Tartrate a day food Augmentin [facility] 95788808453 500-125 MG Active not defined Orally Norvasc [facility] 91815172091 5 MG Active 1 EACH ONCE A DAY ORALLY Tradjenta [facility] 43334632831 5 Active TAKE 1 TABLET BY MOUTH DAILY Macrobid [facility] 45131425848 100 MG Orally Active 1 capsule every 12 hrs with food Tamiflu [facility] 92075699477 75 MG Orally Sep 05, Active 1 capsule Twice a day 2017 Silvadene [facility] 02634132427 1 % Externally November Active 1 application twice a day , to affected 2018 area Amlodipine ND 44701245941 5 MG Orally Active 1 tablet Besylate Once a day Saxenda [facility] 66704897003 18 MG/3ML Active not defined Subcutaneous Victoza ND 99536802320 18 MG/3ML February Active as directed Subcutaneous 26, 0.6mg x 3 days, 2017 then 1.2mg x 3 days, then 1.8 mg daily Protonix [facility] 05223079597 40 MG Active 1 TAB(S) ONCE A DAY ORALLY Tradjenta [facility] 83624905564 5 MG Orally Active 1 tablet Once a day Cheratussin AC [facility] 80665076900 100-10 MG/5ML Active 5 ml Orally every 6 hrs Flonase [facility] 01842605115 50 MCG/ACT November Active 2 spray in Nasally Once a 11, each nostril 2018 Cetirizine HCl [facility] 74697561870 10 MG Orally Active 1 tablet Once a day Lipitor [facility] 30270370555 40 MG Orally Active 1 tablet Once a day Cipro [facility] 62436657531 500 MG Orally December 17December Active 1 tablet every 12 hrs 2018 Results No Known Results Summary Purpose eClinicalWorks Submission
[2019-01-15] MEDS ORDERED: HEPA 1000U/500MLS 1,000 UNIT/500 ML BAG IV ONE (06:54)
[2019-01-15] MEDS ORDERED: LIDOCAINE 1% MPF 30 ML VIAL ONE (06:54)
[2019-01-15] MEDS ORDERED: NA CHLORIDE 0.9% 500 ML ONE (07:07)
[2019-01-15] MEDS ORDERED: MIDAZOLAM HCL 2 MG/2 ML INJ ONE (07:44)
[2019-01-15] MEDS ORDERED: FENTANYL CITR 100 MCG/2 ML ONE (07:44)
[2019-01-15] MEDS ORDERED: NA CHLORIDE 0.9% 0 ML IV ONE (07:44)
[2019-01-15] MEDS ORDERED: ATROPINE SULF 1 MG/10 ML SYR IV ONE (07:44)
--- NOTE | 2019-01-15 13:26 | OP ---
Date of Procedure: 01/15/2019 Surgeon: Edwin Adams MD Office Mover: Christianne Hutton. Procedures: Left heart catheterization, selective coronary arteriogram. Indication: Chest pain, positive stress test. History Of Present Illness: Ms. Godoy is a 58-year-old woman admitted to the slab tripper today as an out patient, prepped and draped in the routine sterile fashion, given 4 mg of Versed for IV sedation. A 6-Wallis[place] sheath introduced in the right common femoral artery. Binta catheter 6-Wallis[place] were used t o do the coronary arterial arteriogram. She was found to have minimal coronary artery disease in the LAD and the RCA, just plaquing. She was codominant. There were no complications. Blood Loss: 5 cc. Postoperative Diagnosis: Minimal coronary artery disease. Plan: Medical therapy. Anesthesia: Total conscious sedation was 30 minutes. Disposition: The patient will be going home today, and she will follow up with me in the office in 2 weeks. DENIZ/SHAWNEE Voice ID: [id number] Report ID: [id number]
== END 2019-01-15 10:48 | disposition home or self-care (01) ==
LOC: CCL 06:25
DX: I25.10 Atherosclerotic heart disease of native coronary artery without angina pectoris (principal); I10 Essential (primary) hypertension; E78.6 Lipoprotein deficiency; E78.5 Hyperlipidemia, unspecified; E11.40 Type 2 diabetes mellitus with diabetic neuropathy, unspecified; K21.9 Gastro-esophageal reflux disease without esophagitis; G47.33 Obstructive sleep apnea (adult) (pediatric); F41.9 Anxiety disorder, unspecified; F17.210 Nicotine dependence, cigarettes, uncomplicated; E66.01 Morbid (severe) obesity due to excess calories; Z68.41 Body mass index [BMI] 40.0-44.9, adult; Z79.84 Long term (current) use of oral hypoglycemic drugs; Z79.899 Other long term (current) drug therapy
CPT/HCPCS: 85025; 80048; 36415; 85610; 82962 ×2; 85730; 71046; 93454; C1893; C1760; J2250; J3010; J0583

== ENCOUNTER 2019-09-10 12:41 | Observation (INO) | payer OTHER ==
--- OUTSIDE RECORDS SUMMARY | 2019-09-10 12:42 | XMS REPORT ---
:1960 Author Organization [employer]Works Care Team Providers Name Role Phone Hong, Na Provider Role Unavailable Allergies No Known Allergies Problems Problem Type Condition Code Onset Dates Condition Status Problem Rheumatoid arthritis M06.9 Active Problem Unsteady gait R26.81 Active Problem Benign essential HTN I10 Active Problem Diabetes E11.9 Active Problem Back pain M54.9 Active Problem Morbid obesity E66.01 Active Problem Pain in left shoulder M25.512 Active Problem Other chronic pain G89.29 Active Problem History of fall Z91.81 Active Problem Acute pain of left shoulder M25.512 Active Problem Arthritis M19.90 Active Problem Itching with irritation L29.9 Active Problem Gastroesophageal reflux disease K21.0 Active with esophagitis Problem Scabies B86 Active Problem Primary osteoarthritis of both M17.0 Active knees Problem Mixed hyperlipidemia E78.2 Active Problem Controlled type 2 diabetes mellitus E11.9 Active without complication, without long-term current use of insulin Problem Abnormal urine odor R82.90 Active Problem Hyperglycemia R73.9 Active Problem Uncontrolled type 2 diabetes E11.65 Active mellitus without complication, without long-term current use of insulin Problem Other specified bacterial agents as B96.89 Active the cause of diseases classified elsewhere Problem Acute vaginitis N76.0 Active Assessment Left flank pain R10.9 Active Assessment Left groin pain R10.32 Active Assessment Dysuria R30.0 Active Assessment Kidney stones N20.0 Active Problem Bronchitis J40 Active Problem Vitamin D deficiency E55.9 Active Problem Chest pain, unspecified type R07.9 Active Assessment Personal history of urinary calculi Z87.442 Active Problem Daytime somnolence R40.0 Active Problem 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 Problem Neuropathy G62.9 Active Problem Obstructive sleep apnea G47.33 Active Problem Stress incontinence N39.3 Active Problem Seasonal allergies J30.2 Active Problem Kidney stones N20.0 Active Problem Osteoarthritis of knee, unspecified M17.10 Active laterality, unspecified osteoarthritis type Problem Screening for malignant neoplasm of Z12.11 Active colon Problem Influenza-like illness R69 Active Problem Primary osteoarthritis of knee, M17.10 Active unspecified laterality Problem Chills with fever R50.9 Active Problem Kidney stone N20.0 Active Problem Nephrolithiasis N20.0 Active Problem Type 2 diabetes, controlled, with E11.40 Active neuropathy Problem Anxiety F41.9 Active Problem Osteoarthritis of multiple joints M15.9 Active Problem DDD (degenerative disc disease), M51.37 Active lumbosacral Problem Incontinence R32 Active Problem Obesity due to excess calories E66.09 Active Problem Encounter for screening for Z12.31 Active malignant neoplasm of breast Problem Candidiasis of vagina B37.3 Active Medications No Known Medications Results No Known Results Summary Purpose eClinicalWorks Submission
--- OUTSIDE RECORDS SUMMARY | 2019-09-10 12:43 | XMS REPORT ---
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 Problem Neuropathy G62.9 Active Problem Obstructive sleep apnea G47.33 Active Problem Stress incontinence N39.3 Active Problem Seasonal allergies J30.2 Active Problem Itching with irritation L29.9 Active Problem Gastroesophageal reflux disease K21.0 Active with esophagitis Problem Osteoarthritis of knee, unspecified M17.10 Active laterality, unspecified osteoarthritis type Problem Kidney stones N20.0 Active Problem Scabies B86 Active Problem Influenza-like illness R69 Active Problem Screening for malignant neoplasm of Z12.11 Active colon Problem Chills with fever R50.9 Active Problem Primary osteoarthritis of knee, M17.10 Active unspecified laterality Problem Nephrolithiasis N20.0 Active Problem Kidney stone N20.0 Active Problem Anxiety F41.9 Active Problem Type 2 diabetes, controlled, with E11.40 Active neuropathy Problem Osteoarthritis of multiple joints M15.9 Active Problem Primary osteoarthritis of both M17.0 Active knees Problem DDD (degenerative disc disease), M51.37 Active lumbosacral Problem Mixed hyperlipidemia E78.2 Active Problem Incontinence R32 Active Problem Controlled type 2 diabetes mellitus E11.9 Active without complication, without long-term current use of insulin Problem Obesity due to excess calories E66.09 Active Problem Abnormal urine odor R82.90 Active Problem Encounter for screening for Z12.31 Active malignant neoplasm of breast Problem Hyperglycemia R73.9 Active Problem Candidiasis of vagina B37.3 Active Problem Uncontrolled type 2 diabetes E11.65 Active mellitus without complication, without long-term current use of insulin Problem Other specified bacterial agents as B96.89 Active the cause of diseases classified elsewhere Problem Acute vaginitis N76.0 Active Medications No Known Medications Results No Known Results Summary Purpose eClinicalWorks Submission
--- OUTSIDE RECORDS SUMMARY | 2019-09-10 12:43 | XMS REPORT ---
[...] elsewhere Problem Acute vaginitis N76.0 Active Assessment Benign essential HTN I10 Active Assessment Kidney stones N20.0 Active Assessment Anxiety F41.9 Active Assessment History of kidney stones Z87.442 Active Assessment Seasonal allergies J30.2 Active Assessment Mixed hyperlipidemia E78.2 Active Assessment Acute urinary tract infection N39.0 Active Problem Bronchitis J40 Active Problem Vitamin D deficiency E55.9 Active Problem Chest pain, unspecified type R07.9 Active Assessment Uncontrolled type 2 diabetes E11.65 Active mellitus with hyperglycemia Problem Daytime somnolence R40.0 Active Problem 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 80858764410 1000 MG Orally Active 1 tablet with twice a day a meal Norvasc [facility] 90021502676 5 MG Active 1 EACH ONCE A DAY ORALLY Augmentin [facility] 17765332020 875-125 MG Active 1 tablet Orally every [address] [facility] 98597454431 4 MG Orally January Active 1 tablet every 12 hours 05, PRN nausea [address] [facility] 15495475181 10 Orally Once Active 1 tablet Besylate a day Nystatin [facility] 19913259511 421309 UNIT/GM Active APPLY TO AFFTED AREA TWICE A DAY Flonase [facility] 30416462276 50 MCG/ACT Active 2 spray in Nasally Once a each nostril day Cetirizine HCl [facility] 89873788705 10 MG Orally Active 1 tablet Once a day Augmentin [facility] 61972592697 875-125 MG Jun 24, Active 1 tablet Orally every [address] [facility] 28725044367 0.1 % Aug 20, Active 1 application Acetonide Externally 2018 to affected Twice a day area Tamiflu [facility] 13970825812 75 MG Orally Active 1 capsule Twice a day Amlodipine [facility] 33607877895 10 MG Orally Active 1 tablet Besylate Once a day Basaglar KwikPen [facility] 64457472788 100 UNIT/ML May 06, Active 10 units and subcutaneous 2019 increase by 2 daily units every 2 days until FBG less 100 (max 30 units daily) Clonidine HCl [facility] 48474761340 0.1 MG Orally Active one tablet Once a day every 8 hours hold if bp less than 150/[address] [facility] 35537155755 500 MG Orally May 21, May Active 1 tablet every 12 hrs [address] [facility] 74203237069 108 (90 Base) Active 2 puffs as MCG/ACT needed Inhalation every [address] [facility] 61175223303 0.4 MG Orally Active 1 capsule Once a day Tradjenta [facility] 61088324034 5 Active TAKE 1 TABLET BY MOUTH DAILY Metoprolol [facility] 97602023031 25 Orally once Active 1 tablet with Tartrate a day food VESIcare [facility] 82538355536 10 MG Orally Active 1 tablet Once a day Amlodipine [facility] 61829364544 5 MG Orally Active 1 tablet Besylate Once a day Clonidine HCl [facility] 65337009421 0.1 MG Orally Active one tablet Once a day every 8 hours hold if BP less than 150/[address] [facility] 19172109055 100-10 MG/5ML Active 5 ml Orally every [address] [facility] 29460198110 100 UNIT/ML Active 10 units and Subcutaneous increase by 2 once daily units every 2 days until fbg less 100 ( max of 30 units daily) Omeprazole [facility] 45088276738 40 MG Orally Active 1 capsule Once a day Combivent [facility] 19264989579 20-100 MCG/ACT Active 1 puff Respimat Inhalation Four times a day PRN Macrobid [facility] 55180022883 100 MG Orally Active 1 capsule every 12 hrs with [address] [facility] 17331369364 1 % Externally November Active 1 application twice a day , to affected [address] [facility] 67662396897 875-125 MG Aug 20, Active 1 tablet Orally every 12 2018 hrs Tamiflu ND 97506206158 75 MG Orally Sep 05, Active 1 capsule Twice a day [address] [facility] 47818105565 50 MG Orally Active 1 tablet with Tartrate once a day food Victoza [facility] 02988367609 18 MG/3ML February Active as directed Subcutaneous , 0.6mg x 3 days, 2018 then 1.2mg x 3 days, then 1.[address] [facility] 95180966096 150 MG Orally 1 May 21, Oct Active 1 tablet dose today, december 2018 18, repeat dose in 2019 1 week Atorvastatin ND 64027426467 40 MG Orally Active 1 tablet Calcium Once a day Saxenda [facility] 45248127002 18 MG/3ML Active not defined Subcutaneous Augmentin ND 21403782891 500-125 MG Active not defined Orally Xanax ND 12788209107 0.5 MG Orally Active 1 tablet Twice a day Gabapentin ND 45034529997 300 MG Orally Active 1 capsule Twice a day Fluconazole ND 21370892265 150 MG Orally December 17, Active 1 tablet one tablet now, 2018 1 tablet in 1 week Protonix ND 00965398470 40 MG Active 1 TAB(S) ONCE A DAY ORALLY FreeStyle Jonatan [facility] 24386851104 - [place] daily Active as directed 14 Day Sensor Tradjenta ND 84775267859 5 MG Orally Active 1 tablet Once a day Apriso ND 41120986417 0.375 GM Orally Active 4 capsules in Once a day the morning Lipitor ND 55629533060 40 MG Orally Active 1 tablet Once a day Zofran ND 85448829163 4 MG Orally Apr 03, Active as needed for Twice a day [address] [facility] 34145796804 150 MG Orally Active 1 tablet one tab a week today and may repeat one tab in 1 week if no improvement FreeStyle Jonatan [facility] 78378345981 - daily Active as directed [address] [place] [address] [facility] 47050741830 100 Active TAKE 1 TABLET Potassium BY MOUTH EVERY DAY Losartan [facility] 37117398454 100 MG Orally Active 1 tablet Potassium Once a day Tamsulosin HCl [facility] 44478826591 0.4 MG Orally Active 1 capsule Once a day Omeprazole ND 68169665905 40 Orally Once Active 1 capsule a day [place] [facility] 21966500577 10-325 MG Active 1 tablet as Orally every 6 needed hrs Results Name Result Date Reference Range Unit Abnormality Flag Urine Culture, Routine ----Urine Culture, Final report [id number] Routine ----Result 1 Escherichia coli [id number] Summary Purpose eClinicalWorks Submission
--- OUTSIDE RECORDS SUMMARY | 2019-09-10 12:44 | XMS REPORT ---
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 Problem Neuropathy [...] elsewhere Problem Acute vaginitis N76.0 Active Medications Medication Code Code Instructions Start End Status Dosage System Date Date Victoza [facility] 35933403043 18 MG/3ML February Active as directed Subcutaneous 26, 0.6mg x 3 days, 2018 then 1.2mg x 3 days, then 1.8 mg daily Zofran [facility] 35478246295 4 MG Orally January Active 1 tablet every 12 hours 05, PRN nausea 2018 Clonidine HCl [facility] 27306614483 0.1 MG Orally Active one tablet Once a day every 8 hours hold if BP less than 150/90 Tradjenta [facility] 93111332730 5 MG Orally Active 1 tablet Once a day Metoprolol [facility] 29012080304 50 MG Orally Active 1 tablet with Tartrate once a day food FreeStyle Jonatan [facility] 85505527100 - daily Active as directed 14 Day [place] Losartan [facility] 24092054329 100 Active TAKE 1 TABLET Potassium BY MOUTH EVERY DAY Amlodipine ND 10490117962 10 Orally Once Active 1 tablet Besylate a day Amlodipine [facility] 73200872768 5 MG Orally Active 1 tablet Besylate Once a day Hodgen [facility] 99134982154 10-325 MG Active 1 tablet as Orally every 6 needed hrs Augmentin [facility] 39206683578 875-125 MG Aug 20, Active 1 tablet Orally every 12 2019 hrs Gabapentin ND 07421909077 300 MG Orally Active 1 capsule Twice a day Amlodipine [facility] 64295889727 10 MG Orally Active 1 tablet Besylate Once a day Zofran [facility] 11231730640 4 MG Orally Apr 03, Active as needed for Twice a day 2018 nausea Cheratussin AC [facility] 88664308008 100-10 MG/5ML Active 5 ml Orally every 6 hrs Tamsulosin HCl [facility] 00222697738 0.4 MG Orally Active 1 capsule Once a day Atorvastatin [facility] 85380318344 40 MG Orally Active 1 tablet Calcium Once a day Triamcinolone [facility] 96801864744 0.1 % Aug 20, Active 1 application Acetonide Externally 2018 to affected Twice a day area Metformin HCl [facility] 09222651892 1000 MG Orally Active 1 tablet with twice a day a meal Xanax [facility] 22213181677 0.5 MG Orally Active 1 tablet Twice a day Norvasc [facility] 84546001878 5 MG Active 1 EACH ONCE A DAY ORALLY Saxenda [facility] 47520756227 18 MG/3ML Active not defined Subcutaneous Omeprazole [facility] 36754305406 40 MG Orally Active 1 capsule Once a day Macrobid [facility] 65445785031 100 MG Orally Active 1 capsule every 12 hrs with food Fluconazole [facility] 73644922224 150 MG Orally Active 1 tablet one tab a week today and may repeat one tab in 1 week if no improvement Lantus SoloStar [facility] 74854260390 100 UNIT/ML Active 10 units and Subcutaneous increase by 2 once daily units every 2 days until fbg less 100 ( max of 30 units daily) Omeprazole [facility] 62144914463 40 Orally Once Active 1 capsule a day Tradjenta [facility] 15811953306 5 Active TAKE 1 TABLET BY MOUTH DAILY Augmentin [facility] 43990915936 875-125 MG Active 1 tablet Orally every 12 hrs Ventolin HFA [facility] 81554291366 108 (90 Base) Active 2 puffs as MCG/ACT needed Inhalation every 6 hrs Metoprolol [facility] 89423260408 25 Orally once Active 1 tablet with Tartrate a day food Tamiflu [facility] 10602875309 75 MG Orally Sep 05, Active 1 capsule Twice a day 2017 Silvadene [facility] 64166813680 1 % Externally November Active 1 application twice a day 11, to affected 2018 area Combivent [facility] 77205042365 20-100 MCG/ACT Active 1 puff Respimat Inhalation Four times a day PRN Nystatin [facility] 47425809396 472641 UNIT/GM Active APPLY TO AFFTED AREA TWICE A DAY VESIcare [facility] 11286744789 10 MG Orally Active 1 tablet Once a day Tamiflu [facility] 98914777362 75 MG Orally Active 1 capsule Twice a day Cetirizine HCl [facility] 11211938264 10 MG Orally Active 1 tablet Once a day FreeStyle Jonatan [facility] 02365674360 - [place] daily Active as directed 14 Day S[place] Fluconazole ND 84016134163 150 MG Orally December 17, Active 1 tablet one tablet now, 2019 1 tablet in 1 week Augmentin [facility] 09424694809 875-125 MG Jun 24, Active 1 tablet Orally every 12 2018 hrs Lipitor ND 87411108109 40 MG Orally Active 1 tablet Once a day Losartan ND 81441743076 100 MG Orally Active 1 tablet Potassium Once a day Protonix [facility] 42994220886 40 MG Active 1 TAB(S) ONCE A DAY ORALLY Clonidine HCl ND 32416025275 0.1 MG Orally Active one tablet Once a day every 8 hours hold if bp less than 150/90 Augmentin [facility] 27253998917 500-125 MG Active not defined Orally Flonase [facility] 51639478554 50 MCG/ACT Active 2 spray in Nasally Once a each nostril day BD Pen Needle [facility] 67546689168 31G X 8 MM sub May 22, Active as directed Short U/F cutaneous daily 2018 Apriso [facility] 78334172332 0.375 GM Orally Active 4 capsules in Once a day the morning Basaglar KwikPen [facility] 95415875063 100 UNIT/ML May 06, Active 10 units and subcutaneous 2018 increase by 2 daily units every 2 days until FBG less 100 (max 30 units daily) Flomax [facility] 73769146486 0.4 MG Orally Active 1 capsule Once a day Results No Known Results Summary Purpose eClinicalWorks Submission
--- OUTSIDE RECORDS SUMMARY | 2019-09-10 12:44 | XMS REPORT ---
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
--- OUTSIDE RECORDS SUMMARY | 2019-09-10 12:44 | XMS REPORT ---
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 Problem Neuropathy [...] Start End Status Dosage System Date Date Amlodipine [facility] 34399532235 10 MG Orally Active 1 tablet Besylate Once a day Augmentin [facility] 52214232207 500-125 MG Active not defined Orally Cheratussin AC [facility] 99306367749 100-10 MG/5ML Active 5 ml Orally every 6 hrs Zofran [facility] 71584871329 4 MG Orally Apr 03, Active as needed for Twice a day 2018 nausea Apriso [facility] 25380395120 0.375 GM Orally Active 4 capsules in Once a day the morning Combivent [facility] 48877003076 20-100 MCG/ACT Active 1 puff Respimat Inhalation Four times a day PRN Omeprazole [facility] 44849695103 40 Orally Once Active 1 capsule a day Nystatin [facility] 52606492715 249439 UNIT/GM Active APPLY TO AFFTED AREA TWICE A DAY Tamiflu [facility] 95279728693 75 MG Orally Active 1 capsule Twice a day Flonase [facility] 87125206306 50 MCG/ACT Active 2 spray in Nasally Once a each nostril day Metoprolol [facility] 37229420334 50 MG Orally Active 1 tablet with Tartrate once a day food Silvadene [facility] 84324017214 1 % Externally November Active 1 application twice a day , to affected 2018 area Tradjenta [facility] 15097086305 5 MG Orally Active 1 tablet Once a day Fluconazole ND 90866362719 150 MG Orally December 17, Active 1 tablet one tablet now, 2018 1 tablet in 1 week Clonidine HCl ND 29574222569 0.1 MG Orally Active one tablet Once a day every 8 hours hold if bp less than 150/90 Basaglar JermaineikPen [facility] 88014861787 100 UNIT/ML May 06, Active 10 units and subcutaneous 2018 increase by 2 daily units every 2 days until FBG less 100 (max 30 units daily) Amlodipine [facility] 73199629239 10 Orally Once Active 1 tablet Besylate a day Losartan [facility] 83925889140 100 MG Orally Active 1 tablet Potassium Once a day Gabapentin ND 44160429077 300 MG Orally Active 1 capsule Twice a day Fluconazole ND 78883322431 150 MG Orally Active 1 tablet one tab a week today and may repeat one tab in 1 week if no improvement Augmentin [facility] 59009883747 875-125 MG Active 1 tablet Orally every 12 hrs Augmentin [facility] 52584860130 875-125 MG Jun 24, Active 1 tablet Orally every 12 2017 hrs Cetirizine HCl ND 79802929953 10 MG Orally Active 1 tablet Once a day Triamcinolone [facility] 28059840638 0.1 % Aug 20, Active 1 application Acetonide Externally 2019 to affected Twice a day area Augmentin [facility] 90621319196 875-125 MG Aug 20, Active 1 tablet Orally every 12 2018 hrs Tradjenta [facility] 14819181733 5 Active TAKE 1 TABLET BY MOUTH DAILY Macrobid [facility] 58910651505 100 MG Orally Active 1 capsule every 12 hrs with food Losartan [facility] 95972395285 100 Active TAKE 1 TABLET Potassium BY MOUTH EVERY DAY Xanax ND 83220506568 0.5 MG Orally Active 1 tablet Twice a day Tamiflu ND 48178941020 75 MG Orally Sep 05, Active 1 capsule Twice a day 2017 Flomax ND 22559076821 0.4 MG Orally Active 1 capsule Once a day Victoza [facility] 45856809890 18 MG/3ML February Active as directed Subcutaneous 26, 0.6mg x 3 days, 2018 then 1.2mg x 3 days, then 1.8 mg daily Protonix [facility] 03166114026 40 MG Active 1 TAB(S) ONCE A DAY ORALLY Saxenda ND 31812375500 18 MG/3ML Active not defined Subcutaneous Amlodipine ND 51760152335 5 MG Orally Active 1 tablet Besylate Once a day [place] [facility] 87017411725 10-325 MG Active 1 tablet as Orally every 6 needed hrs Tamsulosin HCl [facility] 46238051238 0.4 MG Orally Active 1 capsule Once a day FreeStyle Jonatan [facility] 27905530332 - daily Active as directed 14 Day [place] Ventolin HFA [facility] 66366647404 108 (90 Base) Active 2 puffs as MCG/ACT needed Inhalation every 6 hrs Norvasc [facility] 25817490843 5 MG Active 1 EACH ONCE A DAY ORALLY BD Pen Needle [facility] 52610263679 31G X 8 MM sub May 22, Active as directed Short U/F cutaneous daily 2019 VESIcare [facility] 51374550429 10 MG Orally Active 1 tablet Once a day Metformin HCl [facility] 98608615675 1000 MG Orally Active 1 tablet with twice a day a meal Omeprazole [facility] 16547641553 40 MG Orally Active 1 capsule Once a day Atorvastatin [facility] 67159204600 40 MG Orally Active 1 tablet Calcium Once a day Lipitor [facility] 47493800270 40 MG Orally Active 1 tablet Once a day Lantus SoloStar [facility] 39946669413 100 UNIT/ML Active 10 units and Subcutaneous increase by 2 once daily units every 2 days until fbg less 100 ( max of 30 units daily) FreeStyle Jonatan [facility] 42382046055 - [place] daily Active as directed 14 Day Sensor Zofran [facility] 16977767829 4 MG Orally Bibi Active 1 tablet every 12 hours 05, PRN nausea 2018 Metoprolol [facility] 03813723908 25 Orally once Active 1 tablet with Tartrate a day food Clonidine HCl [facility] 32316904498 0.1 MG Orally Active one tablet Once a day every 8 hours hold if BP less than 150/90 Results No Known Results Summary Purpose eClinicalWorks Submission
--- OUTSIDE RECORDS SUMMARY | 2019-09-10 12:44 | XMS REPORT ---
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
--- OUTSIDE RECORDS SUMMARY | 2019-09-10 12:44 | XMS REPORT ---
[...] E78.2 Active Problem Controlled type 2 diabetes E11.9 Active mellitus without complication, without long-term current use of insulin Problem Abnormal urine odor R82.90 Active Problem Hyperglycemia R73.9 Active Problem Uncontrolled type 2 diabetes E11.65 Active mellitus without complication, without long-term current use of insulin Problem Other specified bacterial agents B96.89 Active as the cause of diseases classified elsewhere Problem Acute vaginitis N76.0 Active Assessment Primary osteoarthritis of knee, M17.10 Active unspecified laterality Assessment Mixed hyperlipidemia E78.2 Active Assessment Cold intolerance R68.89 Active Assessment Uncontrolled type 2 diabetes E11.65 Active mellitus with hyperglycemia Assessment Benign essential HTN I10 Active Assessment Nausea R11.0 Active Assessment Anxiety F41.9 Active Assessment Kidney stones N20.0 Active Assessment Seasonal allergies J30.2 Active Assessment Acute sinusitis J01.90 Active Problem Bronchitis J40 Active Problem Vitamin D deficiency E55.9 Active Problem Chest pain, unspecified type R07.9 Active Assessment Superficial burn of back of left T23.162A Active hand, initial encounter Problem Daytime somnolence R40.0 Active Problem 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 Problem Neuropathy G62.9 Active Problem Obstructive sleep apnea G47.33 Active Problem Stress incontinence N39.3 Active Problem Seasonal allergies J30.2 Active Problem Kidney stones N20.0 Active Problem Osteoarthritis of knee, M17.10 Active unspecified laterality, unspecified osteoarthritis type Problem Screening for malignant neoplasm Z12.11 Active of colon Problem Influenza-like illness R69 Active Problem [...] Status Dosage System Date Date Metoprolol [facility] 67877297149 50 MG Orally Active 1 tablet Tartrate once a day with food Nystatin [facility] 56770462623 088209 UNIT/GM Active APPLY TO AFFTED AREA TWICE A DAY Amlodipine [facility] 44183107981 5 MG Orally Active 1 tablet Besylate Once a day Tamiflu [facility] 06969898075 75 MG Orally Active 1 capsule Twice a day BD Pen Needle [facility] 04256368632 31G X 8 MM sub May 22, Active as directed Short U/F cutaneous 2018 daily Levocetirizine [facility] 58008588744 5 MG Orally Jul 06December Active 1 tablet in Dihydrochloride Once a day 2018, the evening 2019 Apriso [facility] 71181383586 0.375 GM Active 4 capsules Orally Once a in the day morning Gabapentin [facility] 79961051916 300 MG Orally Active 1 capsule Twice a day [place] [facility] 49214575069 10-325 MG Active 1 tablet as Orally every 6 needed hrs Clonidine HCl [facility] 05469085850 0.1 MG Orally Active one tablet Once a day every 8 hours hold if BP less than 150/90 Zofran [facility] 53720825882 4 MG Orally January Active 1 tablet every 12 hours 05, PRN nausea 2018 Flonase [facility] 97338883330 50 MCG/ACT Active 2 spray in Nasally Once a each nostril day Atorvastatin [facility] 42439701971 40 MG Orally Active 1 tablet Calcium Once a day Losartan [facility] 68380174720 100 Active TAKE 1 Potassium TABLET BY MOUTH EVERY DAY Tradjenta [facility] 30582608449 5 MG Orally Active 1 tablet Once a day Cheratussin AC [facility] 21841330334 100-10 MG/5ML Active 5 ml Orally every 6 hrs FreeStyle Jonatan ND 29058975804 - daily Active as directed 14 Day [place] Metformin HCl ND 61470496204 1000 MG Orally Active 1 tablet twice a day with a meal FreeStyle Jonatan [facility] 85286437472 - [place] daily Active as directed 14 Day Sensor Protonix ND 19601403825 40 MG Active 1 TAB(S) ONCE A DAY ORALLY Saxenda [facility] 34976354252 18 MG/3ML Active not defined Subcutaneous Tamiflu ND 72609295920 75 MG Orally Sep 05, Active 1 capsule Twice a day 2017 Victoza [facility] 86465042801 18 MG/3ML February Active as directed Subcutaneous 26, 0.6mg x 3 2017 days, then 1.2mg x 3 days, then 1.8 mg daily Amlodipine [facility] 11171867858 10 MG Orally Active 1 tablet Besylate Once a day Losartan ND 18548710659 100 MG Orally Active 1 tablet Potassium Once a day Tamsulosin HCl ND 60862926215 0.4 MG Orally Active 1 capsule Once a day Combivent [facility] 91168328867 20-100 MCG/ACT Active 1 puff Respimat Inhalation Four times a day PRN Augmentin [facility] 22247879371 875-125 MG Dec Active 1 tablet Orally every 09, 12 hrs 2018 Tradjenta [facility] 19763858258 5 Active TAKE 1 TABLET BY MOUTH DAILY Fluconazole [facility] 43623984902 150 MG Orally Active 1 tablet one tab a week today and may repeat one tab in 1 week if no improvement Flomax ND 85337351290 0.4 MG Orally Active 1 capsule Once a day Amlodipine ND 10184490421 10 Orally Once Active 1 tablet Besylate a day Norvasc [facility] 84233231145 5 MG Active 1 EACH ONCE A DAY ORALLY Omeprazole ND 30076626001 40 Orally Once Active 1 capsule a day Fluconazole ND 95339182699 150 MG Orally Dec 02, Dec Active 1 tablet 1 dose today, 2018 repeat 2019 dose in 1 week Xanax ND 33549352383 0.5 MG Orally Active 1 tablet Twice a day Silvadene [facility] 22236206124 1 % Externally November Active 1 twice a day , application 2018 to affected area Lipitor ND 98210826820 40 MG Orally Active 1 tablet Once a day Augmentin [facility] 66022732493 875-125 MG Active 1 tablet Orally every 12 hrs Zofran ND 02804097697 4 MG Orally Apr 03, Active as needed Twice a day 2018 for nausea Fluconazole ND 96012515662 150 MG Orally December 17, Active 1 tablet one tablet 2018 now, 1 tablet in 1 week Lantus SoloStar ND 41856055056 100 UNIT/ML Active 10 units and Subcutaneous increase by once daily 2 units every 2 days until fbg less 100 ( max of 30 units daily) Clonidine HCl ND 28615050772 0.1 MG Orally Active one tablet Once a day every 8 hours hold if bp less than 150/90 Augmentin [facility] 80932923348 875-125 MG Aug 20, Active 1 tablet Orally every 2018 12 hrs Macrobid [facility] 64437202950 100 MG Orally Active 1 capsule every 12 hrs with food Augmentin [facility] 47211968944 875-125 MG Jun 24, Active 1 tablet Orally every 2018 12 hrs Augmentin [facility] 77268981631 500-125 MG Active not defined Orally Omeprazole ND 23894542110 40 MG Orally Active 1 capsule Once a day Ventolin HFA [facility] 20199908168 108 (90 Base) Active 2 puffs as MCG/ACT needed Inhalation every 6 hrs Triamcinolone ND 95806871635 0.1 % Aug 20, Active 1 Acetonide Externally 2018 application Twice a day to affected area Cetirizine HCl ND 34154881998 10 MG Orally Dec Inactive 1 tablet Once a day 2018 Metoprolol ND 35799481848 25 Orally once Active 1 tablet Tartrate a day with food Basaglar KwikPen ND 64660878211 100 UNIT/ML May 06, Active 10 units and subcutaneous 2018 increase by daily 2 units every 2 days until FBG less 100 (max 30 units daily) VESIcare [facility] 50635808646 10 MG Orally Active 1 tablet Once a day Results Name Result Date Reference Range Unit Abnormality Flag Urine Dip Stick ----Appearance yellow, clear [id number] ----SP. Gr 1.020 [id number] ----pH 6.0 20190706 ----Ketone Neg [id number] ----Glucose Trace [id number] ----Blood Trace [id number] ----Protein Trace [id number] ----Nitrite Neg [id number] ----Leukocytes Trace [id number] Summary Purpose eClinicalWorks Submission
--- OUTSIDE RECORDS SUMMARY | 2019-09-10 12:45 | XMS REPORT ---
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
--- OUTSIDE RECORDS SUMMARY | 2019-09-10 12:45 | XMS REPORT ---
[...] M19.90 Active Problem Coronary artery disease of bill [...] End Status Dosage System Date Date Fluconazole [facility] 78893206035 150 MG Orally December 17, Active 1 tablet one tablet 2018 now, 1 tablet in 1 week Lipitor ND 06779360341 40 MG Orally Active 1 tablet Once a day Apriso [facility] 50471067901 0.375 GM Active 4 capsules in Orally Once a the morning day Atorvastatin [facility] 84686621389 40 MG Orally Active 1 tablet Calcium Once a day VESIcare [facility] 18313704298 10 MG Orally Active 1 tablet Once a day Saxenda [facility] 40670544257 18 MG/3ML Active not defined Subcutaneous Fluconazole [facility] 10643057822 150 MG Orally Active 1 tablet one tab a week today and may repeat one tab in 1 week if no improvement Clonidine HCl [facility] 96983092803 0.1 MG Orally Active one tablet Once a day every 8 hours hold if BP less than 150/90 Gabapentin [facility] 35585517952 300 MG Orally Active 1 capsule Twice a day Zofran [facility] 99438997534 4 MG Orally Apr 03, Active as needed for Twice a day 2018 nausea Metformin HCl [facility] 41425507170 1000 MG Orally Active 1 tablet with twice a day a meal Hope [facility] 88654906372 10-325 MG Active 1 tablet as Orally every 6 needed hrs Clonidine HCl [facility] 82675244381 0.1 MG Orally Active one tablet Once a day every 8 hours hold if bp less than 150/90 Amlodipine [facility] 86890857666 5 MG Orally Active 1 tablet Besylate Once a day Losartan Potassium [facility] 70180792443 100 MG Orally Active 1 tablet Once a day Lantus SoloStar [facility] 34727822197 100 UNIT/ML Active 10 units and Subcutaneous increase by 2 once daily units every 2 days until fbg less 100 ( max of 30 units daily) Augmentin [facility] 91517828255 500-125 MG Active not defined Orally Amlodipine [facility] 53010803346 10 MG Orally Active 1 tablet Besylate Once a day Tradjenta [facility] 72767890566 5 MG Orally Active 1 tablet Once a day Cheratussin AC ND 05239217148 100-10 MG/5ML Active 5 ml Orally every 6 hrs Tradjenta [facility] 25423705389 5 Active TAKE 1 TABLET BY MOUTH DAILY FreeStyle Jonatan 14 [facility] 75052039842 - daily Active as directed Day Macon Ventolin HFA [facility] 45088660965 108 (90 Base) Active 2 puffs as MCG/ACT needed Inhalation every 6 hrs Amlodipine [facility] 65375609711 10 Orally Once Active 1 tablet Besylate a day Losartan Potassium [facility] 20624013568 100 Active TAKE 1 TABLET BY MOUTH EVERY DAY Metoprolol [facility] 65816215039 50 MG Orally Active 1 tablet with Tartrate once a day food Tamiflu [facility] 38664565823 75 MG Orally Active 1 capsule Twice a day Tamiflu [facility] 88017648266 75 MG Orally Sep 05, Active 1 capsule Twice a day 2017 Combivent Respimat [facility] 40728890794 20-100 MCG/ACT Active 1 puff Inhalation Four times a day PRN Omeprazole [facility] 85563035129 40 MG Orally Active 1 capsule Once a day Victoza [facility] 91800546851 18 MG/3ML February Active as directed Subcutaneous 26, 0.6mg x 3 2018 days, then 1.2mg x 3 days, then 1.8 mg daily Tamsulosin HCl ND 51788789551 0.4 MG Orally Active 1 capsule Once a day Augmentin [facility] 24643440591 875-125 MG Active 1 tablet Orally every 12 hrs Augmentin [facility] 51626607463 875-125 MG Jun 24, Active 1 tablet Orally every 2017 12 hrs Triamcinolone ND 24597622663 0.1 % Aug 20, Active 1 application Acetonide Externally 2019 to affected Twice a day area Augmentin [facility] 32669375620 875-125 MG Aug 20, Active 1 tablet Orally every 2018 12 hrs Flomax ND 73640401569 0.4 MG Orally Active 1 capsule Once a day Levocetirizine ND 96874807418 5 MG Orally Jul 06December Active 1 tablet in Dihydrochloride Once a day 2018, the evening 2019 Protonix [facility] 58276926114 40 MG Active 1 TAB(S) ONCE A DAY ORALLY Xanax [facility] 90279760464 0.5 MG Orally Active 1 tablet Twice a day Metoprolol [facility] 87771600492 25 Orally once Active 1 tablet with Tartrate a day food Omeprazole [facility] 42917102043 40 Orally Once Active 1 capsule a day Zofran [facility] 95030343458 4 MG Orally January Active 1 tablet every 12 hours 05, PRN nausea 2018 Basaglar KwikPen [facility] 25031830910 100 UNIT/ML May 06, Active 10 units and subcutaneous 2018 increase by 2 daily units every 2 days until FBG less 100 (max 30 units daily) Silvadene [facility] 94816482902 1 % Externally November Active 1 application twice a day , to affected 2019 area FreeStyle Jonatan 14 [facility] 28892787707 - [place] daily Active as directed Day Sensor Nystatin [facility] 80473796207 042101 UNIT/GM Active APPLY TO AFFTED AREA TWICE A DAY Flonase [facility] 82755999459 50 MCG/ACT Active 2 spray in Nasally Once a each nostril day Macrobid [facility] 07125095748 100 MG Orally Active 1 capsule every 12 hrs with food Norvasc [facility] 84173935951 5 MG Active 1 EACH ONCE A DAY ORALLY BD Pen Needle [facility] 81880170501 31G X 8 MM sub May 22, Active as directed Short U/F cutaneous 2018 daily Results No Known Results Summary Purpose eClinicalWorks Submission
[2019-09-10 13:23] LABS: Absolute Lymphocytes (CBC) 3.2 K/uL (0.7-4.9); Basophils % 1.4 % (0-1.3); Hematocrit 39.2 % (36.0-45.0); Lymphocytes % 26.5 % (15.3-44.8); MPV 9.9 fL (7.6-11.3); RBC Red Blood Cell Count 4.59 M/uL (3.86-4.86)
[2019-09-10 13:37] LABS: Protime INR 1.04
[2019-09-10 13:39] LABS: ALT/SGPT 21 U/L (12-78); AST/SGOT 10 U/L (15-37); Albumin 3.6 g/dL (3.4-5.0); Alkaline Phosphatase 105 U/L (45-117); BUN Blood Urea Nitrogen 7 mg/dL (7-18); Bicarbonate 28 mmol/L (21-32); Bilirubin Direct 0.1 mg/dL (0-0.2); Bilirubin Total 0.3 mg/dL (0.2-1.0); Glucose Level 147 mg/dL (74-106); Magnesium 1.5 mg/dL (1.8-2.4); Protein, Total 7.4 g/dL (6.4-8.2); Sodium Level 143 mmol/L (136-145)
--- NOTE | 2019-09-10 14:02 | RAD REPORT ---
EXAM DESCRIPTION: CT - Head Brain Wo Cont - 09/10/2019 1:55 pm CLINICAL HISTORY: Headache COMPARISON: None. TECHNIQUE: Computed axial tomography of the head was obtained. IV contrast was not requested. All CT scans are performed using dose optimization technique as appropriate and may include automated exposure control or mA/KV adjustment according to patient size. FINDINGS: An intracranial bleed is not seen . The ventricles are normal in caliber. No extra-axial fluid collection is noted. Fluid within the sinuses/ mastoids is not seen. IMPRESSION: No acute intracranial abnormality is seen. If patient's symptoms persist MRI of the bra in would be recommended.
[2019-09-10 14:04] LABS: NT PRO-BNP 123 pg/mL (<125); Troponin (Emerg Dept Use Only) < 0.02 ng/mL (0.0-0.045)
--- NOTE | 2019-09-10 14:07 | RAD REPORT ---
EXAM DESCRIPTION: Maco Single View09/10/2019 1:46 pm CLINICAL HISTORY: Chest pain COMPARISON: 2019 FINDINGS: The lungs appear clear of acute infiltrate. The heart is normal size IMPRESSION: No acute abnormalities displayed
[2019-09-10] MEDS ORDERED: NA CHLORIDE 0.9% 250 ML ONE (14:53)
[2019-09-10] MEDS ORDERED: POTASSIUM 25 MEQ EFFERV TAB ONE (14:53)
[2019-09-10] MEDS ORDERED: MAGNESIUM SULFATE 1 gm IVPB 1 GM/100 ML BAG IV ONE (14:53)
[2019-09-10] MEDS ORDERED: METOCLOPRAMIDE 10 MG/2mL INJ ONE (14:53)
[2019-09-10] MEDS ORDERED: DIPHENHYDRAMINE 50 MG/ML VIAL ONE (14:53)
[2019-09-10 14:58] LABS: Blood Morphology Comment NOT SEEN (NOT SEEN); Platelet Estimate ADEQ; Urine White Blood Cell Casts OK
--- NOTE | 2019-09-10 15:17 | RAD REPORT ---
EXAM DESCRIPTION: CT - Chest For Pe Angio - 09/10/2019 2:58 pm CLINICAL HISTORY: CHEST PAIN COMPARISON: Chest Single View dated 09/10/2019 TECHNIQUE: Dynamically enhanced 3 mm thick images of the chest were obtained during administration o f approximately 150mL Isovue 370 IV contrast. Coronal and oblique MIP reconstruction images were gene rated and reviewed. Exam utilizes a protocol to evaluate the pulmonary arterial tree. All CT scans are performed using dose optimization technique as appropriate and may include automated exposure control or mA/KV adjustment according to patient size. FINDINGS: No pulmonary emboli are identified. The aorta as imaged shows no acute or suspicious finding. No pericardial thickening or effusion. No infiltrate or mass in the lung parenchyma. No pleural effusion or pleural thickening. No mediastinal or hilar suspicious masses. No chest wall masses or abnormal axillary lymphadenopathy. Partially imaged abdomen shows fatty infiltration of the liver. IMPRESSION: No pulmonary emboli identified. Fatty infiltration is present in a partially visualized liver. No other significant or suspicious findings.
--- NOTE | 2019-09-10 15:23 | ER ---
Nurse's Notes [facility] Name: Walt Stapleton Age: 58 yrs Sex: Female : 1960 Arrival Date: 09/10/2019 Time: 12:43 Bed 5 Private MD: Sia Hong Diagnosis: Other chest pain;Headache;Hypokalemia;Hypomagnesemia Presentation: 09/10 12:43 Presenting complaint: Patient states: "for the past 2 days I've been feeling bad, I aa5 have chest tightness, I've been off balance when I walk, I have a headache on the top of my head, short of breath, dry cough, nausea, vomiting, and diarrhea". Pt reports recently diagnosed with Crohn's and states "I went to the entertainment [facility] about 2 months ago and they did a stress test and they said I needed a heart stent but when they did it they said my arteries where open and I didn't need the stent". 12:43 Transition of care: patient was not received from another setting of care. Onset of aa5 symptoms was September 2019. Risk Assessment: Do you want to hurt yourself or someone else? Patient reports no desire to harm self or others. Initial Sepsis Screen: Does the patient meet any 2 criteria? No. Patient's initial sepsis screen is negative. Does the patient have a suspected source of infection? No. Patient's initial sepsis screen is negative. Care prior to arrival: None. 12:43 Method Of Arrival: Wheelchair aa5 12:43 Acuity: PRETTY 3 aa5 Historical: - Allergies: 12:43 No Known Allergies; aa5 - PMHx: 12:43 Hypertension; Diabetes - IDDM; Hyperlipidemia; CVA; Crohn's; aa5 - PSHx: 12:43 [id number]; Hysterectomy; heart cath; aa5 - Immunization history:: Adult Immunizations unknown. - Coronavirus screen:: The patient has NOT traveled to [place], [place], or [place] in the past 14 days. The patient has NOT had contact with known/suspected case of Coronavirus?. - Social history:: Smoking status: Patient denies any tobacco usage or history of. - Ebola Screening: : No symptoms or risks identified at this time. Screenin:40 Abuse screen: Denies threats or abuse. Nutritional screening: No deficits noted. em Tuberculosis screening: No symptoms or risk factors identified. Fall Risk None identified. Assessment: 12:45 General: Appears comfortable, Behavior is calm, cooperative. Pain: Complains of pain in aa5 mid-sternal area and top of head Pain does not radiate. Pain currently is 7 out of 10 on a pain scale. Quality of pain is described as aching, tight Pain began 2-3 days ago. Is continuous. Neuro: Level of Consciousness is awake, alert, obeys commands, Oriented to person, place, time, situation, Administrative Supervisor are weak on left Moves all extremities. Weakness in left arm(s) leg(s) Speech is normal, Facial symmetry appears normal. Cardiovascular: Heart tones S1 S2 present Rhythm is regular. Respiratory: Reports shortness of breath cough that is dry, Airway is patent Respiratory effort is even, unlabored, Respiratory pattern is regular, symmetrical, Breath sounds are clear bilaterally. GI: Abdomen is round non-distended, Bowel sounds present X 4 quads. Abd is soft and non tender X 4 quads. Reports diarrhea, nausea, vomiting. : No signs and/or symptoms were reported regarding the genitourinary system. EENT: No signs and/or symptoms were reported regarding the EENT system. Derm: Skin is dry, Skin is normal, Skin temperature is warm. Musculoskeletal: Range of motion: intact in all extremities. 12:45 Reassessment: Pt reports she is ambulatory with cane at home. . aa5 13:00 Reassessment: Pt states "I used to take Plavix a long time ago but they took me off of aa5 it". PA was notified. . 14:44 Neuro: Level of Consciousness is awake, alert, obeys commands, Oriented to person, aa5 place, time, situation. Respiratory: Airway is patent Respiratory effort is even, unlabored, Respiratory pattern is regular, symmetrical. Derm: Skin is dry, Skin is normal, Skin temperature is warm. 15:35 Reassessment: Patient states feeling better. Pt reports headache has decreased, reports aa5 chest tightness has decreased. . Pain: Pain currently is 5 out of 10 on a pain scale. Neuro: Level of Consciousness is awake, alert, obeys commands, Oriented to person, place, time, situation. Respiratory: Airway is patent Respiratory effort is even, unlabored, Respiratory pattern is regular, symmetrical. Derm: Skin is dry, Skin is normal, Skin temperature is warm. 17:40 Reassessment: Pt given food tray, pt sitting up in bed. Appears comfortable, holding a aa5 conversation with family. Pt notified of wait time for room assignment. . 19:25 Reassessment: Pt is A\\T\\O x 4, resp unlabored, IV site intact, patent, no erythema or bb edema noted, pt talking to family member with no signs of distress noted, pt instructed on room assignment, report called to Tia RAMIREZ for room 209. Vital Signs: 12:45 Pulse 88; Resp 18 S; Temp 98.0(TE); Pulse Ox 100% on R/A; Weight 107.05 kg (R); Height aa5 5 ft. 5 in. (165.10 cm) (R); Pain 7/10; 12:48 BP 171 / 86; em 13:30 BP 141 / 100; Pulse 88; Resp 16; Pulse Ox 99% on R/A; em 14:44 BP 174 / 90; Pulse 80; Resp 20 S; Pulse Ox 99% on R/A; Pain 7/10; aa5 15:30 BP 141 / 101; Pulse 76; Resp 18; Pulse Ox 100% on R/A; ph 17:00 BP 168 / 99; Pulse 82; Resp 16; Pulse Ox 99% on R/A; ph 18:32 BP 173 / 93; Pulse 78; Resp 18; Pulse Ox 95% on R/A; em 12:45 Body Mass Index 39.27 (107.05 kg, 165.10 cm) aa5 ED Course: 12:43 Patient arrived in ED. mr 12:43 Sia Hong MD is Private Physician. mr 12:43 Arm band placed on Patient placed in an exam room, on a stretcher. aa5 12:43 Patient has correct armband on for positive identification. Placed in gown. Bed in low aa5 position. Call light in reach. Side rails up X2. sulfuric acid plant operator on. Pulse ox on. NIBP on. 12:56 Carli Gaytan, ASHLEY is Primary Nurse. aa5 12:59 Triage completed. aa5 13:07 EKG done, by telegraph repeater technician. reviewed by Frandy Gomez MD. at1 13:08 Missed attempt(s): 18 gauge in left antecubital area. Bleeding controlled, band aid dh3 applied, catheter tip intact. 13:10 Missed attempt(s): 22 gauge in left antecubital area. Bleeding controlled, band aid dh3 applied, catheter tip intact. 13:11 Edu Brooke PA is PHCP. [facility] 13:11 Frandy Gomez MD is Attending Physician. jmm 15:21 Dorothy Villalobos MD is Hospitalizing Provider. [facility] 15:42 No provider procedures requiring assistance completed. Patient maintains SpO2 aa5 saturation greater than 95% on room air. 17:50 Report given to ASHLEY Lobato and ASHLEY Paul. aa5 19:27 Patient admitted, IV remains in place. bb Administered Medications: 15:10 Drug: diphenhydrAMINE 12.5 mg Route: IVP; Site: right forearm; aa5 15:20 Follow up: Response: No adverse reaction aa5 15:10 Drug: NS 0.9% 250 ml Route: IV; Rate: bolus; Site: right forearm; aa5 15:35 Follow up: IV Status: Completed infusion; IV Intake: 250ml aa5 15:12 Drug: Reglan 10 mg Route: IVP; Site: right forearm; aa5 15:35 Follow up: Response: No adverse reaction; Marked relief of symptoms aa5 15:21 Drug: Klor-Con Effervescent Tablet 50 mEq Route: PO; aa5 17:50 Follow up: Response: No adverse reaction aa5 15:30 Drug: Magnesium Sulfate 1 grams Route: IVPB; Infused Over: 1 hrs; Site: right forearm; aa5 16:30 Follow up: IV Status: Completed infusion aa5 15:35 Drug: Aspirin Chewable Tablet 324 mg Route: PO; aa5 17:50 Follow up: Response: No adverse reaction aa5 Intake: 15:35 IV: 250ml; Total: 250ml. aa5 Outcome: 15:22 Decision to Hospitalize by Provider. [facility] 19:26 Admitted to Tele accompanied by tech, via stretcher, room 209, with chart, Report bb called to Tia RAMIREZ 19:26 Condition: stable 19:26 Instructed on the need for admit. 19:33 Patient left the ED. bb Signatures: Edu Brooke PA PA jmm Rivera, Mary Humberto Stoll RN RN em Ballard, Brenda, RN RN bb Calderon, Carli, RN RN aa5 Diana Anderson, viscosity inspector EKG Tat1 Cheryle Mayfield RN RN [facility] Linda 3
--- NOTE | 2019-09-10 15:23 | EDPHYS ---
Physician Documentation [facility] Name: Walt Stapleton Age: 58 yrs Sex: Female : 1960 Arrival Date: 09/10/2019 Time: 12:43 Bed 5 Private MD: Sia Hong ED Physician Frandy Gomez HPI: 09/10 13:11 This 58 yrs old Black Female presents to ER via Wheelchair with complaints of Chest jmm Pain. 13:11 The patient or guardian reports chest pain that is located primarily in the substernal jmm area. Onset: gradually, 2 day(s) ago. The pain does not radiate. Associated signs and symptoms: Pertinent positives: shortness of breath. The chest pain is described as a pressure. Duration: The patient or guardian reports a single episode, that is still ongoing. Modifying factors: The symptoms are alleviated by nothing. the symptoms are aggravated by nothing. This si a 58 year old female with a history of htn, dm, hlp, cva, that presents to the ED with complaints of a frontal headache which began approx 3 days ago with chest pain. Patient states chest pain has been constant for approx 2 days. Patient is concerned due to similar headache with previous stroke. Patient denies any new weakness. . Historical: - Allergies: 12:43 No Known Allergies; aa5 - PMHx: 12:43 Hypertension; Diabetes - IDDM; Hyperlipidemia; CVA; Crohn's; aa5 - PSHx: 12:43 C1-[id number]; Hysterectomy; heart cath; aa5 - Immunization history:: Adult Immunizations unknown. - Coronavirus screen:: The patient has NOT traveled to [place], [place], or [place] in the past 14 days. The patient has NOT had contact with known/suspected case of Coronavirus?. - Social history:: Smoking status: Patient denies any tobacco usage or history of. - Ebola Screening: : No symptoms or risks identified at this time. ROS: 13:11 Constitutional: Negative for fever, chills, and weight loss, Respiratory: Negative for jmm shortness of breath, cough, wheezing, and pleuritic chest pain. 13:11 Cardiovascular: Positive for chest pain. 13:11 Neuro: Positive for headache. 13:11 All other systems are negative. Exam: 13:11 Constitutional: This is a well developed, well nourished patient who is awake, alert, jmm and in no acute distress. Head/Face: atraumatic. Eyes: EOMI, no conjunctival erythema appreciated ENT: Moist Mucus Membranes Neck: Trachea midline, Supple Chest/axilla: Normal chest wall appearance and motion. Cardiovascular: Regular rate and rhythm. No edema appreciated Respiratory: Normal respirations, no respiratory distress appreciated Abdomen/GI: Non distended, soft Back: Normal ROM Skin: General appearance color normal 13:11 Cardiovascular: Rate: normal, Rhythm: regular, Pulses: no pulse deficits are appreciated. 13:11 Neuro: Orientation: is normal, Mentation: is normal, Memory: is normal, Cerebellar function: normal finger to nose testing, weakness noted to the left side, no drift appreciated. 13:11 Psych: Behavior/mood is pleasant, cooperative. Vital Signs: 12:45 Pulse 88; Resp 18 S; Temp 98.0(TE); Pulse Ox 100% on R/A; Weight 107.05 kg (R); Height aa5 5 ft. 5 in. (165.10 cm) (R); Pain 7/10; 12:48 BP 171 / 86; em 13:30 BP 141 / 100; Pulse 88; Resp 16; Pulse Ox 99% on R/A; em 14:44 BP 174 / 90; Pulse 80; Resp 20 S; Pulse Ox 99% on R/A; Pain 7/10; aa5 15:30 BP 141 / 101; Pulse 76; Resp 18; Pulse Ox 100% on R/A; ph 17:00 BP 168 / 99; Pulse 82; Resp 16; Pulse Ox 99% on R/A; ph 18:32 BP 173 / 93; Pulse 78; Resp 18; Pulse Ox 95% on R/A; em 12:45 Body Mass Index 39.27 (107.05 kg, 165.10 cm) aa MDM: 13:16 Patient medically screened. [facility] 15:21 Data reviewed: vital signs, nurses notes, lab test result(s), radiologic studies. ED [facility] course: I discussed the patient with Dr. Villalobos whom accepted admission. . 09/10 13:11 Order name: Basic Metabolic Panel [facility] 09/10 13:11 Order name: CBC with Diff [facility] 09/10 13:11 Order name: LFT's [facility] 09/10 13:11 Order name: Magnesium [facility] 09/10 13:11 Order name: NT PRO-BNP [facility] 09/10 13:11 Order name: PT-INR [facility] 09/10 13:11 Order name: Troponin (emerg Dept Use Only) [facility] 09/10 13:25 Order name: CBC with Automated Diff; Complete Time: 15:03 EDMS 09/10 13:40 Order name: Basic Metabolic Panel; Complete Time: 13:44 EDMS 09/10 13:40 Order name: Liver (Hepatic) Function; Complete Time: 13:44 EDMS 09/10 13:40 Order name: Magnesium; Complete Time: 13:44 EDMS 09/10 13:55 Order name: Protime (+INR); Complete Time: 14:03 EDMS 09/10 14:08 Order name: Troponin (Emerg Dept Use Only); Complete Time: 14:11 EDMS 09/10 14:08 Order name: NT PRO-BNP; Complete Time: 14:11 EDMS 09/10 13:11 Order name: XRAY Chest (1 view) [facility] 09/10 13:11 Order name: EKG; Complete Time: 13:19 [facility] 09/10 13:40 Order name: CT Head Brain wo Cont [facility] 09/10 14:33 Order name: CT Chest For PE Angio [facility] 09/10 15:02 Order name: CBC Smear Scan; Complete Time: 15:03 EDMS 09/10 15:35 Order name: Urine Dipstick--Ancillary (enter results) [facility] 09/10 16:38 Order name: Urine Dipstick-Ancillary; Complete Time: 16:39 EDMS 09/10 18:26 Order name: CT; Complete Time: 18:39 EDMS 09/10 18:27 Order name: RAD; Complete Time: 18:39 EDMS 09/10 18:29 Order name: CT; Complete Time: 18:39 EDMS 09/10 13:11 Order name: Cardiac monitoring; Complete Time: 13:16 [facility] 09/10 13:11 Order name: EKG - Nurse/Tech; Complete Time: 13:16 [facility] 09/10 13:11 Order name: IV Saline Lock; Complete Time: 13:16 [facility] 09/10 13:11 Order name: Labs collected and sent; Complete Time: 13:16 [facility] 09/10 13:11 Order name: O2 Per Protocol; Complete Time: 13:16 [facility] 09/10 13:11 Order name: O2 Sat Monitoring; Complete Time: 13:16 [facility] 09/10 16:26 Order name: Diet Heart Healthy; Complete Time: 16:27 ph Administered Medications: 15:10 Drug: diphenhydrAMINE 12.5 mg Route: IVP; Site: right forearm; aa5 15:20 Follow up: Response: No adverse reaction aa5 15:10 Drug: NS 0.9% 250 ml Route: IV; Rate: bolus; Site: right forearm; aa5 15:35 Follow up: IV Status: Completed infusion; IV Intake: 250ml aa5 15:12 Drug: Reglan 10 mg Route: IVP; Site: right forearm; aa5 15:35 Follow up: Response: No adverse reaction; Marked relief of symptoms aa5 15:21 Drug: Klor-Con Effervescent Tablet 50 mEq Route: PO; aa5 17:50 Follow up: Response: No adverse reaction aa5 15:30 Drug: Magnesium Sulfate 1 grams Route: IVPB; Infused Over: 1 hrs; Site: right forearm; aa5 16:30 Follow up: IV Status: Completed infusion aa5 15:35 Drug: Aspirin Chewable Tablet 324 mg Route: PO; aa5 17:50 Follow up: Response: No adverse reaction aa5 Disposition: 09/10/19 15:22 Hospitalization ordered by Dorothy Villalobos for Observation. Preliminary diagnosis are Other chest pain, Headache, Hypokalemia, Hypomagnesemia. - Bed requested for Telemetry/MedSurg (observation). - Status is Observation. bb - Condition is Stable. - Problem is new. - Symptoms are unchanged. Addendum: 09/12/2019 07:26 Co-signature as Attending Physician, Frandy Gomez MD. r n Signatures: Dispatcher [employer] EDEdu Pablo PA PA jmm Ballard, Brenda, RN RN bb Nieto, Roman, MD MD rn Martinez, Eric em1 Calderon, Audri, RN RN aa5 Corrections: (The following items were deleted from the chart) 09/10 18:50 15:22 Hospitalization Ordered by Dorothy Villalobos MD for Observation. Preliminary diagnosis em1 is Other chest pain; Headache; Hypokalemia; Hypomagnesemia. Bed requested for Telemetry/MedSurg (observation). Status is Observation. Condition is Stable. Problem is new. Symptoms are unchanged. [place] 19:33 18:50 09/10/2019 15:22 Hospitalization Ordered by Dorothy Villalobos MD for Observation. bb Preliminary diagnosis is Other chest pain; Headache; Hypokalemia; Hypomagnesemia. Bed requested for Telemetry/MedSurg (observation). Status is Observation. Condition is Stable. Problem is new. Symptoms are unchanged. em1
[2019-09-10] MEDS ORDERED: ASPIRIN 81 MG CHEWABLE TABLET ONE (15:40)
[2019-09-10 16:35] LABS: Urine Blood NEGATIVE (NEG); Urine Glucose NEGATIVE (NEG); Urine Protein NEGATIVE (NEG); Urine Specific Gravity 1.015 (1.005-1.030)
[2019-09-10] MEDS ORDERED: ACETAMINOPHEN 500 MG TAB PO PRN (19:33)
[2019-09-10] MEDS ORDERED: NITROGLYCERIN 0.4 MG/TAB SL PRN (19:33)
[2019-09-10] MEDS: INSULIN -REGULAR HUMAN 50 UNIT/0.5 ML ML SQ SCH ×2 (19:33→21:00)
[2019-09-10] MEDS ORDERED: LORAZEPAM 0.5 MG TABLET PO PRN (19:33)
[2019-09-10 19:50] VITALS: BMI 39.6
[2019-09-10] MEDS: TOPIRAMATE 25 MG TAB PO SCH (21:30)
[2019-09-10] MEDS: ATORVASTATIN 40 MG TAB PO SCH (21:30)
[2019-09-10] MEDS: METOPROLOL TAR 25 MG TAB PO SCH (21:31)
[2019-09-10] MEDS: MORPHINE 4 MG/ML SYR IV PRN (21:31)
[2019-09-10] MEDS: ONDANSETRON 4 MG/2 ML VIAL IV PRN (21:41)
[2019-09-11] MEDS: MORPHINE 4 MG/ML SYR IV PRN (01:29)
--- NOTE | 2019-09-11 03:10 | HP ---
Date of Admission: 09/10/2019 Primary Care Physician: Dr. Hong. Consultants: Dr. Garrett of Cardiology, Dr. Ramírez of Neurology. Chief Complaint: Chest pain, headache, ataxia. History Of Present Illness: Patient is a 58-year-old female with past medical history of CVA with ch ronic left-sided weakness from a brain herniation in 2008 in [place], [place]; diabetes; hypertension; Crohn disease; history of DVT, status post from which she describes as thrombectomy. Patient comes i n after 1-day history of frontal headaches as well as ataxia. Patient noted worsening weakness on th e left side. Patient was unable to coordinate herself walking and had to lay down in bed before she fell. She denies any fall or trauma. No recent changes in her medications. She also reported some chest pressure in the middle of her chest, which was nonradiating. Patient's symptoms are constant, moderate, progressively worsening. She also reports some shortness of breath. She came into the ER for further evaluation. Her workup revealed potassium of 3, magnesium of 1.5. Troponin was negative . EKG showed nonspecific changes. Her white blood cell count was elevated at 12,000. Imaging studi es including chest x-ray, CT angio of the chest were negative for PE. Chest x-ray was clear. Head C T scan showed no acute abnormality. Patient received aspirin, Benadryl, IV fluids, and some Reglan, which improved her headache; however, by the time I saw her, her headache returned. She was also giv en magnesium and potassium replacement. Patient was then referred for admission. When seen in the E R, she was awake, alert, oriented x3, in some mild distress. Past Medical History: History of CVA in 2008; diabetes; hypertension; Crohn disease; history of DVT; mild coronary artery disease, last heart catheterization was in January [address] Adams. Past Surgical History: Patient has had C1 through C7 reconstruction, this is related to her stroke; hysterectomy; heart catheterization with mild coronary artery disease, no stents; colonoscopy with po lyps that were removed. Allergies: IBUPROFEN. Medications: List reviewed. Social History: Patient denies any tobacco use or alcohol use. She quit smoking several years ago. Patient does use a cane to walk, has a son, good social support. Recently moved back from [place]. Family History: Negative for any premature coronary artery disease. Review of Systems: 10-point systems reviewed, negative except as per HPI. Physical Examination: Vital Signs: Heart rate 88, respirations 18, temperature 98, O2 100% on room air, blood pressure 171 /86, BMI is 39. General: Awake, alert, oriented x3, some mild distress due to headache, morbidly obese female, ill a ppearing. HEENT: Normocephalic, atraumatic. PERRLA. EOMI. Patient does have erythema of the left conjunctiv a and a stye on her upper eyelid on the left. No current drainage. Oropharynx is clear. Poor denti tion. Neck: Supple. No JVD. Trachea midline. CV: S1, S2. Regular rate and rhythm. Peripheral pulses present. Respiratory: Moving air well bilaterally. No wheezing or stridor. No use of accessory muscles. Gastrointestinal: Abdomen is soft, nontender, nondistended. Positive bowel sounds. Extremities: No clubbing, cyanosis, or edema. No calf tenderness. Neuro: Cranial nerves 2 through 12 intact grossly. Patient has weakness on the left side, which is chronic for her, 4/5 upper and lower extremities. Right upper and lower extremities, 5/5 strength, m ajor muscle group. Speech is normal. No facial asymmetry. Psych: Mood is okay. Affect is full. Insight and judgment are good. Skin: Patient has healed incision scar on the cervical spine from previous surgery. No rashes. Nor mal skin turgor. Laboratory Data: UA is negative. Sodium 143, potassium 3, chloride 107, CO2 28, BUN 7, creatinine 0 .58, glucose 147, calcium 8.9, magnesium 1.5. AST 10, ALT 21, total bilirubin 0.3. Troponin less th an 0.02. BNP 123. Albumin 3.6. INR 1.04. WBC 12, H and H 12.5 and 39.2, platelets 242, neutrophil s 66%. Imaging Studies: CT angio of chest shows no PE. Fatty infiltration is present in the partially visu alized liver. There are no significant or suspicious findings. Head CT scan shows no acute intracra nial abnormality. Chest x-ray personally reviewed, shows no acute abnormalities. Assessment: 58-year-old female with: 1.Ataxia, unclear etiology, possibly transient ischemic attack versus cerebrovascular accident. Hea d CT scan was negative. We will consult Neurology. Start on aspirin, statin. Obtain MRI of the bra in if not improving. 2.Headache. Patient states this headache is similar to her previous prior to her stroke, improved w ith medications. We will continue with antiemetics and pain medications. 3.Chest pain, possibly unstable angina. Patient had a heart catheterization in January 2019, had mild coronary artery disease. Reports chest pressure. Initial cardiac enzymes negative. We will obtain serial cardiac enzymes and EKG. Consult Cardiology. Obtain echocardiogram. Nitroglycerin and morph ine p.r.n. 4.Left conjunctivitis of the eye. Failed outpatient treatment. Patient was on ointment and drops p reviously. We will continue with erythromycin ointment. 5.Diabetes mellitus type 2, insulin requiring. We will continue with sliding scale insulin. Monito r blood glucose levels. Check hemoglobin A1c. 6.Essential hypertension. Resume home medications as appropriate. 7.History of prior lower extremity deep venous thrombosis. 8.History of previous cerebrovascular accident with left-sided weakness. 9.Status post cervical spinal reconstruction with cadaver graft. We will obtain previous reports fr [facility]. 10.Morbid obesity, body mass index 39.6 with multiple comorbid conditions including diabetes, hypert ension. 11.Crohn disease. 12.Deep venous thrombosis prophylaxis. Lovenox. Plan: Admit patient to Med-Surg, [facility] as observation. JENNY Voice ID: [id number]
[2019-09-11 06:38] LABS: BUN Blood Urea Nitrogen 9 mg/dL (7-18); Bicarbonate 29 mmol/L (21-32); Glucose Level 156 mg/dL (74-106); HDL Cholesterol 45 mg/dL (40-60); LDL Cholesterol, Calculated 68 (<130); Magnesium 1.9 mg/dL (1.8-2.4); Potassium 3.4 mmol/L (3.5-5.1); Sodium Level 139 mmol/L (136-145)
[2019-09-11 06:48] LABS: Absolute Lymphocytes (CBC) 3.1 K/uL (0.7-4.9); Basophils % 0.6 % (0-1.3); Hematocrit 39.8 % (36.0-45.0); RBC Red Blood Cell Count 4.65 M/uL (3.86-4.86)
[2019-09-11] MEDS: INSULIN -REGULAR HUMAN 50 UNIT/0.5 ML ML SQ SCH ×4 (07:30→21:55)
[2019-09-11] MEDS ORDERED: POTASSIUM CL SA 10 MEQ TAB PO ONE (08:00)
[2019-09-11] MEDS ORDERED: ALPRAZOLAM 0.25 MG TABLET PO PRN (08:27)
--- NOTE | 2019-09-11 08:45 | EKG ---
Test Date: 2019-09-10 Test Time: 13:05:11 Electric Motor Assembler: CIERRA MEASUREMENT RESULTS: Intervals: Rate: 73 ME: 172 QRSD: 88 QT: 426 QTc: 469 Minto: P: 61 ME: 172 QRS: 5 T: -4 INTERPRETIVE STATEMENTS: Normal sinus rhythm Nonspecific T wave abnormality Prolonged QT Abnormal ECG No previous ECG available for comparison Electronically Signed On 09-11-19 08:44:51 PROFESSOR OF BIBLICAL STUDIES by Carlos Garrett
[2019-09-11] MEDS: METOPROLOL TAR 25 MG TAB PO SCH ×2 (08:49→20:34)
[2019-09-11] MEDS: ASPIRIN EC 81 MG TAB PO SCH (08:49)
[2019-09-11] MEDS ORDERED: LORazepam 2 MG/ML VIAL IV ONE (09:46)
--- NOTE | 2019-09-11 10:55 | CON ---
Chief Complaint: Chest pain. History Of Present Illness: Mrs. Stapleton was having chest pain, but she was really having pain alycia rywhere. She is extremely agitated, depressed, anxious, upset, unable to complete some sentences bec ause she wants to start the next one and explain things, a large number of things that have gone wron g for her recently. She moved from [place]. She is a chronic pain patient, recently diagnosed with Crohn colitis and before the patient could have a GI workup, they requested a cardiac workup, so a ca rdiac cath was done on Mrs. Stapleton just a matter of a few months ago. The exact date was January. All the coronary arteries were normal. The patient does not use tobacco. She quit more than 6 y ears ago. She had a cardiac cath in the past that was normal. She has underlying diabetes, hyperten onesimo, dyslipidemia, morbid obesity, Crohn colitis, numerous spine problems, probably has underlying d epression and anxiety as well, perhaps bipolar disorder. Physical Examination: General: She is 5 feet 5 inches, 238 pounds. Lungs: Clear. Heart: Within normal limits. Extremities: Reveal palpable pulses. No cyanosis, clubbing, or edema. Laboratory Data: Electrocardiogram does not reveal infarction, injury or ischemia. Her cardiac enzy mes are normal. Assessment/plan: I think the patient is extremely anxious, depressed, upset, having chronic pain. I think medical therapy for her pain needs to be done and medical therapy for anxiety before anything can be done. She had some neurological symptoms that sound to me most like vertigo. I think Dr. Apryl brown is trying to work that up as well, but we do not need to do another stress test or echo or any such thing; she has had all those recentl y. SH/MODL Voice ID: [id number] Report ID: [id number]
--- NOTE | 2019-09-11 12:31 | RAD REPORT ---
EXAM DESCRIPTION: MRI - Brain W/Wo Cont - 09/11/2019 12:16 pm CLINICAL HISTORY: Headache; Ataxis, weakness, hx of CVA Headache, drowsiness COMPARISON: MRA Head Wo Cont dated 09/11/2019; Chest For Pe Angio dated 09/10/2019; Head Brain Wo Cont d ated 09/10/2019 TECHNIQUE: Multi-sequence, multiplanar MR imaging of the brain was performed with contrast. FINDINGS: No intracranial hemorrhage, hydrocephalus, or extra-axial fluid collection. No edema or sh ift of midline structures. No intracranial mass. DWI is negative for acute CVA. The midline structures are normally formed. Mastoid air cells and paranasal sinuses are clear. Post-contrast images show no abnormal enhancement to suggest tumor or infection. IMPRESSION: Negative for acute CVA or other acute intracranial process. No pathologic post-contrast enhancement suspected.
--- NOTE | 2019-09-11 12:35 | RAD REPORT ---
EXAM DESCRIPTION: MRI - MRA Head Wo Cont - 09/11/2019 12:17 pm CLINICAL HISTORY: Headache, Ataxia, weakness, Hx CVA CVA COMPARISON: Head Brain Wo Cont dated 09/10/2019; Brain W/Wo Cont dated 09/11/2019; MRA Neck W/Wo Cont da toño 09/11/2019; Chest For Pe Angio dated 09/10/2019 FINDINGS: 3D noncontrast [id number] MR angiography of the [place] was performed. No aneurysm, flow-limiting stenosis or vascular malformation is seen. Forward flow seen in codominant vertebral arteries. The visualized dural venous sinuses appear patent. IMPRESSION: No significant flow abnormality of the [place] is identified.
--- NOTE | 2019-09-11 12:38 | RAD REPORT ---
EXAM DESCRIPTION: MRI - MRA Neck W/Wo Cont - 09/11/2019 12:16 pm CLINICAL HISTORY: Headache; Ataxis, weakness, hx of CVA Headache, drowsiness COMPARISON: No comparisons FINDINGS: Contrast enhance 2D [id number] MR angiography of the neck vessels was performed. A left aortic arch is noted with normal great vessel origin pattern. Both common carotid arteries have a normal appearance without evidence of dissection or significant s tenosis. No significant internal carotid artery stenosis is identified on either side. Antegrade flow seen in both vertebral arteries. IMPRESSION: No significant flow abnormality of the neck vessels identified.
[2019-09-11] MEDS: HYDROCODONE/APAP 10/325 TAB PO PRN ×2 (12:52→20:35)
--- NOTE | 2019-09-11 19:52 | CON ---
Reason For Consultation: Consultation called because of possible stroke. History Of Present Illness: Ms. Stapleton is a 58-year-old right-handed patient wit h reported history of stroke with some residual left-sided weakness and possible Chiari malformation, for which she had surgery in 2009 posterior fossa and decompression. Subsequently, she has had lami nectomy that involves multiple cervical levels. She did recover from that well and was doing well un til she developed more weakness she thought on the left side and more problems with coordination, gai t, balance, and resulting in a falls. Her symptom onset began 2 days prior to her coming into [facility]. Her head CT scan was unremarkable for any acute ischemic or hemorrhagic change. She was admitted for stroke workup with mild left-sided weakness and incoordination with poor balance. A brain MRI done subsequently ruled out presence of any acute ischemic or hemorrhagic stroke. Study a ctually did not mention any prior craniotomy or surgeries. No notes made. Her neck magnetic resonan ce angiogram showed no significant abnormalities, neck vessels, and the brain magnetic resonance erin ogram showed no flow abnormalities in the [place]. She had a prior cardiac workup 6 months ago that was unremarkable when Dr. Garrett discontinued the echocardiogram. The patient does feel ru t she is back towards baseline level of functioning in terms of strength of the left upper and lower extremity at the time of my evaluation. Past Medical History: Hypertension, Crohn disease, history of deep vein thrombosis, coronary artery disease, Sawyer's. Heart catheterization was done by Dr. Adams in 2018. She has diabetes mellitus and reported stroke in 2008, chronic migraine. Past Surgical History: C1 through C7 laminectomy and posterior fossa decompression, hysterectomy, he art catheterization, colonoscopy with polyp removal. Allergies: IBUPROFEN. Social History: Denies alcohol, tobacco, or IV drug use. She does ambulate with a cane and her son provides help and lived with her locally. Family History: Denies any stroke or coronary artery disease. Review of Systems: No recent fevers or chills, myalgias, arthralgias, headache, weight change, rash, or psychiatric comp laints. No gastrointestinal or genitourinary issues. Physical Examination: Vital Signs: Blood pressure 164/81, pulse 70, respiratory rate 18, temperature 97.5, oxygen saturati on 97% on room air. General: Ms. Stapleton is sitting at the side of the bed, in no acute distress. HEENT: She is normocephalic, atraumatic. Sclerae anicteric. Oropharynx is pink and moist. Neck: Supple. Chest: Clear. Heart: Regular. Extremities: No significant clubbing, cyanosis, or edema. Neurological: She is alert and oriented to situation, place, and person. Cranial nerves do not show any focal deficits on either side and intact. Motor examination subtle 5-/5 weakness proximal and d istally in the left upper and lower extremity compared to the right upper and lower extremities. Int act sensation in terms of left to right with stocking-glove loss. Reflexes are depressed in the uppe r and lower extremities. Coordination is intact in upper lower extremities. Gait, she uses a cane t o ambulate and is in the right hand. Laboratory Studies: Complete blood count with differential is essentially unremarkable. Coagulation panel is normal. Chemistries showed slightly low potassium, which is corrected now 4.3, otherwise u nremarkable except glucose range up to 160s. Calcium and magnesium were normal. Triglycerides level 212, total cholesterol 155, LDL cholesterol 68, HDL cholesterol 45. Total vitamin D level is very l ow at 13.3. Assessment: Ms. Stapelton is a 58-year-old patient with reported history of stroke and multiple card iovascular and coronary artery disease risk factors, diabetes mellitus, and hypertension. She has ve ry low vitamin D level and reportedly has Chiari malformation with posterior fossa decompression and multiple cervical level laminectomies. She has a history of migraine and has had reported headaches while in hospital. Headaches are in the top of her head and in addition to the left side with some l ight sound hypersensitivity and nausea. Plan: 1.Topamax 25 mg at night for migraine prophylaxis. 2.Cambia 50 mg as needed for abortive migraine treatment. 3.Aspirin 81 mg daily. 4.Aggressive management, hypertension, diabetes, dyslipidemia. 5.She should follow up with Dr. Ramírez 1 month later in clinic after discharge. ÁNGEL/SHAWNEE Voice ID: [id number] Report ID: [id number]
[2019-09-11] MEDS: ATORVASTATIN 40 MG TAB PO SCH (20:34)
[2019-09-11] MEDS: TOPIRAMATE 25 MG TAB PO SCH (20:35)
[2019-09-11] MEDS: ALPRAZOLAM 0.25 MG TABLET PO SCH (21:56)
[2019-09-11] MEDS: ONDANSETRON 4 MG/2 ML VIAL IV PRN (22:01)
[2019-09-12 04:56] VITALS: TEMP 98.2
--- NOTE | 2019-09-12 05:41 | DS ---
Date of service: 09/11/2019 Consultants: 1. Dr. Garrett with Cardiology. 2. Dr. Cook with Psychiatry. 3. Dr. Ramírez with Neurology. Procedures: None. Discharge Diagnoses: 1. Ataxia, cerebrovascular accident ruled out. 2. Cervical myelopathy. 3. Headache, likely migraine, Topamax started. 4. Chest pain, acute coronary syndrome ruled out. 5. Conjunctivitis of the left eye, stable. 6. Diabetes mellitus type 2, insulin requiring. 7. Essential hypertension, stable. 8. History of right lower extremity deep venous thrombosis. 9. History of previous cerebrovascular accident with left-sided weakness. 10. Status post cervical spinal reconstruction. 11. Morbid obesity. 12. Crohn disease. 13. Generalized anxiety disorder. Hospital Course: Patient is a 58-year-old female with past medical history of CVA, left-sided weakness, Brown-Sequard syndrome, diabetes, hypertension, Crohn disease, DVT, severe anxiety. Comes in with chest pain, headache, ataxia. Patient was admitted to the hospital for further evaluation. However, if cardiac enzymes were negative, ACS was ruled out, she was seen by ben day artist Dr. Garrett's did not recommend any further workup. She has recently had a stress test, echocardiogram done 6 months prior and she will need to follow up with her primary ben day artist, Dr. Adams, as an outpatient. 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 Patient was re-evaluated with MRI. Stroke workup was negative for any acute cerebrovascular accident. Patient does have chronic left-sided weakness, which is at its baseline. MRA neck was also done. CT angio chest was done to rule out PE, which was negative. Patient is seen by Dr. Ramírez, Neurology, who recommended Topamax for her headaches, likely migraine type of headaches. Patient was very emotionally labile. She does have generalized anxiety disorder. She was seen by Dr. Cook with Psychiatry, who recommended Lexapro and increasing her Xanax. Overall, patient did well, she was then cleared for discharge by consultants. Followup: She is to follow up with the primary care physician in 2-3 days. Follow up with ben day artist, Dr. Adams in 2 weeks. Follow up with neurologist , Dr. Ramírez in 2 weeks. Follow up with psychiatrist, Dr. Cook in 2 weeks. Medications: As per medication reconciliation list. Activity: Fall precautions. No driving or operating heavy machinery while on narcotics or benzodiazepines. Ambulate with assist. Diet: Diabetic. Physical Examination: General: Awake, alert, and oriented, in no acute distress. Morbidly obese female. CV: S1, S2. Respiratory: Moving air well bilaterally. Abdomen: Abdomen is soft, nontender, nondistended. Positive bowel sounds. Extremities: No clubbing, cyanosis, or edema. Neuro: Left-sided weakness. SA/MODL Voice ID: [id number] Report ID: [id number] KASSI
[2019-09-12 06:22] VITALS: O2SAT 98
[2019-09-12] MEDS: INSULIN -REGULAR HUMAN 50 UNIT/0.5 ML ML SQ SCH ×2 (07:30→08:42)
[2019-09-12] MEDS: METOPROLOL TAR 25 MG TAB PO SCH (08:42)
[2019-09-12] MEDS: ASPIRIN EC 81 MG TAB PO SCH (08:43)
[2019-09-12] MEDS: ALPRAZOLAM 0.25 MG TABLET PO SCH (08:44)
[2019-09-12 08:46] VITALS: BP 158/73
[2019-09-12] MEDS ORDERED: ESCITALOPRAM 20 MG TAB PO SCH (09:00)
--- NOTE | 2019-09-12 15:23 | PN ---
Date of Progress Note: 09/12/2019 Subjective: Patient was discharged yesterday, however, did not leave stating that she did not have a ride this morning. Her son has dropped her car off and she will be leaving voluntarily. Otherwise, had an uneventful night. Medications: List reviewed. Physical Examination: Vital Signs: Temperature 98.2, heart rate 88, blood pressure 148/56, respirations 17, O2 of 98% on r oom air. General: Awake, alert, and oriented x3, not in any acute distress. CV: S1, S2. Respiratory: Moving air well bilaterally. Abdomen: Soft, nontender, nondistended. Positive bowel sounds. Extremities: No clubbing, cyanosis, or edema. Neurologic: Nonfocal. Patient has other than some mild left-sided weakness. Assessment: 1.Ataxia, cerebrovascular accident ruled out. 2.Cervical myelopathy affecting the left side. 3.Headache with likely migraine improved with Topamax. 4.Chest pain, acute coronary syndrome ruled out. 5.Conjunctivitis of the left eye, improving. 6.Diabetes mellitus type 2, insulin requiring, stable. 7.Essential hypertension, stable. 8.History of deep venous thrombosis. 9.History of previous Brown-Sequard syndrome with left-sided weakness. 10.Status post cervical spinal reconstruction. 11.Morbid obesity. 12.Crohn disease, stable. 13.Generalized anxiety disorder, stable. Plan: Patient was discharged yesterday, awaiting transport. /SHAWNEE Voice ID: [id number] Report ID: [id number]
--- NOTE | 2019-09-14 11:55 | CON ---
This is a consultation to evaluate patient's anxiety symptom and recommend provide recommendations History Of Present Illness: Ms. Walt Stapleton is a 58-year-old - Burkin[place] female with psychiatric history significant for generalized anxiety disorder, admitted on September 10, 2019 on account of severe headache and dizzy spells,patient has a previous history of CVA. The patient was seen in the ER and was subsequently admitted to the inpatient after initial workup revealed hypokalemia and hypomagnesemia. No evidence of CVA on imaging. No evidence of severe depression or suicidal ideation. Psychiatric evaluation revealed a 58- year-old -Burkin[place] female, who was met in her room. She reports chronic history of anxiety, which she describes as excessive worrying over everything and most times uncontrollable with associated panic attack. She identify following events as significant stressors; recent in the family and recent medical medical challenges facing her beloved uncle. She reports associated racing thought, difficulties sleeping at night and getting tired the following morning. The patient states she has been on numerous medications and taking on Xanax 1 mg p.r.n. which is prescribed and managed by her primary care physician has been effective. The patient couldn't remember names of medications she has been in the past. She denies neurovegetayive symptoms of depression. No suicidal or homicidal ideation and denies past psychiatry inpatient hospitalizations. Objective: Vital Signs: Blood pressure is 148/56, pulse rate is 88, temperature is 98.0, respiratory rate is 17. Mental Status Examination: Patient is an obese -Burkinan female, dressed in hospital gown and lying in bed, not in any acute distress. She is alert and oriented x3. She is superficially cooperates with interview. Made good eye contact. No stereotypic movements observed. within normal limits. Speech is essentially normal. She is observed to be mildly distracted. Her concentration and memory are fair. Mood she describes as worried. Affect is mood congruent. Thought process is linear. Thought content, no delusional thinking, no suicidal or homicidal ideation Thought process is linear. Fund of knowledge average. Language skills fair. Diagnoses: 1. Generalized anxiety disorder. 2. Disappearance and loss of a family member. Recommendations: 1. Will start the patient on Lexapro 5 mg p.o. daily. We will plan to titrate based on patient's tolerability and effectiveness. 2. Continue Xanax 0.5 mg p.o. b.i.d. p.r.n. for severe anxiety and panic attack. 3. Discussed recommendations with the patient's primary team. 4. Patient to follow up with psychiatrist 2 weeks post discharge Thank you for the consult. JUAN DAVID Voice ID: [id number] Report ID: [id number]
== END 2019-09-12 10:32 | disposition home or self-care (01) ==
LOC: ER 12:41 → ERHOLD 15:30 → 2ND 19:26
PROVIDERS: ADMIT Family Medicine; ATTEND Family Medicine
DX: R27.0 Ataxia, unspecified (principal); G95.9 Disease of spinal cord, unspecified; R51 Headache; R07.9 Chest pain, unspecified; H10.9 Unspecified conjunctivitis; E11.9 Type 2 diabetes mellitus without complications; I10 Essential (primary) hypertension; Z86.718 Personal history of other venous thrombosis and embolism; K50.90 Crohn's disease, unspecified, without complications; F41.9 Anxiety disorder, unspecified; I69.354 Hemiplegia and hemiparesis following cerebral infarction affecting left non-dominant side; E66.01 Morbid (severe) obesity due to excess calories; Z68.39 Body mass index [BMI] 39.0-39.9, adult
CPT/HCPCS: 96365; 93005; 85025 ×2; 80048 ×2; 36415; 83735 ×2; 84132; 85610; 80061; 82947 ×4; 80076; 81003; 84484 ×3; 83880; 70450; 71275; 71045; 70553; 70544; 70549; 94760; 96375; 99285; Q9967; A9577; J2765; J1200; J3475; J7030; J2405 ×2; G0378 ×4

== ENCOUNTER → 2023-09-01 | Emergency (ER) | payer OTHER ==
[~2023-09-01] MED LIST: ONDANSETRON 4 MG (ODT) TAB ONE; levoFLOXacin 250 MG TAB ONE
[2023-09-02 00:34] LABS: SARS-CoV-2 Antigen Rapid Res Negative (Negative)
[2023-09-02 00:55] LABS: Absolute Lymphocytes (CBC) 2.9 K/uL (0.7-4.9); Hematocrit 35.1 % (36.0-45.0); Lymphocytes % 21.2 % (15.3-44.8); MCV 85.7 fL (80-100); MPV 9.2 fL (7.6-11.3); Platelets 232 thou/uL (152-406); RBC Red Blood Cell Count 4.09 M/uL (3.86-4.86)
[2023-09-02 01:07] LABS: Potassium 3.4 mEq/L (3.5-5.1); Troponin High Sensitivity 17.1 pg/mL (<58.9)
--- NOTE | 2023-09-02 01:34 | ER ---
Nurse's Notes [facility] Name: Walt Stapleton Age: 62 yrs Sex: Female : 1960 Arrival Date: 09/01/2023 Time: 23:01 Bed 19 Private MD: Diagnosis: Cough;Dyspnea, unspecified;Diarrhea, unspecified Presentation: 09/01 23:16 Chief complaint: Patient states: pt woke up from sleep with diarrhea, shortness of as6 breath, and sweating. Coronavirus screen: At this time, the client does not indicate any symptoms associated with coronavirus-19. Ebola Screen: No symptoms or risks identified at this time. Initial Sepsis Screen: Does the patient meet any 2 criteria? No. Patient's initial sepsis screen is negative. Does the patient have a suspected source of infection? No. Patient's initial sepsis screen is negative. Risk Assessment: Do you want to hurt yourself or someone else? Patient reports no desire to harm self or others. Onset of symptoms was September 01, 2023. 23:16 Method Of Arrival: Ambulatory as6 23:16 Acuity: PRETTY 3 as6 Historical: - Allergies: 23:18 No Known Allergies; as6 - PMHx: 23:18 Diabetes - IDDM; CVA; Crohn's; Hyperlipidemia; Hypertension; as6 - PSHx: 23:18 back (Hypertension); Total abdominal hysterectomy; bladder; as6 - Immunization history:: Adult Immunizations up to date. - Social history:: Smoking status: Patient/guardian denies using tobacco, the patient reports quitting approximately 11 years ago. - Family history:: not pertinent. - Hospitalizations: : No recent hospitalization is reported. Screenin:30 [facility] ED Fall Risk Assessment (Adult) History of falling in the last 3 months, nw1 including since admission No falls in past 3 months (0 pts) Confusion or Disorientation No (0 pts) Intoxicated or Sedated No (0 pts) Impaired Gait Yes (1 pt) Mobility Assist Device Used Yes (1 pt) Altered Elimination No (0 pt) Score/Fall Risk Level 3 or more points = High Risk Oriented to surroundings, Maintained a safe environment, Educated pt \T\ family on fall prevention, incl call for assistance when getting out of bed, Assessed \T\ reinforced patient's understanding of fall precautions, Provided non-skid footwear, Hourly rounding (assess needs \T\ fall precautionary measures) done, Used ambulatory aids as needed (educated on \T\ assisted with), Implemented a Fall Risk Plan of Care. Abuse screen: Denies threats or abuse. Denies injuries from another. Nutritional screening: No deficits noted. Tuberculosis screening: No symptoms or risk factors identified. Assessment: 23:24 Reassessment: Patient noted in bed. No report received from triage nurse ASHLEY Zazueta. nw1 Assuming care at this time. 09/02 00:00 Pain: Complains of pain in generalized. nw 00:00 General: Appears in no apparent distress. comfortable, Behavior is calm, cooperative, nw1 appropriate for age. Cardiovascular: Rhythm is sinus rhythm. Respiratory: Airway is patent Trachea midline Respiratory effort is even, unlabored, Respiratory pattern is symmetrical, Breath sounds are clear bilaterally. GI: Abdomen is round obese. Derm: No deficits noted. No signs and/or symptoms reported regarding the dermatologic system. Musculoskeletal: No deficits noted. No signs and/or symptoms reported regarding the musculoskeletal system. 02:17 Reassessment: Pt noted agitated when receiving PO antibiotics. Pt went on a 5 min nw1 tangent about how food should always be given with antibiotics. Josh crackers given. Pt ate 1 packet of josh crackers without taking PO antibiotics and started vomiting x1. PO Zofran given and pt tolerated. Pt then swallowed both Levaquin pills without difficulty and without vomiting. SON Victoria to assist with discharge due to this nurse being in another room. Vital Signs: 09/01 23:16 BP 116 / 64; Pulse 73; Resp 18 S; Temp 97.8(O); Pulse Ox 100% on R/A; Weight 98.43 kg as6 (R); Height 5 ft. 4 in. (R); Pain 8/10; 23:30 BP 135 / 67; Pulse 77; Resp 17; Pulse Ox 100% ; nw1 09/02 00:00 BP 142 / 80; Pulse 75; Pulse Ox 100% ; nw1 00:30 BP 127 / 56; Pulse 78; Pulse Ox 100% on R/A; nw1 01:00 BP 132 / 59; Pulse 77; Resp 17; Pulse Ox 100% on R/A; nw1 02:20 BP 151 / 85; Pulse 90; Pulse Ox 100% on R/A; nw1 09/01 23:16 Body Mass Index 37.25 (98.43 kg, 162.56 cm) as6 09/01 23:16 Pain Scale: Adult as6 Vitals: 09/01 23:54 Cardiac Rhythm Assessment Sinus rhythm. nw1 Felda Coma Score: 23:30 Eye Response: spontaneous(4). Motor Response: obeys commands(6). Verbal Response: nw1 oriented(5). Total: 15. ED Course: 23:06 Patient arrived in ED. jj6 23:08 Frandy Gomez MD is Attending Physician. rn 23:18 Triage completed. as6 23:19 Arm band placed on. as6 23:30 Patient has correct armband on for positive identification. Placed in gown. Bed in low nw1 position. Call light in reach. Side rails up X2. Adult w/ patient. Provided Education on: POC. Client placed on continuous cardiac and pulse oximetry monitoring. NIBP monitoring applied. compliance monitor on. Pulse ox on. NIBP on. Door closed. Noise minimized. Warm blanket given. 23:30 No provider procedures requiring assistance completed. Inserted saline lock: 20 gauge nw1 in right forearm, using aseptic technique. Blood collected. 23:49 XRAY Chest (1 view) In Process Unspecified. EDMS 23:56 Carmita Kaiser, RN is Primary Nurse. nw1 23:56 SARS RAPID Sent. nw1 23:56 Flu Sent. nw1 23:56 Basic Metabolic Panel Sent. nw1 23:56 CBC with Diff Sent. nw1 23:56 NT PRO-BNP Sent. nw1 23:57 Troponin HS Sent. 09/02 00:00 IV discontinued, intact, bleeding controlled, No redness/swelling at site. Pressure nw1 dressing applied, discontinued by ASHLEY Victoria. Administered Medications: 02:15 Drug: Ondansetron PO 4 mg PO once Route: PO; nw 02:17 Drug: LevOfloxacin PO 500 mg PO once Route: PO; nw Medication: 09/01 23:30 VIS not applicable for this client. nw1 Outcome: 09/02 00:00 Discharged to home ambulatory, with friend, nw1 Condition: stable Discharge instructions given to patient, family, Instructed on discharge instructions, follow up and referral plans. medication usage, Demonstrated understanding of instructions, follow-up care, medications, Prescriptions given X 2, by ASHLEY Victoria 01:33 Discharge ordered by . rn 02:24 Patient left the ED. nw1 Signatures: Dispatcher [employer] EDMS Frandy Gomez MD MD rn Jeffries, Jennifer jj6 Slawson, Ashby, RN RN as6 Carmita Kaiser RN RN nw1
--- NOTE | 2023-09-02 01:34 | EDPHYS ---
Physician Documentation [facility] Name: Walt Stapleton Age: 62 yrs Sex: Female : 1960 Arrival Date: 09/01/2023 Time: 23:01 Bed 19 Private MD: ED Physician Frandy Gomez HPI: 09/01 23:36 This 62 yrs old Black Female presents to ER via Ambulatory with complaints of Shortness rn Of Breath, diarrhea. 23:36 Patient reports feeling generalized weakness, sweating, chills, shortness of breath, rn diarrhea, cough that began today. No documented fever. No known sick contacts. No blood in stool. No chest pain.. 23:36 Onset: The symptoms/episode began/occurred today. Severity of symptoms: At their worst rn the symptoms were mild in the emergency department the symptoms are unchanged. It is unknown whether or not the patient has had similar symptoms in the past. The patient has not recently seen a physician. Historical: - Allergies: 23:18 No Known Allergies; as6 - PMHx: 23:18 Diabetes - IDDM; CVA; Crohn's; Hyperlipidemia; Hypertension; as6 - PSHx: 23:18 back (Hypertension); Total abdominal hysterectomy; bladder; as6 - Immunization history:: Adult Immunizations up to date. - Social history:: Smoking status: Patient/guardian denies using tobacco, the patient reports quitting approximately 11 years ago. - Family history:: not pertinent. - Hospitalizations: : No recent hospitalization is reported. ROS: 23:36 Constitutional: Positive for chills ENT: Negative for injury, pain, and discharge, rn mobile: Negative for chest pain, palpitations, and edema, Respiratory: Positive for cough and shortness of breath Abdomen/GI: Negative for abdominal pain, positive for diarrhea MS/Extremity: Negative for injury and deformity, Skin: Negative for injury, rash, and discoloration, Neuro: Positive for generalized weakness and malaise Exam: 23:36 Constitutional: This is a well developed, well nourished patient who is awake, alert, rn and in no acute distress. Head/Face: Normocephalic, atraumatic. Cardiovascular: Regular rate and rhythm. No pulse deficits. Respiratory: Clear bilateral breath sounds. No increased work of breathing, no retractions or nasal flaring. Abdomen/GI: Soft, non-tender MS/ Extremity: Pulses equal, no cyanosis. Neurovascular intact. Full, normal range of motion. Equal circumference. Neuro: Awake and alert, GCS 15 09/02 01:37 ECG was reviewed by the Attending Physician. rn Vital Signs: 09/01 23:16 BP 116 / 64; Pulse 73; Resp 18 S; Temp 97.8(O); Pulse Ox 100% on R/A; Weight 98.43 kg as6 (R); Height 5 ft. 4 in. (R); Pain 8/10; 23:30 BP 135 / 67; Pulse 77; Resp 17; Pulse Ox 100% ; nw1 09/02 00:00 BP 142 / 80; Pulse 75; Pulse Ox 100% ; nw1 00:30 BP 127 / 56; Pulse 78; Pulse Ox 100% on R/A; nw1 01:00 BP 132 / 59; Pulse 77; Resp 17; Pulse Ox 100% on R/A; nw1 02:20 BP 151 / 85; Pulse 90; Pulse Ox 100% on R/A; nw1 09/01 23:16 Body Mass Index 37.25 (98.43 kg, 162.56 cm) as6 09/01 23:16 Pain Scale: Adult as6 Rosebud Coma Score: 09/01 23:30 Eye Response: spontaneous(4). Motor Response: obeys commands(6). Verbal Response: nw1 oriented(5). Total: 15. MDM: 23:08 Patient medically screened. rn 09/02 01:32 Differential Diagnosis Viral illness, pneumonia, flu, COVID. Data reviewed: vital rn signs, nurses notes, lab test result(s), radiologic studies, plain films, and as a result, I will discharge patient. Care significantly affected by the following chronic conditions: Diabetes, Hypertension. Counseling: I had a detailed discussion with the patient and/or guardian regarding the historical points, exam findings, and any diagnostic results supporting the discharge/admit diagnosis, lab results, radiology results, the need for outpatient follow up, to return to the emergency department if symptoms worsen or persist or if there are any questions or concerns that arise at home. Response to treatment: the patient's symptoms have mildly improved after treatment, and as a result, I will discharge patient. Special discussion: I discussed with the patient/guardian in detail that at this point there is no indication for admission to the hospital. It is understood, however, that if the symptoms persist or worsen the patient needs to return immediately for re-evaluation. ED course: Patient states feels better. Normal vital signs at this time. No oxygen requirement. Chest x-ray is clear. Flu and COVID-negative but is day one of her illness. Most likely viral syndrome given diarrhea plus cough and systemic symptoms but given comorbidities will cover with antibiotics as we do not know for sure that this is a viral infection. Had this discussion with patient and family member and they agree and are thankful. Will discharge home as no indication for emergent admission at this time.. 09/01 23:29 Order name: Basic Metabolic Panel; Complete Time: : rn 09/01 23: Order name: CBC with Diff; Complete Time: rn 09/01 23: Order name: NT PRO-BNP; Complete Time: : rn 09/01 23:29 Order name: Troponin HS; Complete Time: : rn 09/01 23:29 Order name: Flu; Complete Time: rn 09/01 23:29 Order name: SARS RAPID; Complete Time: rn 09/01 23:29 Order name: XRAY Chest (1 view) rn 09/01 23:29 Order name: EKG; Complete Time: 23:30 rn 09/01 23:29 Order name: Cardiac monitoring; Complete Time: 23:56 rn 09/01 23:29 Order name: EKG - Nurse/Tech; Complete Time: 01:37 rn 09/01 23:29 Order name: IV Saline Lock; Complete Time: 23:56 rn 09/01 23:29 Order name: Labs collected and sent; Complete Time: :56 rn 09/01 23:29 Order name: O2 Per Protocol; Complete Time: 23:56 rn 09/01 23:29 Order name: O2 Sat Monitoring; Complete Time: 23:56 rn EC:37 Rate is 72 beats/min. Rhythm is regular. QRS Weiser is Normal. MD interval is normal. QRS rn interval is normal. QT interval is normal. No Q waves. T waves are Normal. No ST changes noted. Clinical impression: Normal ECG. Interpreted by me. Reviewed by me. Administered Medications: 02:15 Drug: Ondansetron PO 4 mg PO once Route: PO; nw1 02:17 Drug: LevOfloxacin PO 500 mg PO once Route: PO; nw1 Disposition Summary: 09/02/23 01:33 Discharge Ordered Notes: Location: Home rn Problem: new rn Symptoms: have improved rn Condition: Stable rn Diagnosis - Cough rn - Dyspnea, unspecified rn - Diarrhea, unspecified rn Followup: rn - With: Private Physician - When: 1 - 2 days - Reason: Recheck today's complaints, Re-evaluation by your physician Discharge Instructions: - Discharge Summary Sheet rn - Diarrhea, Adult rn - Cough, Adult rn Forms: - Medication Reconciliation Form rn - Thank You Letter rn - Antibiotic [employer] certified internetwork expert - Prescription Opioid Use rn - Patient Portal Instructions rn - Leadership Thank You Letter rn Prescriptions: - ondansetron 4 mg Oral Tablet,disintegrating - take 1 tablet ORAL route every 8 hours As needed; 12 tablet; Refills: 0, rn Product Selection Permitted - levofloxacin 500 mg Oral tablet - take 1 tablet ORAL route once daily for 7 days; 7 tablet; Refills: 0, Product rn Selection Permitted Signatures: Dispatcher [employer] Frandy Devine MD MD rn Slawson, Ashby RN RN as6 Carmita Kaiser RN RN nw1
[2023-09-02 03:38] VITALS: TEMP 97.8; O2SAT 100
[2023-09-02 03:52] VITALS: BP 151/85
--- NOTE | 2023-09-02 12:50 | RAD REPORT ---
EXAM DESCRIPTION: RAD - Chest Single View - 09/01/2023 11:47 pm CLINICAL HISTORY: 62 years Female, Dyspnea;Cough COMPARISON: None. FINDINGS: Normal portable AP view of the chest. Soft tissue attenuation over the chest. Normal size of the cardiac silhouette. No consolidation. No pleural effusion or pneumothorax. No acute osseous ab normality. IMPRESSION: No acute radiographic abnormality. Electronically signed by: Iris Parr MD 09/02/2023 12:03 AM CUT AND PRINT MACHINE OPERATOR Due to temporary technical issues with the PACS/Fluency reporting system, reports are being signed by the in house radiologist without review as a courtesy to ensure prompt reporting. The interpreting r adiologist is fully responsible for the content of the report.
== END ==
LOC: ER 23:01
DX: R05.9 Cough, unspecified (principal); R06.00 Dyspnea, unspecified; R19.7 Diarrhea, unspecified; Z11.52 Encounter for screening for COVID-19; E11.9 Type 2 diabetes mellitus without complications; I10 Essential (primary) hypertension
CPT/HCPCS: 36415; 71045; 80048; 83880; 84484; 87804; 87811; 93005